=== PATIENT | female | born 1950 | race Caucasian/White ===

== ENCOUNTER → 2018-01-18 10:02 | Outpatient (CLI) | payer MEDICARE, OTHER, SELFPAY ==
[2018-01-18 12:01] LABS: Add Manual Diff / Slide Review NO; Basophils Percent Auto 0.8 % (0-2); Eosinophils Percent Auto 2.1 % (2-4); Hemoglobin 13.8 g/dL (12.0-16.0); Lymphocytes Percent Auto 27.6 % (25-40); Mean Corpuscular HGB Conc 33.6 % (30-36); Mean Corpuscular Volume 92.3 fL (80-100); Monocytes Percent Auto 9.7 % (3-14); Neutrophils Absolute Auto 3500 /uL (3000-5900); Neutrophils Percent Auto 59.8 % (50-75); Platelet Count 196 X10^3/uL (150-400); Red Blood Cell Count 4.45 X10^6/uL (4.0-5.2); Red Cell Distribution Width 12.9 % (11.6-14.8); White Blood Cell Count 5.9 X10^3/uL (4.5-11.0)
[2018-01-18 12:27] LABS: Alanine Aminotransferase 38 IU/L (9-52); Albumin 4.6 g/dL (3.5-5.0); Albumin Globulin Ratio 1.6 (1.0-2.8); Alkaline Phosphatase 100 U/L (38-126); Aspartate Aminotransferase 30 IU/L (14-36); Bilirubin Total 0.4 mg/dL (0.2-1.3); Blood Urea Nitrogen 20 mg/dL (7-17); Calcium 10.9 mg/dL (8.4-10.2); Carbon Dioxide 30 mmol/L (22-32); Chloride 102 mmol/L (98-107); Cholesterol 156 mg/dL (140-199); Estimated Glomerular Filt Rate > 60.0 mL/min (>60); Globulin 2.9 g/dL (1.7-4.1); Glucose 99 mg/dL (80-110); HDL Cholesterol 56 mg/dL (40-60); HEMOLYSIS < 15 (0-50); LDL Cholesterol Calculated 58 mg/dL (<100); Potassium 4.2 mmol/L (3.4-5.1); Sodium 143 mmol/L (137-145); Total Protein 7.5 g/dL (6.3-8.2); Triglycerides 209 mg/dL (35-150)
[2018-01-18 13:07] LABS: Thyroid Stimulating Hormone 3.64 uIU/mL (0.47-4.68)
== END ==
PROVIDERS: PCP Family Medicine; Visit Provider Family Medicine
DX: I10 Essential (primary) hypertension (principal); Z86.79 Personal history of other diseases of the circulatory system; E78.5 Hyperlipidemia, unspecified
CPT/HCPCS: 36415; 80053; 80061; 84443; 85025

== ENCOUNTER → 2018-01-25 11:17 | Outpatient (CLI) | payer MEDICARE, OTHER, SELFPAY ==
[2018-01-25 11:31] LABS: Appearance Urine UA CLEAR; Bilirubin Urine UA NEGATIVE (NEGATIVE); Color Urine UA YELLOW; Glucose Urine UA NEGATIVE (Normal); Ketones Urine UA NEGATIVE (NEGATIVE); Leukocyte Esterase Urine UA NEGATIVE (NEGATIVE); Nitrite Urine UA NEGATIVE (Negative); Occult Blood Urine UA NEGATIVE (Negative); Protein Urine UA NEGATIVE (Negative); Specific Gravity Urine UA 1.015 (1.000-1.035); Urobilinogen Urine UA 0.2 E.U./dL (0.2); pH Urine UA 6.5 (4.5-8.0)
== END ==
PROVIDERS: PCP Family Medicine; Visit Provider Family Medicine
DX: E78.5 Hyperlipidemia, unspecified (principal); I10 Essential (primary) hypertension; I25.10 Atherosclerotic heart disease of native coronary artery without angina pectoris; Z86.79 Personal history of other diseases of the circulatory system
CPT/HCPCS: 81003

== ENCOUNTER → 2018-01-31 12:19 | Outpatient (CLI) | payer MEDICARE, OTHER, SELFPAY ==
--- NOTE | 2018-01-31 | DI.MG.S_ITS ---
BILATERAL DIGITAL SCREENING MAMMOGRAM 3D/2D WITH CAD: 01/31/2018 CLINICAL: Routine screening. Comparison is made to exams dated: 07/22/2016 mammogram - [facility], 06/24/2015 mammogram, and 12/01/2012 mammogram - [facility]. There are scattered fibroglandular elements in both breasts. Current study was also evaluated with a Computer Aided Detection (CAD) system. No significant masses, calcifications, or other findings are seen in either breast. There has been no significant interval change. IMPRESSION: NEGATIVE There is no mammographic evidence of malignancy. A 1 year screening mammogram is recommended. This exam was interpreted at Station ID: [id number]. NOTE: For mammograms, a report in lay terms will be sent to the patient. Approximately 15% of breast malignancies will not be visualized mammographically. In the management of a palpable breast mass, a negative mammogram must not discourage biopsy of a clinically suspicious lesion. Electronically Signed By: Lindsay chen/mamie:02/01/2018 09:08:37 letter sent: Normal Exam ACR BI-RADS Category 1: Negative 3341F
== END ==
PROVIDERS: PCP Family Medicine; Visit Provider Family Medicine
DX: Z12.31 Encounter for screening mammogram for malignant neoplasm of breast (principal)
CPT/HCPCS: 77063; 77067

== ENCOUNTER 2018-07-05 10:05 | Day surgery (SDC) | payer MEDICARE, OTHER, SELFPAY ==
--- NOTE | 2018-07-05 | PATH_ITS ---
[facility] Accession Number: [id number] . 01 Material submitted: . SIGMOID COLON POLYP X2 AT 18CM . 02 Diagnosis: Biopsies, Sigmoid Colon Polyps At 18 CM: Tubular adenoma involving two biopsy fragments. I/07/06/2018 . 02 Electronically signed: . Jonathan Fishman MD, Pathologist NPI- [id number] . 01 Gross description: . SIGMOID COLON POLYP X2 AT 18CM: Received in formalin are multiple fragment(s) of gray, soft tissue measuring 0.8 x 0.6 x 0.2 cm in aggregate submitted entirely in 1 cassette(s) /CKI /CKI . 02 Pathologist provided ICD-10: D12.5 . 02 CPT . 950137 Performed at: 01 [facility] [address] [place] [address], [place], [place] [id number] MD Imer Spann MD Phone: [phone] Performed at: 02 [facility] [address] [place], [place] [id number] MD Nayla Balbuena MD Phone: [phone]
[2018-07-05 10:22] VITALS: BP 142/72; PULSE 66; RESP 16; TEMP 37; O2SAT 96; BMI 29.5
[2018-07-05] MEDS: SODIUM CHLORIDE 0.9% 1,000 ML 100 ML IV (10:46)
--- NOTE | 2018-07-05 11:03 | P.HP_ITS ---
History of Present Illness Date Patient Seen: 07/05/18 Time Patient Seen: 11:00 Chief complaint: [id number] Narrative: 68-year-old female who presents for colorectal screening. Last examination was several years ago. However, she has multiple comorbid medical conditions as well as chronic anticoagulation with Eliquis. She was seen recently in the office in preparation for endoscopy. Consultation with her special agent group insurance confirmed discontinuation of her anticoagulation without any bridging Lovenox for 3 days prior to the procedure. Patient presents today for planned colonoscopy having stopped her anticoagulation accordingly. She had no difficulties with a arrhythmias during the preparation yesterday. Otherwise she denies any gastrointestinal symptoms as previously documented. Patient History Family & Social History Social History: household members spouse Tobacco & Substance use: Smoking Status Never smoker alcohol intake current Meds Home Medications Medication Instructions Recorded Confirmed Type coenzyme Q10 [Co Q-10] 200 mg PO QDAY #0 12/25/15 07/05/18 History lutein 20 mg PO #0 12/25/15 06/01/18 History vitamin E 450 mg PO QDAY #0 05/13/17 06/01/18 History aspirin 81 mg PO QDAY #0 05/19/17 07/05/18 History atorvastatin 80 mg tablet 80 mg PO HS #90 tab 09/08/17 07/05/18 Rx apixaban 5 mg tablet 5 mg PO BID #60 tab 01/05/18 07/05/18 Rx diltiazem CD 180 mg 180 mg PO QDAY #30 cap 01/05/18 07/05/18 Rx capsule,extended release 24 hr lamotrigine 150 mg tablet 150 mg PO QDAY #90 tab 01/05/18 07/05/18 Rx magnesium 200 mg tablet 400 mg PO DAILY tab 06/01/18 07/05/18 History quetiapine 200 mg tablet 400 mg PO HS #60 tab 07/04/18 Rx Allergies Allergy/AdvReac Type Severity Reaction Status Date / Time No Known Drug Allergies Allergy Verified 06/01/18 10:51 Review of Systems Review of Systems All systems reviewed & are unremarkable except as noted in HPI and below Exam Vital Signs (past 8 hours): - 07/05/18 10:22 Temperature 98.6 F Pulse Rate 66 Respiratory Rate 16 Blood Pressure 142/72 H Pulse Oximetry 96 Oxygen Delivery Method Room Air Narrative Exam Narrative: Well-nourished well-developed female in no acute distress. Alert oriented x3 Sclera nonicteric No crackles or wheezes Abdomen soft, nondistended, nontender, no masses Extremities show no clubbing or cyanosis Objective Labs Labs: No recent laboratory studies or radiographic studies for review Assessment & Plan Assessment & Plan narrative: 68-year-old female who presents for colorectal surveillance. Colonoscopy is once again recommended. She has stopped her anticoagulation accordingly. Bowel preparation is completed. History physical examination as documented May 2018 is on the chart otherwise remains unchanged except as above. Technical details of colonoscopy reiterated. Risks, benefits, alternatives including colonic perforation were discussed. Again, all risks, benefits, alternatives have been reviewed at her previous visit as documented in May 2018. All questions were answered to her satisfaction again today, and she voiced understanding. Consent was placed on the chart. We will proceed as above.
--- NOTE | 2018-07-05 11:03 | PM.PREOP ---
Pre-operative Note Interval Note History & Physical reviewed/Exam performed by Physician: Yes Changes to H&P: No H&P completed within 30 days and has changed as indicated here:: Patient seen and examined once again today. History and physical examination placed on the chart. Anticoagulation has been stopped several days ago per instructions. Proceed with colonoscopy today under anesthesia as planned. Again, please see all documentation from May 2018 regarding need for anesthesia for endoscopy.
[2018-07-05 11:35] VITALS: BP 129/57; PULSE 60; RESP 15; TEMP 36.6; O2SAT 93
[2018-07-05 11:39] VITALS: BP 137/55; PULSE 60; RESP 14; O2SAT 96
[2018-07-05 11:45] VITALS: BP 134/60; PULSE 61; RESP 16; O2SAT 95
--- NOTE | 2018-07-05 11:47 | P.OP.ENDO_ITS ---
Operative Date/Time/Diagnoses Date of procedure: 07/05/18 Time of procedure: 11:43 Pre-op diagnosis: Colorectal screening Post-op diagnosis: other (Diverticulosis and sigmoid colon polyps) Procedure & Clinicians Study performed: Colonoscopy with cold forceps polypectomies Same procedure as scheduled: Yes Indications: 68-year-old female who required colorectal screening by age criteria as well as the significant time since her last procedure. Colonoscopy is recommended. She has significant cardiac issues including arrhythmias, myocardial infarction, need for chronic anticoagulation, hyperglycemia, and depressive disorder requiring medications which necessitated anesthesiology services. Surgeon: Bryan Schrader Procedure Notes SCOAP/Timeout: Yes Procedure in detail: After obtaining informed consent, the patient was brought to the OR and placed in the left lateral decubitus position on the examination table. After placement of appropriate monitors, the patient was given anesthesia. Please see their records for further details. A time out was held per SCOAP protocol. A digital rectal examination was performed and did not reveal any masses or obstructing lesions. The colonoscope was gently passed into the patient's anus and the entire colon navigated to the level of the cecum with minimal difficulty. Terminal ileum was intubated and noted to be grossly normal. Once in the cecum, the scope was withdrawn being sure to go before and beyond all mucosal folds and prominences and get an excellent examination. The findings are noted above. At the level of the rectal vault, the scope was retroflexed and the internal anal canal was examined. The scope was straightened and air aspirated from the colon. The instrument was removed from the patient's body and the procedure was concluded. The patient was allowed to awaken without difficulty and taken to the post- anesthesia care unit in good condition. Scope withdrawal time: 11:14 min Sedation minutes: 0 Findings: diverticulosis and polyp Specimen(s): other (Sigmoid colon polyps x2 at 18 cm) Complications: none Recommendations: Colonscopy in 5 years, High fiber diet and Will call with biopsy results Plan for aftercare: 1. Discharge home Follow up: as needed Disposition: PACU
[2018-07-05 11:49] VITALS: BP 123/65; PULSE 62; RESP 11; TEMP 36.1; O2SAT 96
[2018-07-05 12:05] VITALS: BP 147/67; PULSE 60; RESP 16; TEMP 36.2; O2SAT 97
== END 2018-07-05 12:25 | disposition home or self-care (01) ==
PROVIDERS: PCP Family Medicine; Visit Provider Surgery
PROC: 0DJD8ZZ Inspection of Lower Intestinal Tract, Via Natural or Artificial Opening Endoscopic (ICD-10-PCS; CPT 45378; principal; 2018-07-05 11:30)
DX: Z12.11 Encounter for screening for malignant neoplasm of colon (principal); K57.30 Diverticulosis of large intestine without perforation or abscess without bleeding; D12.5 Benign neoplasm of sigmoid colon; Z79.01 Long term (current) use of anticoagulants
CPT/HCPCS: 45380; 88305; J2250; J3010

== ENCOUNTER → 2018-07-26 10:11 | Outpatient (CLI) | payer MEDICARE, OTHER, SELFPAY ==
[2018-07-26 11:15] LABS: Alanine Aminotransferase 26 IU/L (9-52); Albumin 4.5 g/dL (3.5-5.0); Albumin Globulin Ratio 1.6 (1.0-2.8); Alkaline Phosphatase 86 U/L (38-126); Aspartate Aminotransferase 23 IU/L (14-36); BUN Creatinine Ratio 28.6 (6-22); Bilirubin Total 0.4 mg/dL (0.2-1.3); Blood Urea Nitrogen 20 mg/dL (7-17); Calcium 10.3 mg/dL (8.4-10.2); Carbon Dioxide 29 mmol/L (22-32); Chloride 103 mmol/L (98-107); Cholesterol 143 mg/dL (140-199); Estimated Glomerular Filt Rate > 60.0 mL/min (>60); Globulin 2.9 g/dL (1.7-4.1); Glucose 106 mg/dL (80-110); HDL Cholesterol 59 mg/dL (40-60); HEMOLYSIS < 15 (0-50); LDL Cholesterol Calculated 56 mg/dL (<100); Potassium 4.2 mmol/L (3.4-5.1); Sodium 139 mmol/L (137-145); Total Protein 7.4 g/dL (6.3-8.2); Triglycerides 139 mg/dL (35-150)
== END ==
PROVIDERS: PCP Family Medicine; Visit Provider Family Medicine
DX: I48.0 Paroxysmal atrial fibrillation (principal); I48.91 Unspecified atrial fibrillation; R73.9 Hyperglycemia, unspecified; Z86.79 Personal history of other diseases of the circulatory system
CPT/HCPCS: 36415; 80053; 80061

== ENCOUNTER → 2018-10-19 08:54 | Outpatient (CLI) | payer MEDICARE, OTHER, SELFPAY ==
[2018-10-19 09:51] LABS: Add Manual Diff / Slide Review NO; Basophils Absolute Auto 0 /uL (0-100); Basophils Percent Auto 0.7 % (0-2); Eosinophils Absolute Auto 100 /uL (0-450); Eosinophils Percent Auto 1.9 % (2-4); Hematocrit 39.8 % (36-46); Hemoglobin 13.5 g/dL (12.0-16.0); Lymphocytes Absolute Auto 1700 /uL (1100-4500); Lymphocytes Percent Auto 26.5 % (25-40); Mean Corpuscular HGB Conc 33.8 % (30-36); Mean Corpuscular Hemoglobin 31.5 PG (26-34); Monocytes Absolute Auto 600 /uL (0-900); Monocytes Percent Auto 9.4 % (3-14); Neutrophils Absolute Auto 3900 /uL (1500-7000); Neutrophils Percent Auto 61.5 % (50-75); Platelet Count 191 X10^3/uL (150-400); Red Blood Cell Count 4.27 X10^6/uL (4.0-5.2); Red Cell Distribution Width 13.2 % (11.6-14.8); White Blood Cell Count 6.3 X10^3/uL (4.5-11.0)
[2018-10-19 10:22] LABS: Alanine Aminotransferase 27 IU/L (9-52); Albumin 4.5 g/dL (3.5-5.0); Albumin Globulin Ratio 1.6 (1.0-2.8); Alkaline Phosphatase 90 U/L (38-126); Aspartate Aminotransferase 26 IU/L (14-36); BUN Creatinine Ratio 25.7 (6-22); Bilirubin Total 0.5 mg/dL (0.2-1.3); Blood Urea Nitrogen 18 mg/dL (7-17); Calcium 10.8 mg/dL (8.4-10.2); Carbon Dioxide 30 mmol/L (22-32); Chloride 105 mmol/L (98-107); Cholesterol 127 mg/dL (140-199); Estimated Glomerular Filt Rate > 60.0 mL/min (>60); Globulin 2.9 g/dL (1.7-4.1); Glucose 103 mg/dL (80-110); HDL Cholesterol 48 mg/dL (40-60); HEMOLYSIS < 15 (0-50); LDL Cholesterol Calculated 36 mg/dL (<100); Sodium 143 mmol/L (137-145); Total Protein 7.4 g/dL (6.3-8.2); Triglycerides 217 mg/dL (35-150)
[2018-10-19 10:49] LABS: Thyroid Stimulating Hormone 4.03 uIU/mL (0.47-4.68)
== END ==
PROVIDERS: PCP Family Medicine; Visit Provider Family Medicine
DX: F41.8 Other specified anxiety disorders (principal); I21.4 Non-ST elevation (NSTEMI) myocardial infarction; I48.0 Paroxysmal atrial fibrillation; R73.9 Hyperglycemia, unspecified; Z86.79 Personal history of other diseases of the circulatory system
CPT/HCPCS: 36415; 80053; 80061; 84443; 85025

== ENCOUNTER → 2019-03-07 17:01 | Outpatient (CLI) | payer MEDICARE, OTHER, SELFPAY ==
--- NOTE | 2019-03-07 | DI.MG.S_ITS ---
BILATERAL DIGITAL SCREENING MAMMOGRAM 3D/2D WITH CAD: 03/07/2019 CLINICAL: Routine screening. Comparison is made to exams dated: 01/31/2018 mammogram, 07/22/2016 mammogram - [facility], and 06/24/2015 mammogram - [facility]. There are scattered fibroglandular elements in both breasts. Current study was also evaluated with a Computer Aided Detection (CAD) system. No significant masses, calcifications, or other findings are seen in either breast. There has been no significant interval change. IMPRESSION: NEGATIVE There is no mammographic evidence of malignancy. A 1 year screening mammogram is recommended. This exam was interpreted at Station ID: [id number]. NOTE: For mammograms, a report in lay terms will be sent to the patient. Approximately 15% of breast malignancies will not be visualized mammographically. In the management of a palpable breast mass, a negative mammogram must not discourage biopsy of a clinically suspicious lesion. Electronically Signed By: Imer talbert/mamie:03/07/2019 17:53:36 letter sent: Normal Exam ACR BI-RADS Category 1: Negative 3341F
== END ==
PROVIDERS: PCP Family Medicine; Visit Provider Family Medicine
DX: Z12.31 Encounter for screening mammogram for malignant neoplasm of breast (principal)
CPT/HCPCS: 77063; 77067

== ENCOUNTER 2019-05-28 08:56 | Emergency (ER) | payer MEDICARE, OTHER, SELFPAY ==
[2019-05-28 09:11] VITALS: BP 156/81; PULSE 141; RESP 18; TEMP 36.4; O2SAT 97; BMI 31.0
--- NOTE | 2019-05-28 09:17 | DI.RAD.S_ITS ---
PROCEDURE: XR CHEST 1V INDICATIONS: atrial fibrillation with RVR TECHNIQUE: One view of the chest was acquired. COMPARISON: [facility], CHEST 1 VIEW, 03/25/2017, 23:56. [facility], CHEST 1 VIEW, 05/05/2016, 9:32. [facility], CHEST 1 VIEW, 04/16/2017, 4:40. FINDINGS: Surgical changes and devices: None. Lungs and pleura: Lungs are clear. No pleural effusions or pneumothorax. Mediastinum: Mediastinal contours appear normal. Heart size is normal. Bones and chest wall: No suspicious bony lesions. Overlying soft tissues appear unremarkable. IMPRESSION: Portable chest within normal limits. Dictated by: Shantanu Butcher M.D. on 05/28/2019 at 8:28 Approved by: Shantanu Butcher M.D. on 05/28/2019 at 8:29
[2019-05-28 09:27] LABS: Add Manual Diff / Slide Review NO; Basophils Absolute Auto 100 /uL (0-100); Basophils Percent Auto 0.8 % (0-2); Eosinophils Absolute Auto 100 /uL (0-450); Hematocrit 45.3 % (36-46); Hemoglobin 15.3 g/dL (12.0-16.0); Lymphocytes Absolute Auto 1600 /uL (1100-4500); Mean Corpuscular HGB Conc 33.7 % (30-36); Mean Corpuscular Hemoglobin 31.3 PG (26-34); Mean Corpuscular Volume 92.7 fL (80-100); Monocytes Absolute Auto 500 /uL (0-900); Monocytes Percent Auto 8.9 % (3-14); Neutrophils Absolute Auto 3600 /uL (1500-7000); Neutrophils Percent Auto 61.3 % (50-75); Platelet Count 215 X10^3/uL (150-400); Red Blood Cell Count 4.89 X10^6/uL (4.0-5.2); Red Cell Distribution Width 13.3 % (11.6-14.8); White Blood Cell Count 5.9 X10^3/uL (4.5-11.0)
[2019-05-28 09:30] VITALS: BP 156/81; PULSE 120
[2019-05-28 09:30] LABS: BUN Creatinine Ratio 25.7 (6-22); Blood Urea Nitrogen 18 mg/dL (7-17); Carbon Dioxide 24 mmol/L (22-32); Chloride 108 mmol/L (98-107); Creatine Kinase 63 U/L (30-135); Estimated Glomerular Filt Rate > 60.0 mL/min (>60); Glucose 138 mg/dL (80-110); HEMOLYSIS < 15 (0-50); Magnesium 2.1 mg/dL (1.6-2.3); Potassium 4.1 mmol/L (3.4-5.1); Sodium 141 mmol/L (137-145)
[2019-05-28] MEDS: dilTIAZem 5 MG/ML SDV 20 MG IV (09:30)
[2019-05-28] MEDS: SODIUM CHLORIDE 0.9% 1,000 ML 1000 ML IV (09:30)
[2019-05-28 09:42] LABS: Troponin I < 0.012 ng/mL (0.01-0.034)
[2019-05-28 09:43] VITALS: BP 138/77; PULSE 104; RESP 17; O2SAT 96
--- NOTE | 2019-05-28 09:55 | ED_ITS ---
HPI - Arrhythmia/Palpitations General Chief Complaint: Arrhythmia/Palpitations Stated Complaint: heart out of ryth Source: patient Mode of arrival: Ambulatory History of Present Illness HPI narrative: CC: Palpitations and rapid heart rate HPI: The patient is a 68-year-old female who presents to the emergency department with atrial fibrillation with rapid ventricular rate. She states that it has been 2 years since she has had rapid heart rate. She denied any pain or discomfort. She states that her rapid heart rate started last night around 9:00 p.m.. She denies any chest pain dizziness lightheadedness. She did feel mildly short of breath. She had no sweats. She has not been ataxic or having any headache. She denied any fever chills or sweats. She had no abdominal pain nausea vomiting diarrhea change in bowel habits dysuria or increased urinary frequency. She states that she used to smoke years ago but does not drink alcohol. She is currently on Eliquis for her atrial fib. She had a myocardial infarction in 2017 but denies any congestive heart failure hypertension or diabetes mellitus. Related Data Home Medications Medication Instructions Recorded Confirmed coenzyme Q10 [Co Q-10] 200 mg PO QDAY #0 12/25/15 05/28/19 lutein 20 mg PO DAILY #0 12/25/15 05/28/19 vitamin E 450 mg PO QDAY #0 05/13/17 05/28/19 aspirin 81 mg PO QDAY #0 05/19/17 05/28/19 magnesium 200 mg tablet 400 mg PO DAILY tab 06/01/18 05/28/19 cholecalciferol (vitamin D3) 1,000 unit PO DAILY 05/28/19 05/28/19 [Vitamin D3] Previous Rx's Medication Instructions Recorded apixaban 5 mg tablet 5 mg PO BID #180 tab 04/14/19 atorvastatin 80 mg tablet 80 mg PO HS #90 tab 04/14/19 diltiazem HCl 180 mg 180 mg PO QDAY #90 cap 04/14/19 capsule,extended release 24 hr lamotrigine 150 mg tablet 150 mg PO QDAY #90 tab 04/14/19 quetiapine 200 mg tablet 400 mg PO HS #180 tab 04/14/19 diltiazem HCl [Cardizem CD] 240 mg PO DAILY #15 cap 05/28/19 diltiazem HCl [Cardizem] 60 mg PO TID #10 tab 05/28/19 metoprolol succinate 25 mg PO DAILY #15 tab 05/28/19 Allergies Allergy/AdvReac Type Severity Reaction Status Date / Time No Known Drug Allergies Allergy Verified 05/28/19 09:11 Review of Systems Review of Systems Narrative: Her review of systems were all negative except for those mentioned in history of present illness. Patient History Medical History AF (paroxysmal atrial fibrillation) (Chronic) Anxiety (Chronic) Bipolar disorder (Chronic) Coronary artery disease (Chronic) Depression (Chronic) Family history of colon cancer in father (Acute) Hyperlipemia (Chronic) Hypertension (Chronic) Low back pain (Resolved ~07/2016) Myocardial infarction (Resolved ~04/2016) Social History marital status: household members: spouse Smoking Status: Never smoker alcohol intake: current Smoking Status: Never smoker Exam Narrative Exam Narrative: PHYSICAL EXAM: CONSTITUTIONAL: Awake, Alert, Oriented, Coherent, Cooperative in NAD. HEAD: AT/NC EENT: PERRL, FROM of eyes, no discharge, Oral mucosa is moist and pink, posterior pharynx is without erythema or exudate. NECK: Supple, no obvious JVD, Trachea is midline without stridor, no palpable LN SPINE: No gross deformity, no palpable tenderness of the cervical, thoracic, lumbar or sacral spine. No CVA tenderness. THORAX: No deformity, retractions, chest wall tenderness, subcutaneous air or crepitice. LUNGS: Clear with symmetrical breath sounds without respiratory distress HEART: Heart tones are irregular irregular without murmur.. ABDOMEN: Soft, non-tender, normal bowel sounds without guarding, rebound, rigidity or palpable mass EXTREMITIES: No edema, cyanosis, deformity or tenderness. SKIN: No rash, bruising, petechiae or purpura. NEURO: Awake, alert, oriented, conversive, cranial nerves II-XII are symmetrical and normal, moves all 4 extremities Initial Vital Signs Initial Vital Signs: Vital Signs Temperature 97.6 F 05/28/19 09:11 Pulse Rate 141 H 05/28/19 09:11 Respiratory Rate 18 05/28/19 09:11 Blood Pressure 156/81 H 05/28/19 09:11 Pulse Oximetry 97 02/16/20 09:11 Course Course Course Narrative: 0955: The patient's heart rate has improved and ranges between 85-101 after being administered 20 mg of Cardizem IV. A repeat EKG will be ordered. The patient has no complaints and feels just fine. 1050: The patient does not have any chest pain shortness of breath dizziness. Her rate is under control but remains in atrial fibrillation. She takes 180 mg of Cardizem per day. I discussed with her keeping a diary of her episodes of rapid heart rate and even possibly getting an Apple watch to monitor her rhythm and rapid heart rate. I advised her to follow-up with her primary care physician and manager account management to just be re-evaluated and reassessed her medications. I am not going to increase her medications at this time. She was instructed to keep a diary and to monitor how fast and when she has an episode. Her rate was controlled with 10 mg of Cardizem IV. Orders Ordered: Discontinued Medications Diltiazem HCl (Cardizem) 20 mg IV NOW ONE Stop: 05/28/19 09:18 Last Admin: 05/28/19 09:30 Dose: 20 mg Documented by: KRISHAN Sodium Chloride (Normal Saline 0.9%) 1,000 mls @ 1,000 mls/hr IV BOLUS ONE Stop: 05/28/19 10:16 Last Infusion: 05/28/19 10:30 Dose: 0 mls/hr Documented by: Admin: 05/28/19 09:30 Dose: 1,000 mls/hr Documented by: KRISHAN Vital Signs Vital signs: Vital Signs - 8 hr 05/28/19 09:11 05/28/19 09:30 05/28/19 09:43 Temperature 97.6 F Pulse Rate 141 H 120 H 104 H Respiratory Rate 18 17 Blood Pressure 156/81 H 156/81 H Blood Pressure [Right Arm] 138/77 Pulse Oximetry 97 96 05/28/19 10:00 05/28/19 10:30 Temperature Pulse Rate 82 104 H Respiratory Rate 11 L 22 Blood Pressure Blood Pressure [Right Arm] 130/67 117/74 Pulse Oximetry 97 MDM - Arrhythmia/Palpitations Lab Data Result diagrams: 05/28/19 09:10 05/28/19 09:10 Labs: Lab Results 05/28/19 05/28/19 Range/Units 09:10 09:10 WBC 5.9 (4.5-11.0) X10^3/uL RBC 4.89 (4.0-5.2) X10^6/uL Hgb 15.3 (12.0-16.0) g/dL Hct 45.3 (36-46) % MCV 92.7 (80-100) fL MCH 31.3 (26-34) PG MCHC 33.7 (30-36) % RDW 13.3 (11.6-14.8) % Plt Count 215 (150-400) X10^3/uL Neut % (Auto) 61.3 (50-75) % Lymph % (Auto) 27.0 (25-40) % [place] % (Auto) 8.9 (3-14) % Eos % (Auto) 2.0 (2-4) % Baso % (Auto) 0.8 (0-2) % Neut # (Auto) 3600 (7184-4431) /uL Lymph # (Auto) 1600 (6525-3299) /uL [place] # (Auto) 500 (0-900) /uL Eos # (Auto) 100 (0-450) /uL Baso # (Auto) 100 (0-100) /uL Sodium 141 (137-145) mmol/L Potassium 4.1 (3.4-5.1) mmol/L Chloride 108 H (98-107) mmol/L Carbon Dioxide 24 (22-32) mmol/L BUN 18 H (7-17) mg/dL Creatinine 0.70 (0.52-1.04) mg/dL Estimated GFR > 60.0 (>60) mL/min BUN/Creatinine Ratio 25.7 H (6-22) Glucose 138 H (80-110) mg/dL Calcium 10.0 (8.4-10.2) mg/dL Magnesium 2.1 (1.6-2.3) mg/dL Total Creatine Kinase 63 (30-135) U/L CK-MB (CK-2) TNP CK-MB (CK-2) Rel Index TNP Troponin I < 0.012 (0.01-0.034) ng/mL Discharge Plan Departure Patient Disposition: Home Clinical Impression: Paroxysmal atrial fibrillation, Atrial fibrillation with RVR Discharge Date/Time: 05/28/19 11:14 Instructions: DI for Atrial Fibrillation, DI for Arrhythmias, DI for Paroxysmal Supraventricular Tachycardia Activity Restrictions/Additional Instructions: 1. Call your primary care physician and manager account management's office and make a follow- up appointment. 2. Keep a diary of when you have your rapid heart rate episodes. Trying discover what triggered it or what she did that was different. If you develop dizziness shortness of breath chest pain rapid heart rate you need to be seen in the emergency department so that we can slow the rate down and control the rate. 3. Continue to take all of your medications as you are currently doing. Prescriptions: No Action coenzyme Q10 [Co Q-10] 100 MG capsule 200 mg PO QDAY Qty: 0 RF: 0 lutein 20 MG tablet 20 mg PO DAILY Qty: 0 RF: 0 vitamin E 400 unit Capsule 450 mg PO QDAY Qty: 0 RF: 0 aspirin 81 MG tablet,chewable 81 mg PO QDAY Qty: 0 RF: 0 Eliquis 5 mg tablet 5 mg PO BID Qty: 180 RF: 0 atorvastatin 80 mg tablet 80 mg PO HS Qty: 90 RF: 1 diltiazem HCl [Cartia XT] 180 mg capsule,extended release 24hr 180 mg PO QDAY Qty: 90 RF: 1 lamotrigine 150 mg tablet 150 mg PO QDAY Qty: 90 RF: 1 quetiapine [Seroquel] 200 mg tablet 400 mg PO HS Qty: 180 RF: 1 magnesium 200 mg tablet 400 mg PO DAILY RF: 0 diltiazem HCl [Cardizem CD] 240 mg capsule,extended release 24hr 240 mg PO DAILY Qty: 15 RF: 1 diltiazem HCl [Cardizem] 60 mg tablet 60 mg PO TID Qty: 10 RF: 1 metoprolol succinate 25 mg tablet extended release 24 hr 25 mg PO DAILY Qty: 15 RF: 1 cholecalciferol (vitamin D3) [Vitamin D3] 25 mcg (1,000 unit) Capsule 1,000 unit PO DAILY RF: 0 Referrals: Sherry Haney DO [Primary Care Provider] -
[2019-05-28 10:00] VITALS: BP 130/67; PULSE 82; RESP 11; O2SAT 97
[2019-05-28 10:30] VITALS: BP 117/74; PULSE 104; RESP 22
[2019-05-28 11:00] VITALS: BP 120/63; PULSE 93; RESP 18; O2SAT 95
== END 2019-05-28 11:14 | disposition home or self-care (01) ==
PROVIDERS: Emergency Provider Emergency Medicine; PCP Family Medicine
DX: I48.0 Paroxysmal atrial fibrillation (principal); I48.20 Chronic atrial fibrillation, unspecified
CPT/HCPCS: 36415; 71045; 80048; 82550; 83735; 84484; 85025; 93005

== ENCOUNTER 2019-05-28 16:18 | Emergency (ER) | payer MEDICARE, OTHER, SELFPAY ==
[2019-05-28] VITALS (7 sets, daily range): BP systolic 126–173; BP diastolic 70–80; PULSE 64–133; RESP 12–22; TEMP 36.8; O2SAT 95–98; BMI 31.0
[2019-05-28] MEDS: dilTIAZem 5 MG/ML SDV 20 MG IV (16:56)
--- NOTE | 2019-05-28 17:16 | ED.ARRPALP ---
HPI - Arrhythmia/Palpitations General Chief Complaint: Arrhythmia/Palpitations Stated Complaint: states heart flutter Time Seen by Provider: 05/28/19 16:37 Source: patient Mode of arrival: Ambulatory History of Present Illness HPI narrative: CC: Palpitations and chest fluttering HPI: The patient is a 68-year-old female with a history of paroxysmal atrial fib with rapid ventricular rate. After being seen earlier this morning in the emergency department for a palpitations and atrial fibrillation rapid ventricular rate she went home and did some like cleaning when the fluttering return to her chest. It was irregular. And she just could not ignore the fluttering in her chest. She denied that she had any chest pain shortness of breath being dizzy and lightheaded. She denies that she had any back pain or neck pain. There was no jaw pain shoulder pain arm pain. She denies being nauseous having any vomiting diarrhea or confusion. Related Data Home Medications Medication Instructions Recorded Confirmed coenzyme Q10 [Co Q-10] 200 mg PO QDAY #0 12/25/15 05/28/19 lutein 20 mg PO DAILY #0 12/25/15 05/28/19 vitamin E 450 mg PO QDAY #0 05/13/17 05/28/19 aspirin 81 mg PO QDAY #0 05/19/17 05/28/19 magnesium 200 mg tablet 400 mg PO DAILY tab 06/01/18 05/28/19 cholecalciferol (vitamin D3) 1,000 unit PO DAILY 05/28/19 05/28/19 [Vitamin D3] Previous Rx's Medication Instructions Recorded apixaban 5 mg tablet 5 mg PO BID #180 tab 04/14/19 atorvastatin 80 mg tablet 80 mg PO HS #90 tab 04/14/19 diltiazem HCl 180 mg 180 mg PO QDAY #90 cap 04/14/19 capsule,extended release 24 hr lamotrigine 150 mg tablet 150 mg PO QDAY #90 tab 04/14/19 quetiapine 200 mg tablet 400 mg PO HS #180 tab 04/14/19 diltiazem HCl [Cardizem CD] 240 mg PO DAILY #15 cap 05/28/19 diltiazem HCl [Cardizem] 60 mg PO TID #10 tab 05/28/19 metoprolol succinate 25 mg PO DAILY #15 tab 05/28/19 Allergies Allergy/AdvReac Type Severity Reaction Status Date / Time No Known Drug Allergies Allergy Verified 05/28/19 09:11 Review of Systems Review of Systems Narrative: All review of systems were negative except for those mentioned in the history of present illness. Patient History Surgical History History of colonoscopy (Acute) History of knee replacement Family History Father Cancer Heart disease Mother Mental health problem Stroke Social History marital status: household members: spouse Smoking Status: Never smoker alcohol intake: current Smoking Status: Never smoker Exam Narrative Exam Narrative: PHYSICAL EXAM: CONSTITUTIONAL: Awake, Alert, Oriented, Coherent, Cooperative in NAD. EENT: PERRL, FROM of eyes, no discharge, , clear EAC No epistaxis or nasal drainage Oral mucosa is moist and pink, posterior pharynx is without erythema or exudate. NECK: Supple, no obvious JVD, Trachea is midline without stridor, no palpable LN SPINE: No gross deformity, no palpable tenderness of the cervical, thoracic, lumbar or sacral spine. No CVA tenderness. THORAX: No deformity, retractions, chest wall tenderness, subcutaneous air or crepitice. LUNGS: Clear with symmetrical breath sounds without respiratory distress HEART: Heart tones were tachycardic irregular irregular without an appreciable murmur ABDOMEN: Soft, non-tender, normal bowel sounds without guarding, rebound, rigidity or palpable mass EXTREMITIES: No edema, cyanosis, deformity or tenderness. SKIN: No rash, bruising, petechiae or purpura. NEURO: Awake, alert, oriented, conversive, cranial nerves II-XII are symmetrical and normal, moves all 4 extremities and is ambulatory Initial Vital Signs Initial Vital Signs: Vital Signs Temperature 98.3 F 05/28/19 16:20 Pulse Rate 133 H 05/28/19 16:20 Respiratory Rate 22 05/28/19 16:20 Blood Pressure 173/80 H 05/28/19 16:20 Pulse Oximetry 98 05/28/19 16:20 Course Course Course Narrative: 1720 the patient was seen earlier today for atrial fibrillation with a ventricular rate of 160-170. With 20 mg of Cardizem her rate came under control. The patient had no pain and discomfort. Tonight she redeveloped palpitations and came into the emergency department. 1729 the patient's heart rate is down to 65. The patient is not having any pain or discomfort. She will be given a new prescription for Cardizem 240 mg CD per day. She will be given a prescription for Cardizem 60 mg to be taken as a rescue medicine when she develops fluttering of her chest. She was advised that if she develops chest pain, shortness of breath, passing out, she needs to return to the emergency department. Otherwise she sits down takes the rescue medicine rests and wait to see if her heart rate improves. To control the heart rate she will be placed on metoprolol 25 mg once a day. She was advised to follow-up with her sand polisher for further evaluation and possible ablation 183: The patient's electrolytes and repeat troponin are normal. The patient will be discharged home. Orders Ordered: ED Orders 05/28/19 12:05 Basic Metabolic Panel Stat Troponin & CK Cardiac Panel Stat 05/28/19 16:34 EKG-12 Lead Stat 05/28/19 17:35 EKG-12 Lead Stat Discontinued Medications Diltiazem HCl (Cardizem) 20 mg IV NOW ONE Stop: 05/28/19 16:35 Last Admin: 05/28/19 16:56 Dose: 20 mg Documented by: OSCAR Diltiazem HCl (Cardizem) 60 mg PO NOW ONE Stop: 05/28/19 17:57 Last Admin: 05/28/19 18:08 Dose: 60 mg Documented by: OSCAR Metoprolol Succinate (Toprol Xl) 25 mg PO NOW ONE Stop: 05/28/19 17:36 Last Admin: 05/28/19 18:27 Dose: 25 mg Documented by: MATHEUS Vital Signs Vital signs: Vital Signs - 8 hr 05/28/19 16:20 05/28/19 16:48 05/28/19 16:56 Temperature 98.3 F Pulse Rate 133 H 120 H Respiratory Rate 22 Blood Pressure 173/80 H 158/79 H Blood Pressure [Right Arm] 158/79 H Pulse Oximetry 98 05/28/19 17:07 05/28/19 17:30 05/28/19 18:00 Temperature Pulse Rate 64 79 78 Respiratory Rate 12 13 14 Blood Pressure Blood Pressure [Right Arm] 128/75 126/78 128/72 Pulse Oximetry 95 97 97 05/28/19 18:40 Temperature Pulse Rate 90 Respiratory Rate 20 Blood Pressure Blood Pressure [Right Arm] 153/70 H Pulse Oximetry 97 MDM - Arrhythmia/Palpitations Lab Data Result diagrams: 05/28/19 12:05 Labs: Lab Results 05/28/19 Range/Units 12:05 Sodium 141 (137-145) mmol/L Potassium 4.0 (3.4-5.1) mmol/L Chloride 107 (98-107) mmol/L Carbon Dioxide 25 (22-32) mmol/L BUN 15 (7-17) mg/dL Creatinine 0.60 (0.52-1.04) mg/dL Estimated GFR > 60.0 (>60) mL/min BUN/Creatinine Ratio 25.0 H (6-22) Glucose 94 (80-110) mg/dL Calcium 9.9 (8.4-10.2) mg/dL Total Creatine Kinase 68 (30-135) U/L CK-MB (CK-2) TNP CK-MB (CK-2) Rel Index TNP Troponin I < 0.012 (0.01-0.034) ng/mL ECG Data Attestation: I personally reviewed and interpreted this ECG as follows: Interpretation: The patient was seen earlier today and return to the emergency department because she developed palpitations. The EKG obtained at 4:38 p.m.: 5 a reveals an atrial fib flutter pattern with rapid ventricular response. At this time the heart rate was 102. Monitor reveals that the patient has a ventricular rate of 130. The patient has Q-waves in lead V1 within up right T-wave versus flutter wave. The patient has slight ST segment elevations in leads III and AVF which may be secondary to the rate. Discharge Plan Departure Patient Disposition: Home Clinical Impression: Atrial fibrillation with RVR, Paroxysmal atrial fibrillation Discharge Date/Time: 05/28/19 19:21 Instructions: DI for Atrial Flutter, DI for Atrial Fibrillation, DI for Paroxysmal Supraventricular Tachycardia Activity Restrictions/Additional Instructions: 1. Follow up with your Executive Vice President Business Development. 2. Tomorrow start the Cardizem CD 240 mg every day until seen by your sand polisher 3. Take metoprolol 25 mg every day to help control your rate. 4. If you developed fluttering and rapid heart rate sit down and rest and take a Cardizem 60 mg capsule and weight for approximately 1 hour and see whether or not your heart rate slows down and the fluttering stops. If you develop dizziness, chest pain, lightheadedness feel like you are going to pass out then you need to proceed to the emergency department to be further evaluated. 5. Take the rest of your medications as prescribed. Prescriptions: New diltiazem HCl [Cardizem CD] 240 mg capsule,extended release 24hr 240 mg PO DAILY Qty: 15 RF: 1 diltiazem HCl [Cardizem] 60 mg tablet 60 mg PO TID Qty: 10 RF: 1 metoprolol succinate 25 mg tablet extended release 24 hr 25 mg PO DAILY Qty: 15 RF: 1 No Action coenzyme Q10 [Co Q-10] 100 MG capsule 200 mg PO QDAY Qty: 0 RF: 0 lutein 20 MG tablet 20 mg PO DAILY Qty: 0 RF: 0 vitamin E 400 unit Capsule 450 mg PO QDAY Qty: 0 RF: 0 aspirin 81 MG tablet,chewable 81 mg PO QDAY Qty: 0 RF: 0 Eliquis 5 mg tablet 5 mg PO BID Qty: 180 RF: 0 atorvastatin 80 mg tablet 80 mg PO HS Qty: 90 RF: 1 diltiazem HCl [Cartia XT] 180 mg capsule,extended release 24hr 180 mg PO QDAY Qty: 90 RF: 1 lamotrigine 150 mg tablet 150 mg PO QDAY Qty: 90 RF: 1 quetiapine [Seroquel] 200 mg tablet 400 mg PO HS Qty: 180 RF: 1 magnesium 200 mg tablet 400 mg PO DAILY RF: 0 cholecalciferol (vitamin D3) [Vitamin D3] 25 mcg (1,000 unit) Capsule 1,000 unit PO DAILY RF: 0 Referrals: Sherry Haney DO [Primary Care Provider] -
[2019-05-28 17:42] LABS: Blood Urea Nitrogen 15 mg/dL (7-17); Calcium 9.9 mg/dL (8.4-10.2); Carbon Dioxide 25 mmol/L (22-32); Chloride 107 mmol/L (98-107); Creatine Kinase 68 U/L (30-135); Estimated Glomerular Filt Rate > 60.0 mL/min (>60); Glucose 94 mg/dL (80-110); HEMOLYSIS 26 (0-50); Sodium 141 mmol/L (137-145)
[2019-05-28 17:54] LABS: Troponin I < 0.012 ng/mL (0.01-0.034)
[2019-05-28] MEDS: dilTIAZem 30 MG TABLET 60 MG PO (18:08)
[2019-05-28] MEDS: METOPROLOL ER 25 MG TABLET PO (18:27)
== END 2019-05-28 19:21 | disposition home or self-care (01) ==
PROVIDERS: Emergency Provider Emergency Medicine; PCP Family Medicine
DX: I48.20 Chronic atrial fibrillation, unspecified (principal); I48.0 Paroxysmal atrial fibrillation
CPT/HCPCS: 36415; 71045; 80048; 82550; 83735; 84484; 85025; 93005; 96361; 96374; 96375; 99284

== ENCOUNTER → 2019-10-18 10:45 | Outpatient (CLI) | payer MEDICARE, OTHER, SELFPAY ==
[2019-10-18 11:40] LABS: Alanine Aminotransferase 26 IU/L (<35); Albumin 4.5 g/dL (3.5-5.0); Albumin Globulin Ratio 1.6 (1.0-2.8); Alkaline Phosphatase 99 U/L (38-126); Aspartate Aminotransferase 26 IU/L (14-36); BUN Creatinine Ratio 25.4 (6-22); Bilirubin Total 0.6 mg/dL (0.2-1.3); Blood Urea Nitrogen 17 mg/dL (7-17); Calcium 10.2 mg/dL (8.4-10.2); Carbon Dioxide 28 mmol/L (22-32); Chloride 105 mmol/L (98-107); Cholesterol 134 mg/dL (140-199); Estimated Glomerular Filt Rate > 60.0 mL/min (>60); Globulin 2.8 g/dL (1.7-4.1); Glucose 113 mg/dL (80-110); HDL Cholesterol 46 mg/dL (40-60); HEMOLYSIS 16 (0-50); LDL Cholesterol Calculated 54 mg/dL (<100); Potassium 4.4 mmol/L (3.4-5.1); Sodium 139 mmol/L (137-145); Total Protein 7.3 g/dL (6.3-8.2); Triglycerides 172 mg/dL (35-150)
== END ==
PROVIDERS: PCP Internal Medicine; Referring Provider Internal Medicine; Visit Provider Internal Medicine
DX: I10 Essential (primary) hypertension (principal); E78.5 Hyperlipidemia, unspecified
CPT/HCPCS: 36415; 80053; 80061

== ENCOUNTER → 2020-03-12 15:54 | Outpatient (CLI) | payer MEDICARE, OTHER, SELFPAY ==
--- NOTE | 2020-03-12 | DI.MG.S_ITS ---
BILATERAL DIGITAL SCREENING MAMMOGRAM 3D/2D WITH CAD: 03/12/2020 CLINICAL: Routine screening. Comparison is made to exams dated: 03/07/2019 mammogram, 01/31/2018 mammogram, and 07/22/2016 mammogram - [facility]. There are scattered fibroglandular elements in both breasts. Current study was also evaluated with a Computer Aided Detection (CAD) system. No significant masses, calcifications, or other findings are seen in either breast. There has been no significant interval change. IMPRESSION: NEGATIVE There is no mammographic evidence of malignancy. A 1 year screening mammogram is recommended. This exam was interpreted at Station ID: [id number]. NOTE: For mammograms, a report in lay terms will be sent to the patient. Approximately 15% of breast malignancies will not be visualized mammographically. In the management of a palpable breast mass, a negative mammogram must not discourage biopsy of a clinically suspicious lesion. Electronically Signed By: Imer talbert/mamie:03/13/2020 09:53:35 letter sent: Normal Exam ACR BI-RADS Category 1: Negative [id number]
== END ==
PROVIDERS: PCP Internal Medicine; Referring Provider Internal Medicine; Visit Provider Internal Medicine
DX: Z12.31 Encounter for screening mammogram for malignant neoplasm of breast (principal)
CPT/HCPCS: 77063; 77067

== ENCOUNTER → 2020-06-05 18:38 | Outpatient (ROUT) | payer MEDICARE, OTHER, SELFPAY | PROVIDERS: PCP Internal Medicine; Visit Provider Internal Medicine | DX: N39.0 Urinary tract infection, site not specified (principal) | CPT/HCPCS: 87086 ==

== ENCOUNTER → 2020-06-12 14:41 | Outpatient (CLI) | payer MEDICARE, OTHER, SELFPAY ==
[2020-06-12 14:50] LABS: Bacteria Urine None Seen
[2020-06-12 16:04] LABS: Appearance Urine UA CLEAR; Bilirubin Urine UA NEGATIVE (NEGATIVE); Color Urine UA YELLOW; Glucose Urine UA NEGATIVE (Negative); Ketones Urine UA NEGATIVE (NEGATIVE); Leukocyte Esterase Urine UA TRACE (NEGATIVE); Nitrite Urine UA NEGATIVE (Negative); Occult Blood Urine UA NEGATIVE (Negative); Protein Urine UA NEGATIVE (Negative); Urobilinogen Urine UA 0.2 E.U./dL (0.2)
[2020-06-12 16:17] LABS: pH Urine UA 5.5 (4.5-8.0)
[2020-06-12 16:18] LABS: Culture Indicated Urine Specimen Cultured; RBC Urine 0-1/HPF (0-5/HPF); Squamous Epithelial Cell Urine 0-1 /HPF (0-5/HPF); WBC Urine 0-1/HPF (0-5/HPF)
== END ==
PROVIDERS: PCP Internal Medicine; Referring Provider Internal Medicine; Visit Provider Internal Medicine
DX: R82.90 Unspecified abnormal findings in urine (principal)
CPT/HCPCS: 81001; 87086

== ENCOUNTER 2020-07-27 13:28 | Emergency (ER) | payer MEDICARE, OTHER, SELFPAY ==
[2020-07-27] VITALS (11 sets, daily range): BP systolic 126–169; BP diastolic 60–78; PULSE 62–113; RESP 13–22; TEMP 36.6; O2SAT 95–97; BMI 28.5
--- NOTE | 2020-07-27 13:42 | DI.RAD.S_ITS ---
PROCEDURE: XR CHEST 1V INDICATIONS: chest pain TECHNIQUE: One view of the chest was acquired. COMPARISON: [facility], CR, XR CHEST 1V, 05/28/2019, 9:21. FINDINGS: Surgical changes and devices: Overlying EKG wires.. Lungs and pleura: Lungs are clear. No pleural effusions or pneumothorax. Mediastinum: Mediastinal contours appear normal. Heart size is normal. Bones and chest wall: No suspicious bony lesions. Overlying soft tissues appear unremarkable. IMPRESSION: No evidence of an acute cardiopulmonary abnormality. Dictated by: on 07/27/2020 at 13:29 Approved by: on 07/27/2020 at 13:34
[2020-07-27 14:20] LABS: INR 1.4 (0.9-1.3); Prothrombin Time 15.5 SECONDS (10.1-12.7)
[2020-07-27 14:22] LABS: PTT Partial Thromboplastin Tim 43 SECONDS (26.4-36.2)
[2020-07-27 14:24] LABS: Alanine Aminotransferase 28 IU/L (<35); Albumin 4.4 g/dL (3.5-5.0); Albumin Globulin Ratio 1.6 (1.0-2.8); Alkaline Phosphatase 97 U/L (38-126); Aspartate Aminotransferase 29 IU/L (14-36); Bilirubin Total 0.4 mg/dL (0.2-1.3); Blood Urea Nitrogen 19 mg/dL (7-17); Calcium 9.8 mg/dL (8.4-10.2); Carbon Dioxide 24 mmol/L (22-32); Chloride 108 mmol/L (98-107); Creatine Kinase 90 U/L (30-135); Estimated Glomerular Filt Rate > 60.0 mL/min (>60); Globulin 2.8 g/dL (1.7-4.1); Glucose 95 mg/dL (80-110); HEMOLYSIS < 15 (0-50); Lipase 102 U/L (23-300); Potassium 4.4 mmol/L (3.4-5.1); Sodium 138 mmol/L (137-145); Total Protein 7.2 g/dL (6.3-8.2)
[2020-07-27 14:29] LABS: Add Manual Diff / Slide Review NO; Basophils Absolute Auto 100 /uL (0-100); Basophils Percent Auto 0.7 % (0-2); Eosinophils Absolute Auto 100 /uL (0-450); Eosinophils Percent Auto 1.3 % (2-4); Hematocrit 39.8 % (36-46); Hemoglobin 13.2 g/dL (12.0-16.0); Lymphocytes Absolute Auto 1800 /uL (1100-4500); Lymphocytes Percent Auto 24.2 % (25-40); Mean Corpuscular HGB Conc 33.2 % (30-36); Mean Corpuscular Hemoglobin 30.8 PG (26-34); Mean Corpuscular Volume 92.6 fL (80-100); Monocytes Absolute Auto 700 /uL (0-900); Monocytes Percent Auto 9.3 % (3-14); Neutrophils Absolute Auto 4800 /uL (1500-7000); Neutrophils Percent Auto 64.5 % (50-75); Platelet Count 206 X10^3/uL (150-400); Red Cell Distribution Width 13.4 % (11.6-14.8); White Blood Cell Count 7.5 X10^3/uL (4.5-11.0)
[2020-07-27 14:35] LABS: Troponin I < 0.012 ng/mL (0.01-0.034)
--- NOTE | 2020-07-27 14:40 | ED_ITS ---
HPI - Arrhythmia/Palpitations General Chief Complaint: Arrhythmia/Palpitations Stated Complaint: AFIB Time Seen by Provider: 07/27/20 14:40 Source: patient Mode of arrival: Ambulatory Limitations: no limitations History of Present Illness HPI narrative: This is a 70-year-old female comes emergency department with co mplaint of atrial fibrillation. Patient states she has a sensation that she is having palpitations. She does not states as extremis her past episodes. She has been feeling for the past 4 days. She has felt intermittently sweaty and fatigued. She has occasionally felt a little short of breath with exertion. She denies any chest pain or pressure. She has noted some mild swelling in her lower extremities. She has felt lightheaded but not had any syncope. She denies any nausea or vomiting. No GI or urinary symptoms. No melena or hematochezia. She has noted that she has been slowly decreasing her lamotrigine and quetiapine but has not had any changes to her cardiac medications. She has known atrial flutter/fib and is on Eliquis daily. Patient also takes location for atrial fibrillation, hypertension and dyslipidemia as well as daily magnesium supplementation. Patient states she has not had any other major changes other than a large meal that she thinks may have initially caused her to back to her arrhythmia. Dr. Alvarenga is her PCP and Dr. Riggins is her lithograph press operator tinware. Related Data Home Medications Medication Instructions Recorded Confirmed coenzyme Q10 [Co Q-10] 200 mg PO QDAY #0 12/25/15 07/27/20 lutein 20 mg PO DAILY #0 12/25/15 07/27/20 vitamin E 450 mg PO QDAY #0 05/13/17 07/27/20 aspirin 81 mg PO QDAY #0 05/19/17 07/27/20 magnesium 200 mg tablet 400 mg PO DAILY tab 06/01/18 07/27/20 cholecalciferol (vitamin D3) 1,000 unit PO DAILY 05/28/19 07/27/20 [Vitamin D3] quetiapine [Seroquel] 300 mg PO HS 07/27/20 07/27/20 Previous Rx's Medication Instructions Recorded apixaban 5 mg tablet 5 mg PO BID #180 tab 04/14/19 atorvastatin 80 mg tablet 80 mg PO HS #90 tab 04/14/19 lamotrigine 150 mg tablet 150 mg PO QDAY #90 tab 04/14/19 diltiazem HCl [Cardizem CD] 240 mg PO DAILY #15 cap 05/28/19 metoprolol succinate 25 mg PO DAILY #15 tab 05/28/19 furosemide [Lasix] 20 mg PO DAILY #3 tab 07/27/20 Allergies Allergy/AdvReac Type Severity Reaction Status Date / Time No Known Drug Allergies Allergy Verified 07/27/20 13:49 Review of Systems Review of Systems ROS Unobtainable: All systems reviewed & are unremarkable except as noted in HPI and below Patient History Medical History (Updated 07/27/20 @ 16:48 by Dayanara Artis DO) AF (paroxysmal atrial fibrillation) Anxiety Bipolar disorder Coronary artery disease Depression Family history of colon cancer in father Hyperlipemia Hypertension Low back pain (~07/2016) Myocardial infarction (~04/2016) Surgical History History of colonoscopy History of knee replacement Family History Father Cancer Heart disease Mother Mental health problem Stroke Social History marital status: household members: spouse Smoking Status: Never smoker alcohol intake: current Smoking Status: Never smoker alcohol intake frequency: a few times a month Substance Use Type: marijuana Exam Narrative Exam Narrative: GENERAL: Alert and oriented x three, well-nourished female in mild distress HEENT: Head normocephalic, atraumatic, EOMI, pupils reactive, face symmetric, moist mucous membranes NECK: Supple, full range of motion CARDIOVASCULAR: Irregularly irregular rate and rhythm without murmurs, rubs or gallops. No JVD. Mild edema bilateral ankles. RESPIRATORY: Breath sounds equal bilaterally, no wheezes rales or rhonchi. ABDOMEN: Soft, nontender. Normoactive bowel sounds all 4 quadrants. No guarding or rebound, rigidity, no mass : No CVA tenderness EXTREMITIES: Normal range of motion. Neurovascularly intact NEUROLOGICAL: Cranial nerves II through XII grossly intact. Moving all extremities SKIN: Warm, dry, no petechiae, no rashes or lesions. Initial Vital Signs Initial Vital Signs: Vital Signs Temperature 97.8 F 07/27/20 13:46 Pulse Rate 113 H 07/27/20 13:46 Respiratory Rate 18 07/27/20 13:46 Blood Pressure 133/78 07/27/20 13:46 Pulse Oximetry 95 07/27/20 13:46 Course Orders Ordered: ED Orders 07/27/20 13:42 XR chest 1V Stat EKG-12 Lead Stat 07/27/20 13:50 Complete Blood Count AUTO DIFF Stat Comprehensive Metabolic Panel Stat Lipase Stat Magnesium Stat NT-proBNP (BNP-Adult 18+) Stat Partial Thromboplastin Time Stat Prothrombin Time INR Stat Troponin & CK Cardiac Panel Stat 07/27/20 15:45 Troponin I Stat 07/27/20 16:03 EKG-12 Lead Stat Discontinued Medications Furosemide (Furosemide 40 Mg/4 Ml Vial) 40 mg IV NOW ONE Stop: 07/27/20 16:11 Last Admin: 07/27/20 16:20 Dose: 40 mg Documented by: LENO Vital Signs Vital signs: Vital Signs - 8 hr 07/27/20 13:46 07/27/20 13:59 07/27/20 14:00 Temperature 97.8 F Pulse Rate 113 H 92 H 93 H Respiratory Rate 18 22 22 Blood Pressure 133/78 Pulse Oximetry 95 97 97 07/27/20 14:30 07/27/20 15:00 07/27/20 15:16 Temperature Pulse Rate 80 67 72 Respiratory Rate 20 18 Blood Pressure 126/60 Pulse Oximetry 97 97 97 07/27/20 15:30 07/27/20 16:00 07/27/20 16:30 Temperature Pulse Rate 63 66 62 Respiratory Rate 15 13 15 Blood Pressure 129/62 149/65 H 137/73 Pulse Oximetry 96 97 97 07/27/20 17:00 07/27/20 17:01 Temperature Pulse Rate 63 64 Respiratory Rate 17 17 Blood Pressure 169/78 H Pulse Oximetry 97 97 MDM - Arrhythmia/Palpitations Lab Data Attestation: I reviewed the patient's lab results. Result diagrams: 07/27/20 13:50 07/27/20 13:50 Labs: Lab Results 07/27/20 07/27/20 07/27/20 Range/Units 13:50 13:50 13:50 WBC 7.5 (4.5-11.0) X10^3/uL RBC 4.30 (4.0-5.2) X10^6/uL Hgb 13.2 (12.0-16.0) g/dL Hct 39.8 (36-46) % MCV 92.6 (80-100) fL MCH 30.8 (26-34) PG MCHC 33.2 (30-36) % RDW 13.4 (11.6-14.8) % Plt Count 206 (150-400) X10^3/uL Neut % (Auto) 64.5 (50-75) % Lymph % (Auto) 24.2 L (25-40) % Calhoun % (Auto) 9.3 (3-14) % Eos % (Auto) 1.3 L (2-4) % Baso % (Auto) 0.7 (0-2) % Neut # (Auto) 4800 (9249-4752) /uL Lymph # (Auto) 1800 (3895-6361) /uL Calhoun # (Auto) 700 (0-900) /uL Eos # (Auto) 100 (0-450) /uL Baso # (Auto) 100 (0-100) /uL PT 15.5 H (10.1-12.7) SECONDS INR 1.4 H (0.9-1.3) APTT 43 H (26.4-36.2) SECONDS Sodium 138 (137-145) mmol/L Potassium 4.4 (3.4-5.1) mmol/L Chloride 108 H (98-107) mmol/L Carbon Dioxide 24 (22-32) mmol/L BUN 19 H (7-17) mg/dL Creatinine 0.73 (0.52-1.04) mg/dL Estimated GFR > 60.0 (>60) mL/min BUN/Creatinine Ratio 26.0 H (6-22) Glucose 95 (80-110) mg/dL Calcium 9.8 (8.4-10.2) mg/dL Magnesium (1.6-2.3) mg/dL Total Bilirubin 0.4 (0.2-1.3) mg/dL AST 29 (14-36) IU/L ALT 28 (<35) IU/L Alkaline Phosphatase 97 (38-126) U/L Total Creatine Kinase 90 (30-135) U/L CK-MB (CK-2) TNP CK-MB (CK-2) Rel Index TNP Troponin I < 0.012 (0.01-0.034) ng/mL NT-Pro-B Natriuret Pep (<125) pg/mL Total Protein 7.2 (6.3-8.2) g/dL Albumin 4.4 (3.5-5.0) g/dL Globulin 2.8 (1.7-4.1) g/dL Albumin/Globulin Ratio 1.6 (1.0-2.8) Lipase 102 (23-300) U/L 07/27/20 07/27/20 07/27/20 Range/Units 13:50 13:50 15:45 WBC (4.5-11.0) X10^3/uL RBC (4.0-5.2) X10^6/uL Hgb (12.0-16.0) g/dL Hct (36-46) % MCV (80-100) fL MCH (26-34) PG MCHC (30-36) % RDW (11.6-14.8) % Plt Count (150-400) X10^3/uL Neut % (Auto) (50-75) % Lymph % (Auto) (25-40) % Calhoun % (Auto) (3-14) % Eos % (Auto) (2-4) % Baso % (Auto) (0-2) % Neut # (Auto) (6627-8119) /uL Lymph # (Auto) (4502-4838) /uL Calhoun # (Auto) (0-900) /uL Eos # (Auto) (0-450) /uL Baso # (Auto) (0-100) /uL PT (10.1-12.7) SECONDS INR (0.9-1.3) APTT (26.4-36.2) SECONDS Sodium (137-145) mmol/L Potassium (3.4-5.1) mmol/L Chloride (98-107) mmol/L Carbon Dioxide (22-32) mmol/L BUN (7-17) mg/dL Creatinine (0.52-1.04) mg/dL Estimated GFR (>60) mL/min BUN/Creatinine Ratio (6-22) Glucose (80-110) mg/dL Calcium (8.4-10.2) mg/dL Magnesium 2.3 (1.6-2.3) mg/dL Total Bilirubin (0.2-1.3) mg/dL AST (14-36) IU/L ALT (<35) IU/L Alkaline Phosphatase (38-126) U/L Total Creatine Kinase (30-135) U/L CK-MB (CK-2) CK-MB (CK-2) Rel Index Troponin I < 0.012 (0.01-0.034) ng/mL NT-Pro-B Natriuret Pep 763 H (<125) pg/mL Total Protein (6.3-8.2) g/dL Albumin (3.5-5.0) g/dL Globulin (1.7-4.1) g/dL Albumin/Globulin Ratio (1.0-2.8) Lipase (23-300) U/L Imaging Data Chest x-ray: Radiologist's Impresson: [address] [id number] ReportSigned Patient: Dulce Parks LMR#: [id number]: [id number]:[id number]/Sex: 70 / FDate of Service: 07/27/20Loc: EDAccession Number: [id number] Procedure: XR chest 1V Ordering Provider: Dayanara Artis D.O. PROCEDURE: XR CHEST 1V INDICATIONS: chest pain TECHNIQUE: One view of the chest was acquired. COMPARISON: [facility], , XR CHEST 1V, 05/28/2019, 9:21. FINDINGS: Surgical changes and devices: Overlying EKG wires.. Lungs and pleura: Lungs are clear. No pleural effusions or pneumothorax. Mediastinum: Mediastinal contours appear normal. Heart size is normal. Bones and chest wall: No suspicious bony lesions. Overlying soft tissues appear unremarkable. IMPRESSION: No evidence of an acute cardiopulmonary abnormality. Dictated by: on 07/27/2020 at 13:29 Approved by: on 07/27/2020 at 13:34 ECG Data Attestation: I personally reviewed and interpreted this ECG as follows: Prior ECG tracings: available for review Interpretation: AFib, rate 92 QRS is 76 and QTC of 447. No ST elevation or depression noted. EKG 2. Shows atrial fibrillation with a rate of 64 QRS is 78 QTC of 429. No acute ST changes appreciated. MDM Narrative Medical decision making narrative: This is a 70-year-old female comes in with complaint of palpitations. Patient is in atrial fibrillation she has been ranging typically from 60-90 with occasional up takes into the 110s. Patient has been consistently in the 80s to 70s here in the department. Patient's EKG does not show any acute ST changes. Her labs do not show any major abnormalities. Patient's potassium is optimized at 4.4, she does have a mildly elevated BUN. Magnesium is normal range and BNP show elevation. Patient does not have any changes on chest x-ray consistent with pulmonary edema. Plan for short course of Lasix. Patient is fully anticoagulated and I would not cardiovert her at this time as she is rate controlled. We did discuss if she has any worsening symptoms to please return and to call her lithograph press operator tinware on Wednesday for close follow-up. On recheck patient was ambulating back from the restroom without any tachypnea, hypoxia or other concerning exam findings. Patient expresses her understanding and feels comfortable with this plan. Discharge Plan Departure Patient Disposition: Home Clinical Impression: Atrial fibrillation, Heart palpitations, Elevated brain natriuretic peptide (BNP) level Instructions: DI for Arrhythmias Activity Restrictions/Additional Instructions: Follow up with your physician this week for recheck. Take lasix once daily until gone. I would recommend taking it in the morning. Continue your home medications as prescribed. Please return for new or worsening symptoms, fevers, lightheadedness or passing out, new chest pain, shortness of breath, worsening swelling of her extremities, persistently fast heart rate or other new or concerning symptoms. Prescriptions: New furosemide [Lasix] 20 mg tablet 20 mg PO DAILY Qty: 3 RF: 0 No Action coenzyme Q10 [Co Q-10] 100 MG capsule 200 mg PO QDAY Qty: 0 RF: 0 lutein 20 MG tablet 20 mg PO DAILY Qty: 0 RF: 0 vitamin E 400 unit Capsule 450 mg PO QDAY Qty: 0 RF: 0 aspirin 81 MG tablet,chewable 81 mg PO QDAY Qty: 0 RF: 0 Eliquis 5 mg tablet 5 mg PO BID Qty: 180 RF: 0 atorvastatin 80 mg tablet 80 mg PO HS Qty: 90 RF: 1 lamotrigine 150 mg tablet 150 mg PO QDAY Qty: 90 RF: 1 magnesium 200 mg tablet 400 mg PO DAILY RF: 0 diltiazem HCl [Cardizem CD] 240 mg capsule,extended release 24hr 240 mg PO DAILY Qty: 15 RF: 1 metoprolol succinate 25 mg tablet extended release 24 hr 25 mg PO DAILY Qty: 15 RF: 1 quetiapine [Seroquel] 200 mg tablet 300 mg PO HS RF: 0 cholecalciferol (vitamin D3) [Vitamin D3] 25 mcg (1,000 unit) Capsule 1,000 unit PO DAILY RF: 0 Referrals: Nicole Davey MD [Primary Care Provider] -
[2020-07-27 15:26] LABS: Magnesium 2.3 mg/dL (1.6-2.3)
[2020-07-27 15:37] LABS: NT-proBNP (BNP-Adult 18+) 763 pg/mL (<125)
[2020-07-27] MEDS: FUROSEMIDE 40 MG/4 ML VIAL IV (16:20)
[2020-07-27 16:36] LABS: Troponin I < 0.012 ng/mL (0.01-0.034)
== END 2020-07-27 17:09 | disposition home or self-care (01) ==
PROVIDERS: Emergency Provider Emergency Medicine; PCP Internal Medicine
DX: I48.91 Unspecified atrial fibrillation (principal); R00.2 Palpitations; R79.89 Other specified abnormal findings of blood chemistry; Z79.01 Long term (current) use of anticoagulants
CPT/HCPCS: 36415; 71045; 80053; 82550; 83690; 83735; 83880; 84484; 85025; 85610; 85730; 93005; 93010; 96374; 99284; J1940

== ENCOUNTER → 2021-03-11 11:30 | Outpatient (CLI) | payer MEDICARE, OTHER, SELFPAY ==
--- NOTE | 2021-03-11 11:33 | DI.RAD.S_ITS ---
PROCEDURE: XR DEXA AXIAL SKELETON INDICATIONS: Asymptomatic menopausal state COMPARISON: None. FINDINGS: This blank DEXA report has been sent in error by the PACS system. The correct and complete report will be forthcoming in 1-2 days. Thank you for your patience and understanding. Dictated by: Shalonda Chavez MD, PhD on 03/11/2021 at 13:19 Approved by: Shalonda Chavez MD, PhD on 03/11/2021 at 13:19
== END ==
PROVIDERS: PCP Internal Medicine; Referring Provider Internal Medicine; Visit Provider Internal Medicine
DX: M85.851 Other specified disorders of bone density and structure, right thigh (principal); Z78.0 Asymptomatic menopausal state
CPT/HCPCS: 77080

== ENCOUNTER → 2021-04-01 11:30 | Outpatient (CLI) | payer MEDICARE, OTHER, SELFPAY ==
--- NOTE | 2021-04-01 11:32 | DI.MG.S_ITS ---
BILATERAL DIGITAL SCREENING MAMMOGRAM 3D/2D WITH CAD: 04/01/2021 CLINICAL: Routine screening. Comparison is made to exams dated: 03/12/2020 mammogram, 03/07/2019 mammogram, and 01/31/2018 mammogram - [facility]. There are scattered fibroglandular elements in both breasts. Current study was also evaluated with a Computer Aided Detection (CAD) system. No significant masses, calcifications, or other findings are seen in either breast. There has been no significant interval change. IMPRESSION: NEGATIVE There is no mammographic evidence of malignancy. A 1 year screening mammogram is recommended. This exam was interpreted at Station ID: [id number]. NOTE: For mammograms, a report in lay terms will be sent to the patient. Approximately 15% of breast malignancies will not be visualized mammographically. In the management of a palpable breast mass, a negative mammogram must not discourage biopsy of a clinically suspicious lesion. Electronically Signed By: Imer talbert/mamie:04/01/2021 12:37:21 letter sent: Normal Exam ACR BI-RADS Category 1: Negative 3341F
== END ==
PROVIDERS: PCP Internal Medicine; Referring Provider Internal Medicine; Visit Provider Internal Medicine
DX: Z12.31 Encounter for screening mammogram for malignant neoplasm of breast (principal)
CPT/HCPCS: 77063; 77067

== ENCOUNTER 2021-05-12 22:40 | Emergency (ER) | payer MEDICARE, OTHER, SELFPAY ==
[2021-05-12 22:57] VITALS: BP 139/60; PULSE 72; RESP 16; TEMP 36.7; O2SAT 95; BMI 29.6
--- NOTE | 2021-05-12 23:42 | PC.NURSE ---
With order from provider, placed surgicel on surgical site, site with slow bleed. placed roll of gauze and tegaderm to hold gauze in place
--- NOTE | 2021-05-13 01:08 | ED.RECABL ---
HPI - Recheck/Abnormal Lab/Rx General Chief Complaint: Recheck/Abnormal Lab/Rx Stated Complaint: ablaztion surgery today, bleeding at incision Time Seen by Provider: 05/13/21 00:41 Source: patient Mode of arrival: Ambulatory History of Present Illness HPI narrative: 70-year-old female nonsmoker with history of AFib on Eliquis had an ablation earlier today and presents with a chief complaint of a small amount of painless bleeding from the procedural site in her right groin. She denies any pain. She is not dizzy nor weak or lightheaded. She denies any fever or chills. She continue taking her Eliquis throughout and leading up to the procedure. Related Data Home Medications Medication Instructions Recorded Confirmed coenzyme Q10 100 mg capsule (Co 200 mg PO QDAY #0 12/25/15 07/27/20 Q-10) lutein 20 mg tablet 20 mg PO DAILY #0 12/25/15 07/27/20 vitamin E 400 unit capsule 450 mg PO QDAY #0 05/13/17 07/27/20 aspirin 81 mg chewable tablet 81 mg PO QDAY #0 05/19/17 07/27/20 magnesium 200 mg tablet 400 mg PO DAILY tab 06/01/18 07/27/20 cholecalciferol (vitamin D3) 25 1,000 unit PO DAILY 05/28/19 07/27/20 mcg (1,000 unit) capsule (Vitamin D3) quetiapine 200 mg tablet (Seroquel) 300 mg PO HS 07/27/20 07/27/20 Previous Rx's Medication Instructions Recorded apixaban 5 mg tablet (Eliquis) 5 mg PO BID #180 tab 04/14/19 atorvastatin 80 mg tablet 80 mg PO HS #90 tab 04/14/19 lamotrigine 150 mg tablet 150 mg PO QDAY #90 tab 04/14/19 diltiazem HCl 240 mg 240 mg PO DAILY #15 cap 05/28/19 capsule,extended release 24 hr (Cardizem CD) metoprolol succinate 25 mg 25 mg PO DAILY #15 tab 05/28/19 tablet,extended release 24 hr furosemide 20 mg tablet (Lasix) 20 mg PO DAILY #3 tab 07/27/20 Allergies Allergy/AdvReac Type Severity Reaction Status Date / Time No Known Drug Allergies Allergy Verified 07/27/20 13:49 Review of Systems Review of Systems Narrative: GENERAL: Denies chills, fatigue, malaise, fever, sweats. HEENT: Denies sinus pain, ear pain, sore throat, difficulty swallowing, dizziness. RESPIRATORY: Denies dyspnea, cough, wheezing, hemoptysis, sputum. CARDIOVASCULAR: Denies chest pain, palpitations, orthopnea, edema, GASTROINTESTINAL: Denies nausea, vomiting, abdominal pain, diarrhea, constipation, melena. : Denies dysuria, frequency, incontinence, hematuria, urinary retention. MUSCULOSKELETAL: denies weakness, joint pain, or bony pain SKIN: See HPI NEUROLOGIC: Denies weakness, headache, numbness, change in speech, confusion, seizures, incoordination. PSYCHIATRIC: No concerning psychosocial issues. 12 point review of systems is negative except for those stated above Patient History Medical History AF (paroxysmal atrial fibrillation) Anxiety Bipolar disorder Coronary artery disease Depression Family history of colon cancer in father Hyperlipemia Hypertension Low back pain (~07/2016) Myocardial infarction (~04/2016) Surgical History History of colonoscopy History of knee replacement Family History Father Cancer Heart disease Mother Mental health problem Stroke Social History marital status: household members: spouse Smoking Status: Never smoker alcohol intake: current Smoking Status: Never smoker alcohol intake frequency: a few times a month Substance Use Type: marijuana Exam Narrative Exam Narrative: GEN: AOx3 and in mild distress EYES: Pupils are equal, round, and reactive to light and accommodation. Extraoccular muscles are intact bilaterally. There is no subconjunctival hemorrhage or exudate. CHEST: Lungs are clear to auscultation bilaterally and free of wheezes, rales, or rhonchi. Heart rate is regular rhythm, there are no murmurs, clicks, rubs, or gallops. There is no chest wall tenderness. ABD: Abdomen is soft and nontender. There is no guarding or rebound. Bowel sounds are normal in all 4 quadrants. There is no mass or organomegaly. EXT: Full painless ROM of all extremities with no loss of sensation or strength. SKIN: Small puncture site and right groin with a very slow trickle bleed, palpable pulses underlying, no pulsatile mass, no hematoma or pain. Bleeding easily controlled with pressure Initial Vital Signs Initial Vital Signs: Vital Signs Temperature 98.1 F 05/12/21 22:57 Pulse Rate 72 05/12/21 22:57 Respiratory Rate 16 05/12/21 22:57 Blood Pressure 139/60 05/12/21 22:57 Pulse Oximetry 95 05/12/21 22:57 Course Reevaluation(s) Reevaluation #1: Re-evaluated after some time with pressure and hemostatic gauze in place. No expanding hematoma, pain Vital Signs Vital signs: Vital Signs - 8 hr 05/12/21 22:57 Temperature 98.1 F Pulse Rate 72 Respiratory Rate 16 Blood Pressure 139/60 Pulse Oximetry 95 MDM - Recheck/Abnormal Lab/Rx MDM Narrative Medical decision making narrative: Patient with bleeding at procedure site after ablation today. No evidence of expanding hematoma, high risk bleeding. Bleeding controlled with pressure and hemostatic gauze. Patient given return precautions and questions answered to her apparent satisfaction Discharge Plan Departure Patient Disposition: Home Clinical Impression: Hemorrhage complicating a procedure Activity Restrictions/Additional Instructions: *You have been diagnosed with [postprocedure bleeding, your history and physical exam are very reassuring *What to do: *Please continue to take your regular medications as directed. [ ] New medication prescriptions sent to your pharmacy: [ ] [ ] New medication written as a paper prescription [ x] No new medications given *Please follow up with your primary care provider in 2-3 days, call for an appointment. Let them know you were seen in the Emergency Department and that we ask that you be seen in follow up. We will electronically transmit a record of today's note if your PCP is in our system *If you do not have a primary care provider please contact the [facility] Resource line at [phone]. They will ask some questions about your medical history and help get you set up with a doctor in the community. *Return to Emergency Department if you should have any new, worsening or concerning symptoms, such as [fever greater than 101 F, shaking chills, worsening bleeding, expanding hematoma (bruise), pulsatile bleeding, other bothersome symptoms Prescriptions: No Action coenzyme Q10 [Co Q-10] 100 MG capsule 200 mg PO QDAY Qty: 0 0RF lutein 20 MG tablet 20 mg PO DAILY Qty: 0 0RF vitamin E 400 unit Capsule 450 mg PO QDAY Qty: 0 0RF aspirin 81 MG tablet,chewable 81 mg PO QDAY Qty: 0 0RF Eliquis 5 mg tablet 5 mg PO BID Qty: 180 0RF atorvastatin 80 mg tablet 80 mg PO HS Qty: 90 1RF lamotrigine 150 mg tablet 150 mg PO QDAY Qty: 90 1RF magnesium 200 mg tablet 400 mg PO DAILY 0RF diltiazem HCl [Cardizem CD] 240 mg capsule,extended release 24hr 240 mg PO DAILY Qty: 15 1RF metoprolol succinate 25 mg tablet extended release 24 hr 25 mg PO DAILY Qty: 15 1RF quetiapine [Seroquel] 200 mg tablet 300 mg PO HS 0RF furosemide [Lasix] 20 mg tablet 20 mg PO DAILY Qty: 3 0RF cholecalciferol (vitamin D3) [Vitamin D3] 25 mcg (1,000 unit) Capsule 1,000 unit PO DAILY 0RF Referrals: Nicole Davey MD [Primary Care Provider] -
[2021-05-13 01:40] VITALS: BP 159/75; PULSE 72; RESP 17; O2SAT 97
== END 2021-05-13 01:43 | disposition home or self-care (01) ==
PROVIDERS: Emergency Provider Emergency Medicine; PCP Internal Medicine
DX: L76.22 Postprocedural hemorrhage of skin and subcutaneous tissue following other procedure (principal); Z79.01 Long term (current) use of anticoagulants
CPT/HCPCS: 99281

== ENCOUNTER → 2022-06-02 15:42 | Outpatient (CLI) | payer MEDICARE, OTHER, SELFPAY ==
--- NOTE | 2022-06-02 | DI.MG.S_ITS ---
BILATERAL DIGITAL SCREENING MAMMOGRAM 3D/2D WITH CAD: 06/02/2022 CLINICAL: Routine screening. Comparison is made to exams dated: 04/01/2021 mammogram, 03/12/2020 mammogram, and 03/07/2019 mammogram - [facility]. There are scattered areas of fibroglandular density in both breasts (category b / 25%-50% glandular tissue). Current study was also evaluated with a Computer Aided Detection (CAD) system. There is a possible new 0.4 cm oval equal density asymmetry in the right breast middle depth central to the nipple seen on the craniocaudal view only. No other significant masses, calcifications, or other findings are seen in either breast. IMPRESSION: INCOMPLETE: NEEDS ADDITIONAL IMAGING EVALUATION The possible new 0.4 cm oval equal density asymmetry in the right breast is indeterminate. Additional views with possible ultrasound are recommended. Based on the Tyrer Cuzick model (a risk assessment model) the patient's lifetime risk is 6.6% and her 10 year risk is 4.6%. According to the ACR, ACS, and NCCN guidelines, an annual breast MRI exam along with mammogram is recommended if the patient's lifetime risk is 20% or greater. This exam was interpreted at Station ID: [id number]. NOTE: For mammograms, a report in lay terms will be sent to the patient. Approximately 15% of breast malignancies will not be visualized mammographically. In the management of a palpable breast mass, a negative mammogram must not discourage biopsy of a clinically suspicious lesion. Electronically Signed By: Mitch ellis/mamie:06/03/2022 07:41:13 letter sent: Additional Imaging Needed ACR BI-RADS Category 0: Incomplete 3340F
== END ==
PROVIDERS: PCP Internal Medicine; Referring Provider Internal Medicine; Visit Provider Internal Medicine
DX: Z12.31 Encounter for screening mammogram for malignant neoplasm of breast (principal)
CPT/HCPCS: 77063; 77067

== ENCOUNTER → 2022-06-24 09:31 | Outpatient (CLI) | payer MEDICARE, OTHER, SELFPAY ==
--- NOTE | 2022-06-24 | DI.MG.S_ITS ---
UNILATERAL RIGHT DIGITAL DIAGNOSTIC MAMMOGRAM 3D/2D WITH ADDITIONAL VIEWS: 06/24/2022 CLINICAL: Additional evaluation requested from prior study. Comparison is made to exams dated: 06/02/2022 mammogram, 04/01/2021 mammogram, and 03/12/2020 mammogram - [facility]. There are scattered areas of fibroglandular density in the right breast (category b / 25%-50% glandular tissue). The 0.4 cm oval equal density asymmetry seen on the screening mammogram resolves with compression. No other significant masses or calcifications are seen in the breast. IMPRESSION: BENIGN There is no mammographic evidence of malignancy. Return to annual mammogram screening schedule is recommended. Based on the Tyrer Cuzick model (a risk assessment model) the patient's lifetime risk is 6.6% and her 10 year risk is 4.6%. According to the ACR, ACS, and NCCN guidelines, an annual breast MRI exam along with mammogram is recommended if the patient's lifetime risk is 20% or greater. This exam was interpreted at Station ID: [id number]. NOTE: For mammograms, a report in lay terms will be sent to the patient. Approximately 15% of breast malignancies will not be visualized mammographically. In the management of a palpable breast mass, a negative mammogram must not discourage biopsy of a clinically suspicious lesion. Electronically Signed By: Sudheer Miller M.D. acr/:06/24/2022 10:10:46 letter sent: Normal Exam ACR BI-RADS Category 2: Benign Finding(s) 3342F
== END ==
PROVIDERS: PCP Internal Medicine; Referring Provider Internal Medicine; Visit Provider Internal Medicine
DX: R92.8 Other abnormal and inconclusive findings on diagnostic imaging of breast (principal)
CPT/HCPCS: 77065; G0279

== ENCOUNTER → 2022-09-10 11:19 | Outpatient (CLI) | payer MEDICARE, OTHER, SELFPAY ==
--- NOTE | 2022-09-10 | DI.RAD.S_ITS ---
PROCEDURE: XR HIP W PEL IF DONE LT 2V INDICATIONS: Strain of muscle, fascia and tendon of left hip, initial enc TECHNIQUE: AP pelvis with lateral view(s) of the left hip(s). COMPARISON: None. FINDINGS: Bones: No fractures or dislocations. Pelvic ring appears intact. No suspicious bony lesions. Moderate left hip degenerative arthritis. Soft tissues: The visualized bowel gas pattern is normal. No suspicious soft tissue calcifications. IMPRESSION: Moderate left hip degenerative change. No evidence acute bony abnormality. If clinical suspicion and/or symptoms persist, further assessment with repeat plain films, or advanced imaging (e.g., CT, MRI, or bone scan) may be helpful for further assessment. Dictated by: Luis Poe M.D. on 09/10/2022 at 16:20 Approved by: Luis Poe M.D. on 09/10/2022 at 16:21
== END ==
PROVIDERS: PCP Internal Medicine; Referring Provider Internal Medicine; Visit Provider Internal Medicine
DX: S76.012A Strain of muscle, fascia and tendon of left hip, initial encounter (principal); M16.12 Unilateral primary osteoarthritis, left hip
CPT/HCPCS: 73502

== ENCOUNTER 2022-11-06 11:35 | Observation (INO) | payer MEDICARE, OTHER, SELFPAY ==
[2022-11-06] VITALS (16 sets, daily range): BP systolic 141–213; BP diastolic 56–92; PULSE 60–68; RESP 14–35; TEMP 36.2–37; O2SAT 94–99; BMI 32.1
--- NOTE | 2022-11-06 12:19 | ED_ITS ---
HPI - Dizziness General Chief Complaint: Dizziness Stated Complaint: VERTIGO Time Seen by Provider: 11/06/22 12:12 Source: patient and family Mode of arrival: Wheelchair History of Present Illness HPI Narrative: 72-year-old female former smoker with history of atrial fibrillation on apixaban, hypertension and hyperlipidemia presents with her in the chief complaint of dizziness over the course of the day. She states she noticed it certainly this morning and does not think she had symptoms last night. She denies any trauma or head injury but does state that she had a manipulation by her chiropractor yesterday. She denies blurred vision or trouble with speech. She has no chest pain or shortness of breath. She denies extremity numbness, tingling or weakness. She is had no recent upper respiratory symptoms and specifically denies runny nose, sore throat or cough. Having had peripheral vertigo in the past she took 2 doses of meclizine this morning Related Data Home Medications Medication Instructions Recorded Confirmed coenzyme Q10 100 mg capsule (Co 200 mg PO QDAY ##0 12/25/15 07/27/20 Q-10) lutein 20 mg tablet 20 mg PO DAILY ##0 12/25/15 07/27/20 vitamin E 268 mg (400 unit) capsule 450 mg PO QDAY ##0 05/13/17 07/27/20 aspirin 81 mg chewable tablet 81 mg PO QDAY ##0 05/19/17 07/27/20 magnesium 200 mg tablet 400 mg PO DAILY 06/01/18 07/27/20 cholecalciferol (vitamin D3) 25 1,000 unit PO DAILY 05/28/19 07/27/20 mcg (1,000 unit) capsule (Vitamin D3) quetiapine 200 mg tablet (Seroquel) 300 mg PO HS 07/27/20 07/27/20 Previous Rx's Medication Instructions Recorded apixaban 5 mg tablet (Eliquis) 5 mg PO BID #180 tabs 04/14/19 atorvastatin 80 mg tablet 80 mg PO HS #90 tabs 04/14/19 lamotrigine 150 mg tablet 150 mg PO QDAY #90 tabs 04/14/19 diltiazem HCl 240 mg 240 mg PO DAILY #15 caps 05/28/19 capsule,extended release 24 hr (Cardizem CD) metoprolol succinate 25 mg 25 mg PO DAILY #15 tabs 05/28/19 tablet,extended release 24 hr furosemide 20 mg tablet (Lasix) 20 mg PO DAILY #3 tabs 07/27/20 Allergies Allergy/AdvReac Type Severity Reaction Status Date / Time No Known Drug Allergies Allergy Verified 07/27/20 13:49 Review of Systems Review of Systems Narrative: GENERAL: Denies chills, fatigue, malaise, fever, sweats. HEENT: Denies sinus pain, ear pain, sore throat, difficulty swallowing, dizziness. RESPIRATORY: Denies dyspnea, cough, wheezing, hemoptysis, sputum. CARDIOVASCULAR: Denies chest pain, palpitations, orthopnea, edema, GASTROINTESTINAL: Denies nausea, vomiting, abdominal pain, diarrhea, constipation, melena. : Denies dysuria, frequency, incontinence, hematuria, urinary retention. MUSCULOSKELETAL: denies weakness, joint pain, or bony pain SKIN: Denies rash, skin lesions, or other NEUROLOGIC: See HPI PSYCHIATRIC: No concerning psychosocial issues. 12 point review of systems is negative except for those stated above Patient History Medical History (Updated 05/28/21 @ 00:00 by ) AF (paroxysmal atrial fibrillation) Anxiety Bipolar disorder Coronary artery disease Depression Family history of colon cancer in father Hyperlipemia Hypertension Low back pain (~07/2016) Myocardial infarction (~04/2016) Surgical History History of colonoscopy History of knee replacement Family History Father Cancer Heart disease Mother Mental health problem Stroke Social History marital status: household members: spouse Smoking Status: Former smoker alcohol intake: current Smoking Status: Former smoker alcohol intake frequency: a few times a month Substance Use Type: does not use Exam Narrative Exam Narrative: GENERAL: [72] year old patient appears stated age. Well-developed patient, in mild distress. HEAD: Atraumatic. Normocephalic. EYES: Pupils equal round and reactive. Extraocular motions intact. No scleral icterus. No injection or drainage. ENT: Nose without bleeding, purulent drainage. Throat without erythema, tonsillar hypertrophy or exudate. Airway patent. NECK: Trachea midline. Non tender CARDIOVASCULAR: Regular rate and rhythm without murmurs, gallops, or rubs. RESPIRATORY: Clear to auscultation. Breath sounds equal bilaterally. No wheezes, rales, or rhonchi. GASTROINTESTINAL: Abdomen soft, non-tender, nondistended. EXTREMITIES: No edema or joint tenderness. BACK: Nontender without deformity or crepitance. No flank tenderness. NEURO: AOx3. SKIN: No rash or erythema of visible areas NIH Stroke Scale 1a. LOC: Patient is alert and keenly responsive (0) 1b. LOC Questions: Patient answers both LOC questions accurately (0) 1c. LOC Commands: Patient performs both tasks correctly (0) 2. Best Gaze: Normal (0) 3. Visual: No visual loss (0) 4. Facial palsy: Normal symmetrical movements (0) 5. Motor arm: No drift (0) 6. Motor leg: No drift (0) 7. Limb ataxia: Absent (0) 8. Sensory: Normal (0) 9. Best language: No aphasia; normal (0) 10. Dysarthria: Normal (0) 11. Extinction and inattention: No abnormality (0) NIHSS: 0 Initial Vital Signs Initial Vital Signs: Vital Signs Temperature 98.1 F 11/06/22 12:00 Pulse Rate 68 11/06/22 12:00 Respiratory Rate 14 11/06/22 12:00 Blood Pressure 213/85 H 11/06/22 12:00 Pulse Oximetry 98 11/06/22 12:00 Oxygen Delivery Method Room Air 11/06/22 12:00 Course Orders Ordered: ED Orders 11/06/22 12:05 Complete Blood Count AUTO DIFF Stat Comprehensive Metabolic Panel Stat Ethanol (ETOH) Stat PTT Partial Thromboplastin Romero Stat Prothrombin Time INR Stat Troponin & CK Cardiac Panel Stat 11/06/22 12:12 Urinalysis and Microscopic Stat Urine Drug Screen, Rapid Stat EKG-12 Lead Stat 11/06/22 12:48 CT angio head and neck Stat 11/06/22 12:50 COVID19 -Nasal RAPID Stat Discontinued Medications Lorazepam (Lorazepam 2 Mg/Ml Inj) 1 mg IV NOW ONE Stop: 11/06/22 12:48 Last Admin: 11/06/22 12:55 Dose: 1 mg Documented By: MADISON Vital Signs Vital signs: Vital Signs - 8 hr 11/06/22 12:00 11/06/22 12:08 11/06/22 12:30 Temperature 98.1 F Pulse Rate 68 65 64 Respiratory Rate 14 19 18 Blood Pressure 213/85 H Pulse Oximetry 98 97 97 Oxygen Delivery Method Room Air 11/06/22 12:31 11/06/22 12:31 11/06/22 13:03 Temperature Pulse Rate 62 62 Respiratory Rate 20 19 Blood Pressure 187/81 H Pulse Oximetry 97 98 Oxygen Delivery Method Room Air 11/06/22 13:30 11/06/22 14:00 11/06/22 14:19 Temperature Pulse Rate 60 61 Respiratory Rate 29 H 35 H Blood Pressure 209/92 H Pulse Oximetry 98 97 Oxygen Delivery Method 11/06/22 14:19 Temperature Pulse Rate 63 Respiratory Rate 18 Blood Pressure Pulse Oximetry 99 Oxygen Delivery Method MDM - Dizziness Lab Data 11/06/22 12:05 11/06/22 12:05 Labs: Lab Results 11/06/22 11/06/22 11/06/22 Range/Units 12:05 12:05 12:05 WBC 7.9 (4.5-11.0) X10^3/uL RBC 4.57 (4.0-5.2) X10^6/uL Hgb 14.3 (12.0-16.0) g/dL Hct 42.5 (36-46) % MCV 93.1 (80-100) fL MCH 31.3 (26-34) PG MCHC 33.6 (30-36) % RDW 13.5 (11.6-14.8) % Plt Count 221 (150-400) X10^3/uL Neut % (Auto) 70.3 (50-75) % Lymph % (Auto) 20.1 L (25-40) % [place] % (Auto) 8.2 (3-14) % Eos % (Auto) 0.8 L (2-4) % Baso % (Auto) 0.6 (0-2) % Neut # (Auto) 5600 (9816-9675) /uL Lymph # (Auto) 1600 (9272-9580) /uL [place] # (Auto) 600 (0-900) /uL Eos # (Auto) 100 (0-450) /uL Baso # (Auto) 0 (0-100) /uL PT 14.9 H (10.1-12.7) SECONDS INR 1.3 (0.9-1.3) APTT 45 H (26-36) SECONDS Sodium 140 (137-145) mmol/L Potassium 4.1 (3.4-5.1) mmol/L Chloride 104 (98-107) mmol/L Carbon Dioxide 32 (22-32) mmol/L BUN 15 (7-17) mg/dL Creatinine 0.58 (0.52-1.04) mg/dL Estimated GFR > 60 (>60) mL/min BUN/Creatinine Ratio 25.9 H (6-22) Glucose 114 H (80-110) mg/dL Calcium 10.2 (8.4-10.2) mg/dL Total Bilirubin 0.7 (0.2-1.3) mg/dL AST 34 (14-36) IU/L ALT 33 (<35) IU/L Alkaline Phosphatase 95 (38-126) U/L Total Creatine Kinase 62 (30-135) U/L Troponin I < 0.012 (0.01-0.034) ng/mL Total Protein 8.0 (6.3-8.2) g/dL Albumin 4.7 (3.5-5.0) g/dL Globulin 3.3 (1.7-4.1) g/dL Albumin/Globulin Ratio 1.4 (1.0-2.8) Ethyl Alcohol < 10 ( - 10) mg/dL SARS-CoV-2 (PCR) (Negative) 11/06/22 Range/Units 12:50 WBC (4.5-11.0) X10^3/uL RBC (4.0-5.2) X10^6/uL Hgb (12.0-16.0) g/dL Hct (36-46) % MCV (80-100) fL MCH (26-34) PG MCHC (30-36) % RDW (11.6-14.8) % Plt Count (150-400) X10^3/uL Neut % (Auto) (50-75) % Lymph % (Auto) (25-40) % [place] % (Auto) (3-14) % Eos % (Auto) (2-4) % Baso % (Auto) (0-2) % Neut # (Auto) (2749-9819) /uL Lymph # (Auto) (3949-1149) /uL [place] # (Auto) (0-900) /uL Eos # (Auto) (0-450) /uL Baso # (Auto) (0-100) /uL PT (10.1-12.7) SECONDS INR (0.9-1.3) APTT (26-36) SECONDS Sodium (137-145) mmol/L Potassium (3.4-5.1) mmol/L Chloride (98-107) mmol/L Carbon Dioxide (22-32) mmol/L BUN (7-17) mg/dL Creatinine (0.52-1.04) mg/dL Estimated GFR (>60) mL/min BUN/Creatinine Ratio (6-22) Glucose (80-110) mg/dL Calcium (8.4-10.2) mg/dL Total Bilirubin (0.2-1.3) mg/dL AST (14-36) IU/L ALT (<35) IU/L Alkaline Phosphatase (38-126) U/L Total Creatine Kinase (30-135) U/L Troponin I (0.01-0.034) ng/mL Total Protein (6.3-8.2) g/dL Albumin (3.5-5.0) g/dL Globulin (1.7-4.1) g/dL Albumin/Globulin Ratio (1.0-2.8) Ethyl Alcohol ( - 10) mg/dL SARS-CoV-2 (PCR) Negative (Negative) Urine Dip Bedside Urine Glucose Negative Bedside Urine Bilirubin - Negative Bedside Urine Ketone - Negative Urine Specific [place] 1.005 Bedside Urine Occult Blood - Negative Bedside Urine pH 7.5 Bedside Urine Protein - Negative Bedside Urine Urobilinogen - Negative Bedside Urine Nitrite - Negative Bedside Urine Leukocytes - Negative Esterase MDM Narrative Medical decision making narrative: CC: 72-year-old female with dizziness Complicating co-morbidities: AFib on Eliquis, hypertension, hyperlipidemia Data collected from: Patient Medical records reviewed: Prior notes reviewed in our EMR Differential considered, but not limited to: Peripheral vertigo such as BPPV versus labyrinthitis versus central causes such as posterior circulation versus other Exam documented above, pertinent findings include: No obvious reproducible nystagmus, normal NIH, ataxic on ambulation Lab Test results independently reviewed as above. Pertinent findings: No significant abnormalities Independently reviewed EKG as above Imaging studies independently reviewed: CT of the head as well as CTA of the head and neck are unremarkable, no signs of large vessel occlusion, stroke or dissection Scores Used: NIHSS Consultations: Hospitalist,Dr. Hopkins happy to accept on his service Treatments: meclizine x2 (home) ativan 1mg Re-evaluations: No improvement, patient is still ataxic Discussion: 72-year-old female with dizziness. She describes a sense that the room is spinning and walks and unsteady gait, there is no reproducible nystagmus nor did she experience improvement with meclizine or Ativan. Imaging is thus far unremarkable but her history and examination are concerning for posterior circulation stroke and patient requires hospitalization for the completion of this workup. She understands and agrees with diagnosis and plan Discharge Plan Departure Prescriptions: No Action coenzyme Q10 [Co Q-10] 100 MG capsule 200 mg PO QDAY Qty: 0 lutein 20 MG tablet 20 mg PO DAILY Qty: 0 vitamin E 268 mg (400 unit) Capsule 450 mg PO QDAY Qty: 0 aspirin 81 MG tablet,chewable 81 mg PO QDAY Qty: 0 Eliquis 5 mg tablet 5 mg PO BID Qty: 180 0RF atorvastatin 80 mg tablet 80 mg PO HS Qty: 90 1RF lamotrigine 150 mg tablet 150 mg PO QDAY Qty: 90 1RF magnesium 200 mg tablet 400 mg PO DAILY diltiazem HCl [Cardizem CD] 240 mg capsule,extended release 24hr 240 mg PO DAILY Qty: 15 1RF metoprolol succinate 25 mg tablet extended release 24 hr 25 mg PO DAILY Qty: 15 1RF quetiapine [Seroquel] 200 mg tablet 300 mg PO HS furosemide [Lasix] 20 mg tablet 20 mg PO DAILY Qty: 3 0RF cholecalciferol (vitamin D3) [Vitamin D3] 25 mcg (1,000 unit) Capsule 1,000 unit PO DAILY Referrals: Nicole Davey MD [Primary Care Provider] -
[2022-11-06 12:25] LABS: INR 1.3 (0.9-1.3); Prothrombin Time 14.9 SECONDS (10.1-12.7)
[2022-11-06 12:28] LABS: PTT Partial Thromboplastin Tim 45 SECONDS (26-36)
[2022-11-06 12:30] LABS: Alanine Aminotransferase 33 IU/L (<35); Albumin 4.7 g/dL (3.5-5.0); Albumin Globulin Ratio 1.4 (1.0-2.8); Alkaline Phosphatase 95 U/L (38-126); Aspartate Aminotransferase 34 IU/L (14-36); BUN Creatinine Ratio 25.9 (6-22); Bilirubin Total 0.7 mg/dL (0.2-1.3); Blood Urea Nitrogen 15 mg/dL (7-17); Calcium 10.2 mg/dL (8.4-10.2); Carbon Dioxide 32 mmol/L (22-32); Chloride 104 mmol/L (98-107); Creatine Kinase 62 U/L (30-135); Estimated Glomerular Filt Rate > 60 mL/min (>60); Ethanol (ETOH) < 10 mg/dL; Globulin 3.3 g/dL (1.7-4.1); Glucose 114 mg/dL (80-110); HEMOLYSIS < 15 (0-50); Potassium 4.1 mmol/L (3.4-5.1); Sodium 140 mmol/L (137-145)
[2022-11-06 12:41] LABS: Troponin I < 0.012 ng/mL (0.01-0.034)
[2022-11-06 12:48] LABS: Add Manual Diff / Slide Review NO; Basophils Absolute Auto 0 /uL (0-100); Basophils Percent Auto 0.6 % (0-2); Eosinophils Absolute Auto 100 /uL (0-450); Eosinophils Percent Auto 0.8 % (2-4); Hematocrit 42.5 % (36-46); Hemoglobin 14.3 g/dL (12.0-16.0); Lymphocytes Absolute Auto 1600 /uL (1100-4500); Lymphocytes Percent Auto 20.1 % (25-40); Mean Corpuscular HGB Conc 33.6 % (30-36); Mean Corpuscular Hemoglobin 31.3 PG (26-34); Mean Corpuscular Volume 93.1 fL (80-100); Monocytes Absolute Auto 600 /uL (0-900); Monocytes Percent Auto 8.2 % (3-14); Neutrophils Absolute Auto 5600 /uL (1500-7000); Neutrophils Percent Auto 70.3 % (50-75); Platelet Count 221 X10^3/uL (150-400); Red Blood Cell Count 4.57 X10^6/uL (4.0-5.2); Red Cell Distribution Width 13.5 % (11.6-14.8); White Blood Cell Count 7.9 X10^3/uL (4.5-11.0)
--- NOTE | 2022-11-06 12:48 | DI.CT.S_ITS ---
PROCEDURE: CT ANGIO HEAD AND NECK INDICATIONS: dizzy, vision change, spinal manipulation yesterday TECHNIQUE: Pre-contrast 4.5 mm thick sections acquired from the foramen magnum to the vertex. After the administration of intravenous contrast, 1 mm thick sections acquired from the aortic arch through the [place]. Post-contrast 4.5 mm thick sections then re-acquired from the foramen magnum to the vertex. 3-dimensional akcdygj-zmdobflbl-iaxmpbiysz (MIP) and/or volume rendering reformats were acquired of the central intracranial vasculature and neck separately. For radiation dose reduction, the following was used: automated exposure control, adjustment of mA and/or kV according to patient size. COMPARISON: None. FINDINGS: Image quality: Excellent. BRAIN: CSF spaces: Ventricles are normal in size and shape. Basal cisterns are patent. No extra-axial fluid collections. Brain: No midline shift. No intracranial bleeds or masses. [place]-white matter interface appears intact. Skull and face: Calvarium and facial bones appear intact, without suspicious lesions. Orbits appear normal. Sinuses: Sinuses and mastoids are clear. HEAD CT ANGIOGRAPHY: Anterior circulation: Intracranial internal carotid arteries are normal in size and flow. The flow within the paired anterior cerebral arteries is normal and symmetric. The flow within the middle cerebral arteries is normal and symmetric. The anterior communicating artery is seen. No aneurysms are seen. Posterior circulation: Visualized portions of the vertebral arteries demonstrate normal caliber, and join to form a normal appearing basilar artery. Flow within the posterior cerebral arteries is normal and symmetric. No aneurysms are seen. NECK CT ANGIOGRAPHY: Carotid system: The great vessels demonstrate a conventional anatomy as they arise from the aortic arch. The origins of the common carotid arteries appear patent. The common carotid arteries demonstrate normal caliber and courses. The bifurcation regions are both widely patent. The internal carotid arteries demonstrate normal calibers and courses. Posterior circulation: The origins of the vertebral arteries both appear widely patent. The more superior extracranial portions of both vertebral arteries also demonstrate normal courses and calibers, with normal anatomic variant dominance of the left vertebral artery. They join to form a normal appearing basilar artery. Soft tissues: Visualized neck soft tissues demonstrate no suspicious abnormalities. Bones: No suspicious bony lesions. Visualized cervical spine appears normally aligned. IMPRESSION: No intracranial ischemic injury is seen, no embolic disease is found. There is normal anatomic variant dominance of the left vertebral artery, and the course of the vertebral arteries from their origin into the posterior fossa appears normal, free of evidence of dissection or focal stenosis. The carotid circulation also shows no evidence of appreciable stenosis or occlusion. Any quantitative measurements of stenosis were performed using NASCET criteria. Dictated by: Mekhi Guevara M.D. on 11/06/2022 at 13:15 Approved by: Mekhi Guevara M.D. on 11/06/2022 at 13:21
[2022-11-06] MEDS: LORazepam 2 MG/ML INJ 1 MG IV (12:55)
[2022-11-06 13:12] LABS: COVID19 -Nasal RAPID Negative (Negative)
[2022-11-06 15:06] LABS: Appearance Urine UA TURBID; Bilirubin Urine UA NEGATIVE (NEGATIVE); Color Urine UA YELLOW; Glucose Urine UA NEGATIVE (Negative); Ketones Urine UA NEGATIVE (NEGATIVE); Leukocyte Esterase Urine UA NEGATIVE (NEGATIVE); Nitrite Urine UA NEGATIVE (Negative); Occult Blood Urine UA NEGATIVE (Negative); Protein Urine UA NEGATIVE (Negative); Specific Gravity Urine UA <=1.005 (1.000-1.035); Urobilinogen Urine UA 0.2 E.U./dL (0.2)
--- NOTE | 2022-11-06 15:15 | PM.HP.1 ---
History of Present Illness History of Present Illness Date Patient Seen: 11/06/22 Time Patient Seen: 15:15 Date of Onset of Symptoms: 11/05/22 Chief complaint: VERTIGO Narrative: The patient developed some mild vertigo symptoms yesterday after a chiropractic treatment to neck. She had some unsteadiness of gait and was restless all night. No headache, but some nausea. This AM she was more unstable with gait and needed help walking. Some spinning, increased with positional movement. No headache or diplopia. No visual changes or numbness of arms or legs. No weakness, or speech changes, Her friend gave her meclizine and she had mild improvement after two doses this AM. No H/O vertigo, TIA. She has a H/O AF but is in NSR since an ablation. She is on Apixiban with great compliance. CTA neck negative for dissection. [facility] Medical History AF (paroxysmal atrial fibrillation) Anxiety Bipolar disorder Coronary artery disease Depression Family history of colon cancer in father Hyperlipemia Hypertension Low back pain (~07/2016) Myocardial infarction (~04/2016) Surgical History History of colonoscopy History of knee replacement Family History Father Cancer Heart disease Mother Mental health problem Stroke Social History marital status: household members: spouse Smoking Status: Former smoker alcohol intake: current Meds Home Medications and Allergies Home Medications Medication Instructions Recorded Confirmed Type coenzyme Q10 100 mg capsule (Co 200 mg PO QDAY ##0 12/25/15 07/27/20 History Q-10) lutein 20 mg tablet 20 mg PO DAILY ##0 12/25/15 07/27/20 History vitamin E 268 mg (400 unit) capsule 450 mg PO QDAY ##0 05/13/17 07/27/20 History aspirin 81 mg chewable tablet 81 mg PO QDAY ##0 05/19/17 07/27/20 History magnesium 200 mg tablet 400 mg PO DAILY 06/01/18 07/27/20 History apixaban 5 mg tablet (Eliquis) 5 mg PO BID #180 tabs 04/14/19 07/27/20 Rx atorvastatin 80 mg tablet 80 mg PO HS #90 tabs 04/14/19 07/27/20 Rx lamotrigine 150 mg tablet 150 mg PO QDAY #90 tabs 04/14/19 07/27/20 Rx cholecalciferol (vitamin D3) 25 1,000 unit PO DAILY 05/28/19 07/27/20 History mcg (1,000 unit) capsule (Vitamin D3) diltiazem HCl 240 mg 240 mg PO DAILY #15 caps 05/28/19 07/27/20 Rx capsule,extended release 24 hr (Cardizem CD) metoprolol succinate 25 mg 25 mg PO DAILY #15 tabs 05/28/19 07/27/20 Rx tablet,extended release 24 hr furosemide 20 mg tablet (Lasix) 20 mg PO DAILY #3 tabs 07/27/20 Rx quetiapine 200 mg tablet (Seroquel) 300 mg PO HS 07/27/20 07/27/20 History Allergies Allergy/AdvReac Type Severity Reaction Status Date / Time No Known Drug Allergies Allergy Verified 07/27/20 13:49 Review of Systems Review of Systems Narrative: No fever, URI sx. No hearing loss, or tinnitus. All else reviewed and otherwise negative. Exam Vital Signs (past 8 hours): - 11/06/22 12:00 11/06/22 12:08 11/06/22 12:30 Temperature 98.1 F Pulse Rate 68 65 64 Respiratory Rate 14 19 18 Blood Pressure 213/85 H Pulse Oximetry 98 97 97 Oxygen Delivery Method Room Air 11/06/22 12:31 11/06/22 12:31 11/06/22 13:03 Temperature Pulse Rate 62 62 Respiratory Rate 20 19 Blood Pressure 187/81 H Pulse Oximetry 97 98 Oxygen Delivery Method Room Air 11/06/22 13:30 11/06/22 14:00 11/06/22 14:19 Temperature Pulse Rate 60 61 Respiratory Rate 29 H 35 H Blood Pressure 209/92 H Pulse Oximetry 98 97 Oxygen Delivery Method 11/06/22 14:19 Temperature Pulse Rate 63 Respiratory Rate 18 Blood Pressure Pulse Oximetry 99 Oxygen Delivery Method Oxygen Delivery Method Room Air Narrative Exam Narrative: NAD, oriented to person, place, and time. Fluent speech No nystagmus Normal cranial nerves Normal motor strength of all extremities Normal ROM arms and legs Neg pronator drift. Neck with normal thyroid and ROM Lungs clear, normal effort Heart regular without murmur Abdomen soft, non-tender No leg edema Skin without rash Joints normal Affect and judgement normal Objective ECG Impression: NSR Imaging CT scan - head: Radiologist's impression: IMPRESSION:? No intracranial ischemic injury is seen, no embolic disease is found.? There is normal anatomic variant dominance of the left vertebral artery, and the course of the vertebral arteries from their origin into the posterior fossa appears normal, free of evidence of dissection or focal stenosis.? The carotid circulation also shows no evidence of appreciable stenosis or occlusion. Labs 11/06/22 12:05 11/06/22 12:05 Labs: Laboratory Results - last 24 hr 11/06/22 11/06/22 11/06/22 12:05 12:05 12:05 WBC 7.9 RBC 4.57 Hgb 14.3 Hct 42.5 MCV 93.1 MCH 31.3 MCHC 33.6 RDW 13.5 Plt Count 221 Neut % (Auto) 70.3 Lymph % (Auto) 20.1 L [place] % (Auto) 8.2 Eos % (Auto) 0.8 L Baso % (Auto) 0.6 Neut # (Auto) 5600 Lymph # (Auto) 1600 [place] # (Auto) 600 Eos # (Auto) 100 Baso # (Auto) 0 PT 14.9 H INR 1.3 APTT 45 H Sodium 140 Potassium 4.1 Chloride 104 Carbon Dioxide 32 BUN 15 Creatinine 0.58 Estimated GFR > 60 BUN/Creatinine Ratio 25.9 H Glucose 114 H Calcium 10.2 Total Bilirubin 0.7 AST 34 ALT 33 Alkaline Phosphatase 95 Total Creatine Kinase 62 Troponin I < 0.012 Total Protein 8.0 Albumin 4.7 Globulin 3.3 Albumin/Globulin Ratio 1.4 Urine Color Urine Appearance Urine pH Ur Specific [place] Urine Protein Urine Glucose (UA) Urine Ketones Urine Occult Blood Urine Nitrate Urine Bilirubin Urine Urobilinogen Ur Leukocyte Esterase Ethyl Alcohol < 10 SARS-CoV-2 (PCR) 11/06/22 11/06/22 12:50 14:52 WBC RBC Hgb Hct MCV MCH MCHC RDW Plt Count Neut % (Auto) Lymph % (Auto) [place] % (Auto) Eos % (Auto) Baso % (Auto) Neut # (Auto) Lymph # (Auto) [place] # (Auto) Eos # (Auto) Baso # (Auto) PT INR APTT Sodium Potassium Chloride Carbon Dioxide BUN Creatinine Estimated GFR BUN/Creatinine Ratio Glucose Calcium Total Bilirubin AST ALT Alkaline Phosphatase Total Creatine Kinase Troponin I Total Protein Albumin Globulin Albumin/Globulin Ratio Urine Color Yellow Urine Appearance Turbid Urine pH 7.0 Ur Specific [place] <=1.005 Urine Protein Negative Urine Glucose (UA) Negative Urine Ketones Negative Urine Occult Blood Negative Urine Nitrate Negative Urine Bilirubin Negative Urine Urobilinogen 0.2 Ur Leukocyte Esterase Negative Ethyl Alcohol SARS-CoV-2 (PCR) Negative Assessment & Plan Assessment & Plan narrative: 1. Positional vertigo, POA (present on admission and active). 2. Remote Atrial fibrillation S/P ablation on apixiban. 3. CAD with H/O NSTEMI, POAS (present on admission and stable). Plan: -MRI brsin r/o cerebellar stroke -scheduled meclizine -prn zofran and Ativan -Physical therapy evaluation Full code Dispo: home in 1 day Time Spent With Patient Time with patient: 30 to 49 minutes with 50% spent counseling/coordinating care Quality MIPS - Admit I confirm the patient?s Advance Care Plan is present, Code status is documented, Surrogate decision maker is in patient?s record [If Yes, STOP here]: Yes
[2022-11-06 15:18] LABS: UR Morphine/Opiate cutoff 300 Negative (Negative); Ur Creatinine Normal (Normal); Ur Specific Gravity Normal (Normal); Urine Amphetamines Negative (Negative); Urine Barbiturates Negative (Negative); Urine Benzodiazepines Negative (Negative); Urine Cocaine Negative (Negative); Urine MDMA Negative (Negative); Urine Methadone Negative (Negative); Urine Methamphetamines Negative (Negative); Urine Phencyclidine Negative (Negative); Urine Tetrahydrocannabinol Negative (Negative); Urine pH Normal (Normal)
[2022-11-06 15:19] LABS: Urine Oxycodone Negative (Negative); Urine Tricyclic Antidepressant Positive (Negative)
--- NOTE | 2022-11-06 15:27 | DI.MRI.S_ITS ---
PROCEDURE: MR HEAD/BRAIN WO CON INDICATIONS: vertigo TECHNIQUE: Non-contrast axial T1 spin echo, axial T2 fast spin echo, sagittal and axial FLAIR, coronal T2 fast spin echo, axial gradient echo, axial diffusion and ADC through the brain. COMPARISON: [facility], CT, CT ANGIO HEAD AND NECK, 11/06/2022, 12:53. FINDINGS: Image quality: Excellent. CSF spaces: Ventricles appear symmetric in size and shape. Basal cisterns are patent. No extra-axial fluid collections. Brain: No intracranial bleeds or mass effects. There is cerebral volume loss for age. There are mild, age-appropriate periventricular and deep white matter chronic small vessel ischemic changes. Brainstem appears normal. Diffusion-weighted images show no acute ischemic insults. No chronic ischemic insults. Normal intravascular flow voids are present. Skull and face: Calvarial bone marrow is normal in signal. Orbits are normal. Sinuses: Small bilateral maxillary sinus mucous retention cyst. Paranasal sinuses and mastoids are otherwise clear. IMPRESSION: Negative brain MRI for patient age. Mild small vessel ischemic change. No acute intracranial process identified. Dictated by: Luis Poe M.D. on 11/06/2022 at 17:11 Approved by: Luis Poe M.D. on 11/06/2022 at 17:14
[2022-11-06 15:31] LABS: Amorphous Sediment Urine 1+; Bacteria Urine None Seen; Culture Indicated Urine Cult Not Indicated; RBC Urine None Seen (0-5/HPF); Squamous Epithelial Cell Urine 0-1 /HPF (0-5/HPF); WBC Urine 0-1/HPF (0-5/HPF)
[2022-11-06] MEDS: LORazepam 2 MG/ML INJ 0.5 MG IV (16:07)
[2022-11-06] MEDS: MECLIZINE HCL 12.5 MG TABLET 25 MG PO ×2 (17:32→23:48)
[2022-11-06] MEDS: QUETIAPINE 100 MG TABLET 200 MG PO (22:39)
[2022-11-06] MEDS: APIXABAN 5 MG TABLET PO (22:39)
[2022-11-06] MEDS: ATORVASTATIN 20 MG TABLET 80 MG PO (22:40)
[2022-11-07 04:47] VITALS: BP 146/65; PULSE 75; RESP 18; TEMP 36.3; O2SAT 97
[2022-11-07] MEDS: MECLIZINE HCL 12.5 MG TABLET 25 MG PO (05:21)
--- NOTE | 2022-11-07 05:46 | PC.NURSE ---
Pt. reported feeling much better this morning, no dizziness, no nausea & no pain or discomfort. Anticipating to go home today. Will continue plan of care & monitor.
--- NOTE | 2022-11-07 07:59 | P.DS_ITS ---
History of Present Illness History of Present Illness Date Patient Seen: 11/07/22 Chief complaint: VERTIGO Narrative: Patient feeling fine. Has been up walking without symptoms of vertigo. Tolerating meclizine. Eager to go home. Eating breakfast well without nausea. Has not been seen by Physical therapy but due to the ability walk without symptoms can be discharged without this assessment. Discharge Providers Provider Date of admission: 11/06/22 14:44 Discharge Date: 11/07/22 Primary care physician: Nicole Davey MD Consults: 11/06/22 15:15 Consult to Physical Therapy Evaluate & Treat Comment: Physician Instructions: Evaluate and Treat Discharge provider: Tere Welsh MD Summary Hospital Course Discharge Diagnosis: Positional vertigo, POA (present on admission and active). Remote Atrial fibrillation S/P ablation on apixiban. CAD with H/O NSTEMI, POAS (present on admission and stable) Elevated BNP (present on admission) Other comorbidities/past medical history: Anxiety Bipolar disorder Depression Family history of colon cancer in father Hyperlipemia Hypertension Low back pain (~07/2016) History of colonoscopy History of knee replacement Hospital Course: Dulce Parks is a 72-year-old woman who developed some mild vertigo symptoms on the day prior to presentation after a chiropractic treatment to neck. She had some unsteadiness of gait and was restless all night. No headache, but some nausea. On the day of presentation, she was more unstable with gait and needed help walking. Some spinning, increased with positional movement. No headache or diplopia. No visual changes or numbness of arms or legs. No weakness, or speech changes, Her friend gave her meclizine and she had mild improvement after two doses this AM. No H/O vertigo, TIA. She has a H/O AF but is in NSR since an ablation. She is on Apixiban with great compliance. No acute findings on CT angio of the head and neck or MRI of the brain. Patient responded well to meclizine 25 mg q.6h. At the time of discharge, she could walk out symptoms. Is eating well and having no nausea. Of note, on presentation patient's BNP was elevated to 763. This was not empirically treated and patient had no signs of congestive heart failure on exa mination; however, the BNP should be followed as an outpatient and the patient followed clinically to see if treatment is warranted. Status at Discharge Cognitive/behavioral status at discharge: at baseline, oriented Functional status at discharge: independent ambulation Overall status at discharge: patient is back to baseline Time Spent with Patient Time spent: Greater than 30 minutes Exam Vital Signs (past 8 hours): - 11/07/22 04:47 Temperature 97.4 F L Pulse Rate 75 Respiratory Rate 18 Blood Pressure 146/65 H Pulse Oximetry 97 Oxygen Flow Rate 0 Oxygen Delivery Method Room Air Oxygen Flow Rate 0 Narrative Exam Narrative: General: Patient alert and oriented x3, appears to be in no acute medical distress. Cardiovascular: Heart sounds normal no murmurs. Respiratory: Adequate air entry throughout the lung silva no wheezes or crackles. Musculoskeletal: Able to move all extremities volitionally. Able to walk without vertigo symptoms. Objective Labs 11/06/22 12:05 11/06/22 12:05 Labs: Laboratory Results - last 24 hr 11/06/22 11/06/22 11/06/22 12:05 12:05 12:05 WBC 7.9 RBC 4.57 Hgb 14.3 Hct 42.5 MCV 93.1 MCH 31.3 MCHC 33.6 RDW 13.5 Plt Count 221 Neut % (Auto) 70.3 Lymph % (Auto) 20.1 L [place] % (Auto) 8.2 Eos % (Auto) 0.8 L Baso % (Auto) 0.6 Neut # (Auto) 5600 Lymph # (Auto) 1600 [place] # (Auto) 600 Eos # (Auto) 100 Baso # (Auto) 0 PT 14.9 H INR 1.3 APTT 45 H Sodium 140 Potassium 4.1 Chloride 104 Carbon Dioxide 32 BUN 15 Creatinine 0.58 Estimated GFR > 60 BUN/Creatinine Ratio 25.9 H Glucose 114 H Calcium 10.2 Total Bilirubin 0.7 AST 34 ALT 33 Alkaline Phosphatase 95 Total Creatine Kinase 62 Troponin I < 0.012 Total Protein 8.0 Albumin 4.7 Globulin 3.3 Albumin/Globulin Ratio 1.4 Urine Color Urine Appearance Urine pH Ur Specific [place] Urine Protein Urine Glucose (UA) Urine Ketones Urine Occult Blood Urine Nitrate Urine Bilirubin Urine Urobilinogen Ur Leukocyte Esterase Urine RBC Urine WBC Ur Squamous Epith Cells Amorphous Sediment Urine Bacteria Ur Culture Indicated? U Opiates 300ng/mL cut Ur Oxycodone Screen Urine Methadone Screen Ur Barbiturates Screen U Tricyclic Antidepress Ur Phencyclidine Scrn Ur Amphetamines Screen U Methamphetamines Scrn Ur MDMA Scrn (Ecstasy) U Benzodiazepines Scrn Urine Cocaine Screen U Marijuana (THC) Screen Ethyl Alcohol < 10 SARS-CoV-2 (PCR) 11/06/22 11/06/22 11/06/22 12:50 14:52 14:52 WBC RBC Hgb Hct MCV MCH MCHC RDW Plt Count Neut % (Auto) Lymph % (Auto) [place] % (Auto) Eos % (Auto) Baso % (Auto) Neut # (Auto) Lymph # (Auto) [place] # (Auto) Eos # (Auto) Baso # (Auto) PT INR APTT Sodium Potassium Chloride Carbon Dioxide BUN Creatinine Estimated GFR BUN/Creatinine Ratio Glucose Calcium Total Bilirubin AST ALT Alkaline Phosphatase Total Creatine Kinase Troponin I Total Protein Albumin Globulin Albumin/Globulin Ratio Urine Color Yellow Urine Appearance Turbid Urine pH 7.0 Ur Specific [place] <=1.005 Urine Protein Negative Urine Glucose (UA) Negative Urine Ketones Negative Urine Occult Blood Negative Urine Nitrate Negative Urine Bilirubin Negative Urine Urobilinogen 0.2 Ur Leukocyte Esterase Negative Urine RBC None seen Urine WBC 0-1/hpf Ur Squamous Epith Cells 0-1 /hpf Amorphous Sediment 1+ Urine Bacteria None seen Ur Culture Indicated? Cult not indicated U Opiates 300ng/mL cut Negative Ur Oxycodone Screen Negative Urine Methadone Screen Negative Ur Barbiturates Screen Negative U Tricyclic Antidepress Positive H Ur Phencyclidine Scrn Negative Ur Amphetamines Screen Negative U Methamphetamines Scrn Negative Ur MDMA Scrn (Ecstasy) Negative U Benzodiazepines Scrn Negative Urine Cocaine Screen Negative U Marijuana (THC) Screen Negative Ethyl Alcohol SARS-CoV-2 (PCR) Negative [facility] Medical History (Updated 11/07/22 @ 00:14 by Dayanara Artis DO) AF (paroxysmal atrial fibrillation) Anxiety Bipolar disorder Coronary artery disease Depression Family history of colon cancer in father Hyperlipemia Hypertension Low back pain (~07/2016) Myocardial infarction (~04/2016) Surgical History History of colonoscopy History of knee replacement Family History Father Cancer Heart disease Mother Mental health problem Stroke Social History marital status: household members: spouse Smoking Status: Former smoker alcohol intake: current Discharge Plan Discharge Plan Patient Disposition: Home Discharge orders & Medications Prescriptions: New meclizine 12.5 mg Tablet 25 mg PO Q6HR Qty: 50 0RF quetiapine [Seroquel] 100 mg Tablet 200 mg PO BEDTIME Qty: 60 0RF Continued coenzyme Q10 [Co Q-10] 100 MG capsule 200 mg PO QDAY Qty: 0 lutein 20 MG tablet 20 mg PO DAILY Qty: 0 vitamin E 268 mg (400 unit) Capsule 450 mg PO QDAY Qty: 0 Eliquis 5 mg tablet 5 mg PO BID Qty: 180 0RF atorvastatin 80 mg tablet 80 mg PO HS Qty: 90 1RF lamotrigine 150 mg tablet 150 mg PO QDAY Qty: 90 1RF quetiapine [Seroquel] 200 mg tablet 200 mg PO HS Patient Comments: only takes 200 mg. @ HS. Women's Multiple Vitamins 1 tab PO DAILY quetiapine 200 mg tablet 200 mg PO ONCE PM cholecalciferol (vitamin D3) [Vitamin D3] 25 mcg (1,000 unit) Capsule 1,000 unit PO DAILY Follow up/Referrals: Nicole Davey MD [Primary Care Provider] - Diet/Activity/Treatments Diet: Diet as Tolerated Visit Report/Discharge Packet Stand Alone Forms: Patient Portal/API, Stroke Signs & Symptoms Discharge Data Primary Care Provider: Nicole Davey Quality VTE Deep Vein Thrombosis/Pulmonary Embolism Present on Admission: No
[2022-11-07 08:00] VITALS: O2SAT 96
--- NOTE | 2022-11-07 08:26 | PC.NURSE ---
Addendum entered by Jade Scales R.N. 11/07/22 11:12: Pt Tele & HL discontinued intact. Home instructions given w/understanding Pt escorted by staff via W/C to waiting vehicle in stable condition. Original Note: Pt awake, denies any discomfort at this time. Independent to BR Received orders for D/C Call light w/in reach. pt calls appropriately for needs. Continue w/plan of care.
[2022-11-07 09:00] VITALS: BP 140/62; PULSE 71; RESP 17; TEMP 36.1; O2SAT 96
--- NOTE | 2022-11-07 09:06 | PT-IP ANOTE ---
PT eval received. Reviewed EMR. per hospitalist, No PT needs. will d/c PT eval order.
[2022-11-07] MEDS: APIXABAN 5 MG TABLET PO (09:30)
--- NOTE | 2022-11-07 09:30 | CM.DANOTE ---
Initial Discharge Planning Assessment Note: Case reviewed, met with patient. Introduced self and role. Payer: Medicare and [employer] PCP: Nicole Davey 72 year old remale admitted yesterday with positional vertigo symptoms and gait unsteadiness; remote history of AFib. Patient is independent and lives in [place] with spouse Pete. Likely discharge today. Plan: No discharge planning needs. Discharge home with spouse once medically cleared. J Discharge Planning/Care Management CM Discharge Assessment Start: 11/07/22 09:28 Freq: Status: Active Protocol: Document 11/07/22 09:28 (Rec: 11/07/22 09:29 [id number]) Discharge Planning Assessment Assigned Waste Recycler Ekaterina Combs RN/DCP Advance Directives? No History Provided By Patient,Medical Record Has Patient been admitted in last 30 No days? Prior Living Arrangements House Household Members spouse Type of transporation used prior to Drives own vehicle admit Independent with ADL's Yes Is patient alert and oriented? Yes Caregiver for Another No Barriers to Discharge No Discharge Plan Home Referrals Initiated None needed Review Status In Process Next Review Type Continued Stay Review
== END 2022-11-07 10:40 | disposition home or self-care (01) ==
LOC: ED 14:08 → AC 14:56
PROVIDERS: Admitting Provider Hospitalist; Emergency Provider Emergency Medicine; PCP Internal Medicine; Referring Provider Emergency Medicine; Visit Provider Hospitalist
DX: R42 Dizziness and giddiness (principal); I10 Essential (primary) hypertension; E78.5 Hyperlipidemia, unspecified; I48.91 Unspecified atrial fibrillation; R79.89 Other specified abnormal findings of blood chemistry; R29.700 NIHSS score 0; I25.10 Atherosclerotic heart disease of native coronary artery without angina pectoris; I25.2 Old myocardial infarction; Z20.822 Contact with and (suspected) exposure to COVID-19
CPT/HCPCS: 36415; 70496; 70498; 70551; 80053; 80305; 80320; 81001; 81003; 82550; 82962; 84484; 85025; 85610; 85730; 87635; 93005; 96374; 96376; 99284; C9803; G0378; J2060

== ENCOUNTER 2023-04-12 13:34 | Emergency (ER) | payer MEDICARE, OTHER, SELFPAY ==
[2022-11-06 15:52] VITALS: BMI 32.1
[2023-04-12] VITALS (18 sets, daily range): BP systolic 98–160; BP diastolic 53–83; PULSE 68–136; RESP 12–33; TEMP 36.1–37; O2SAT 91–97; BMI 31.0
--- NOTE | 2023-04-12 13:44 | DI.RAD.S_ITS ---
PROCEDURE: XR CHEST 1V INDICATIONS: chest pain TECHNIQUE: One view of the chest was acquired. COMPARISON: [facility], CT, CT ANGIO CHEST, 02/03/2021, 16:04. [facility], CR, XR CHEST 1V, 07/27/2020, 13:58. FINDINGS: Surgical changes and devices: None. Lungs and pleura: On this semiupright portable chest examination, no large pneumothorax or large pleural effusions are seen. No focal infiltrates are seen. Mediastinum: Mediastinal contours appear normal. Heart size is normal. Bones and chest wall: No suspicious bony lesions. Age-appropriate bony degenerative changes are seen. Overlying soft tissues appear unremarkable. IMPRESSION: No acute cardiopulmonary abnormality is seen. Dictated by: Shantanu Butcher M.D. on 04/12/2023 at 12:58 Approved by: Shantanu Butcher M.D. on 04/12/2023 at 13:00
--- NOTE | 2023-04-12 13:57 | ED_ITS ---
HPI - Arrhythmia/Palpitations General Chief Complaint: Arrhythmia/Palpitations Stated Complaint: States AFIB Time Seen by Provider: 04/12/23 13:57 Source: patient and family Mode of arrival: Ambulatory History of Present Illness HPI narrative: Patient is a 72-year-old female who presents today with atrial fibrillation. She does have a history of AFib she has been compliant with Eliquis presents today in a AFib. She reports that last night she had some good food she would 2 glasses of wine she had some chocolate. She reports that a device told her she was in atrial fibrillation this morning. She did feel little more tired all more short of breath she did not quite feel the flip-flopping that she used to feel. She has had multiple ablations previously. Related Data Home Medications Medication Instructions Recorded Confirmed coenzyme Q10 100 mg capsule (Co 200 mg PO QDAY ##0 12/25/15 11/06/22 Q-10) lutein 20 mg tablet 20 mg PO DAILY ##0 12/25/15 11/06/22 vitamin E 268 mg (400 unit) capsule 450 mg PO QDAY ##0 05/13/17 11/06/22 cholecalciferol (vitamin D3) 25 1,000 unit PO DAILY 05/28/19 11/06/22 mcg (1,000 unit) capsule (Vitamin D3) quetiapine 200 mg tablet (Seroquel) 200 mg PO HS 07/27/20 11/06/22 Women's Multiple Vitamins 1 tab PO DAILY 11/06/22 11/06/22 quetiapine 200 mg tablet 200 mg PO ONCE PM 11/06/22 11/06/22 Previous Rx's Medication Instructions Recorded apixaban 5 mg tablet (Eliquis) 5 mg PO BID #180 tabs 04/14/19 atorvastatin 80 mg tablet 80 mg PO HS #90 tabs 04/14/19 lamotrigine 150 mg tablet 150 mg PO QDAY #90 tabs 04/14/19 meclizine 12.5 mg tablet 25 mg (2 x 12.5 mg) PO Q6HR #50 11/07/22 tabs quetiapine 100 mg tablet (Seroquel) 200 mg (2 x 100 mg) PO BEDTIME #60 11/07/22 tabs Allergies Allergy/AdvReac Type Severity Reaction Status Date / Time No Known Drug Allergies Allergy Verified 04/12/23 13:39 Patient History Medical History (Updated 04/12/23 @ 15:19 by Starr Huber DO) Family history of colon cancer in father Anxiety Depression AF (paroxysmal atrial fibrillation) Low back pain (~07/2016) Hypertension Hyperlipemia Coronary artery disease Bipolar disorder Myocardial infarction (~04/2016) Surgical History History of colonoscopy History of knee replacement Family History Father Cancer Heart disease Mother Mental health problem Stroke Social History marital status: household members: spouse Smoking Status: Former smoker alcohol intake: current Smoking Status: Former smoker alcohol intake frequency: a few times a week Substance Use Type: does not use and marijuana Exam Initial Vital Signs Initial Vital Signs: Vital Signs Temperature 97.0 F L 04/12/23 13:39 Pulse Rate 86 04/12/23 13:39 Respiratory Rate 18 04/12/23 13:39 Blood Pressure 160/69 H 04/12/23 13:39 Pulse Oximetry 97 04/12/23 13:39 Oxygen Delivery Method Room Air 04/12/23 13:39 GENERAL: Pleasant 72-year-old female and in [no acute] distress. HEENT: Head atraumatic,EOMI, pupils reactive, face symmetric, [moist] mucous membranes CARDIOVASCULAR: Irregularly irregular. RESPIRATORY: Breath sounds equal bilaterally, no wheezes rales or rhonchi. ABDOMEN: Soft, nontender. Normoactive bowel sounds all 4 quadrants. No guarding or rebound. EXTREMITIES: Normal range of motion, no clubbing or edema. Neurovascularly intact NEUROLOGICAL: Alert and oriented x4.Normal gait and speech. SKIN: Warm, dry, no laceration, no petechiae, no rashes or lesions. Procedures Cardioversion Consent Signed: Yes Indication: Symptomatic atrial fibrillation Number of attempts (shocks): 2 Joules used: 120 and 150 Cardiac rhythm post-cardioversion: NSR Procedural Sedation Consent signed: Yes Time out performed: Yes Indication: cardioversion ASA Class: II Mallampati Airway Classification: Class II IV Propofol dose (mg): 80 Intraservice time/total sedation time (min): 12 ED Sedation Level: Moderate (Concious) Patient Tolerated Procedure: Well and No complications Complications: none Course Orders Ordered: ED Orders 04/12/23 13:44 XR chest 1V Stat EKG-12 Lead Stat 04/12/23 13:54 Complete Blood Count AUTO DIFF Stat Comprehensive Metabolic Panel Stat Lipase Stat Magnesium Stat PTT Partial Thromboplastin Romero Stat Prothrombin Time INR Stat Troponin & CK Cardiac Panel Stat 04/12/23 15:09 EKG-12 Lead Routine Discontinued Medications Aspirin (Aspirin 81 Mg Chew Tab) 324 mg PO NOW ONE Stop: 04/12/23 13:45 Last Admin: 04/12/23 15:27 Dose: Not Given Documented By: LINCOLN Diltiazem HCl (Diltiazem 5 Mg/Ml Sdv) 10 mg IV NOW ONE Stop: 04/12/23 13:58 Last Admin: 04/12/23 14:05 Dose: 10 mg Documented By: CONSTANTINE Propofol (Propofol 200 Mg/20 Ml Vial) 90 mg 1 mg/kg (90 mg) IV NOW ONE Stop: 04/12/23 13:58 Last Admin: 04/12/23 14:56 Dose: 80 mg Documented By: CONSTANTINE Vital Signs Vital signs: Vital Signs - 8 hr 04/12/23 13:39 04/12/23 13:47 04/12/23 13:48 Temperature 97.0 F L Pulse Rate 86 125 H Respiratory Rate 18 32 H Blood Pressure 160/69 H 126/83 Pulse Oximetry 97 91 Oxygen Delivery Method Room Air 04/12/23 14:00 04/12/23 14:05 04/12/23 14:30 Temperature Pulse Rate 136 H 130 H 101 H Respiratory Rate 33 H 12 Blood Pressure 126/83 Pulse Oximetry 95 96 Oxygen Delivery Method 04/12/23 14:59 04/12/23 14:59 04/12/23 15:00 Temperature Pulse Rate 112 H 98 H Respiratory Rate 13 14 Blood Pressure 122/63 Pulse Oximetry 95 96 Oxygen Delivery Method 04/12/23 15:00 04/12/23 15:03 04/12/23 15:03 Temperature Pulse Rate 79 Respiratory Rate 32 H Blood Pressure 132/70 108/55 L Pulse Oximetry 93 Oxygen Delivery Method 04/12/23 15:05 04/12/23 15:05 04/12/23 15:10 Temperature Pulse Rate 75 75 Respiratory Rate 26 H 20 Blood Pressure 135/62 Pulse Oximetry 94 95 Oxygen Delivery Method 04/12/23 15:10 04/12/23 15:15 04/12/23 15:15 Temperature Pulse Rate 74 Respiratory Rate 19 Blood Pressure 104/53 L 98/53 L Pulse Oximetry 94 Oxygen Delivery Method 04/12/23 15:20 04/12/23 15:20 04/12/23 15:25 Temperature Pulse Rate 72 Respiratory Rate 15 Blood Pressure 102/59 L 106/57 L Pulse Oximetry 96 Oxygen Delivery Method 04/12/23 15:25 04/12/23 15:30 04/12/23 15:30 Temperature 98.6 F Pulse Rate 69 70 70 Respiratory Rate 25 H 17 18 Blood Pressure 112/58 L Pulse Oximetry 96 96 96 Oxygen Delivery Method 04/12/23 15:30 04/12/23 15:35 04/12/23 15:35 Temperature Pulse Rate 72 69 Respiratory Rate 17 26 H Blood Pressure 112/56 L 109/54 L Pulse Oximetry 96 97 Oxygen Delivery Method Room Air 04/12/23 15:39 04/12/23 15:39 04/12/23 15:40 Temperature Pulse Rate 68 68 Respiratory Rate 22 18 Blood Pressure 109/58 L Pulse Oximetry 97 97 Oxygen Delivery Method MDM - Arrhythmia/Palpitations Lab Data 04/12/23 13:54 04/12/23 13:54 Labs: Lab Results 04/12/23 Range/Units 13:54 WBC 8.0 (4.5-11.0) X10^3/uL RBC 4.59 (4.0-5.2) X10^6/uL Hgb 14.4 (12.0-16.0) g/dL Hct 42.1 (36-46) % MCV 91.7 (80-100) fL MCH 31.3 (26-34) PG MCHC 34.1 (30-36) % RDW 13.3 (11.6-14.8) % Plt Count 220 (150-400) X10^3/uL Neut % (Auto) 64.8 (50-75) % Lymph % (Auto) 23.2 L (25-40) % [place] % (Auto) 8.9 (3-14) % Eos % (Auto) 1.9 L (2-4) % Baso % (Auto) 1.2 (0-2) % Neut # (Auto) 5200 (0727-2405) /uL Lymph # (Auto) 1900 (7099-8713) /uL [place] # (Auto) 700 (0-900) /uL Eos # (Auto) 100 (0-450) /uL Baso # (Auto) 100 (0-100) /uL PT 13.4 H (9.4-12.5) SECONDS INR 1.2 (0.9-1.3) APTT 42 H (25.1-36.5) SECONDS Sodium 139 (137-145) mmol/L Potassium 4.0 (3.4-5.1) mmol/L Chloride 105 (98-107) mmol/L Carbon Dioxide 25 (22-32) mmol/L BUN 19 H (7-17) mg/dL Creatinine 0.64 (0.52-1.04) mg/dL Estimated GFR > 60 (>60) mL/min BUN/Creatinine Ratio 29.7 H (6-22) Glucose 132 H (80-110) mg/dL Calcium 10.7 H (8.4-10.2) mg/dL Magnesium 2.0 (1.6-2.3) mg/dL Total Bilirubin 0.5 (0.2-1.3) mg/dL AST 36 (14-36) IU/L ALT 41 H (<35) IU/L Alkaline Phosphatase 113 (38-126) U/L Total Creatine Kinase 64 (30-135) U/L Troponin I 0.012 (0.01-0.034) ng/mL Total Protein 7.7 (6.3-8.2) g/dL Albumin 4.5 (3.5-5.0) g/dL Globulin 3.2 (1.7-4.1) g/dL Albumin/Globulin Ratio 1.4 (1.0-2.8) Lipase 195 (23-300) U/L Point of Care Testing Test Results Not applicable Imaging Data Chest x-ray: Radiologist's Impresson: PROCEDURE: XR CHEST 1V INDICATIONS: chest pain TECHNIQUE: One view of the chest was acquired. COMPARISON: [facility], CT, CT ANGIO CHEST, 02/03/2021, 16:04. [facility], CR, XR CHEST 1V, 07/27/2020, 13:58. FINDINGS: Surgical changes and devices: None. Lungs and pleura: On this semiupright portable chest examination, no large pneumothorax or large pleural effusions are seen. No focal infiltrates are seen. Mediastinum: Mediastinal contours appear normal. Heart size is normal. Bones and chest wall: No suspicious bony lesions. Age-appropriate bony degenerative changes are seen. Overlying soft tissues appear unremarkable. IMPRESSION: No acute cardiopulmonary abnormality is seen. Dictated by: Shantanu Butcher M.D. on 04/12/2023 at 12:58 ECG Data Interpretation: EKG 1. Atrial fibrillation rate [address] changes no T-wave inversions EKG 2. Normal sinus rhythm rate 84 KS interval 134 QRS [address] changes MDM Narrative Medical decision making narrative: Patient is 72-year-old female history of atrial fibrillation on Eliquis presenting today with symptomatic AFib. She reports that she has a monitor she did not feel quite right and it did tell her she was in AFib. There is no contraindication for cardioversion she is compliant with Eliquis. Actually Dr. Balderas while on-call cardiology called and told me she was coming in. Blood work has been reviewed there is no clinical significant abnormalities no electrolyte abnormalities no DENZEL. No anemia or leukocytosis troponin negative Chest x-ray reviewed no acute cardiopulmonary process Patient cardioverted with 2 attempts and was in sinus rhythm. No changes in medication at this time follow-up outpatient. Discharge Plan Departure Patient Disposition: Home Clinical Impression: Atrial fibrillation Instructions: DI for Atrial Fibrillation Activity Restrictions/Additional Instructions: *You have been diagnosed with atrial fibrillation *What to do: At this time you are successfully cardioverted please continue taking your medications. Recommend avoiding alcohol at all cost *Continue to take medications as directed Continue Eliquis *Follow up with your primary care provider in 2-3 days or call [phone] *Return to ER if you should have increasing heart rate palpitations shortness of breath or any new, worsening or concerning symptoms Prescriptions: No Action coenzyme Q10 [Co Q-10] 100 MG capsule 200 mg PO QDAY Qty: 0 lutein 20 MG tablet 20 mg PO DAILY Qty: 0 vitamin E 268 mg (400 unit) Capsule 450 mg PO QDAY Qty: 0 Eliquis 5 mg tablet 5 mg PO BID Qty: 180 0RF atorvastatin 80 mg tablet 80 mg PO HS Qty: 90 1RF lamotrigine 150 mg tablet 150 mg PO QDAY Qty: 90 1RF quetiapine [Seroquel] 200 mg tablet 200 mg PO HS Patient Comments: only takes 200 mg. @ HS. Women's Multiple Vitamins 1 tab PO DAILY quetiapine 200 mg tablet 200 mg PO ONCE PM meclizine 12.5 mg Tablet 25 mg PO Q6HR Qty: 50 0RF quetiapine [Seroquel] 100 mg Tablet 200 mg PO BEDTIME Qty: 60 0RF cholecalciferol (vitamin D3) [Vitamin D3] 25 mcg (1,000 unit) Capsule 1,000 unit PO DAILY Referrals: Nicole Davey MD [Primary Care Provider] - Stand Alone Forms: Patient Portal/API
[2023-04-12 14:03] LABS: Add Manual Diff / Slide Review NO; Basophils Absolute Auto 100 /uL (0-100); Basophils Percent Auto 1.2 % (0-2); Eosinophils Absolute Auto 100 /uL (0-450); Eosinophils Percent Auto 1.9 % (2-4); Hematocrit 42.1 % (36-46); Hemoglobin 14.4 g/dL (12.0-16.0); Lymphocytes Absolute Auto 1900 /uL (1100-4500); Lymphocytes Percent Auto 23.2 % (25-40); Mean Corpuscular HGB Conc 34.1 % (30-36); Mean Corpuscular Hemoglobin 31.3 PG (26-34); Mean Corpuscular Volume 91.7 fL (80-100); Monocytes Absolute Auto 700 /uL (0-900); Monocytes Percent Auto 8.9 % (3-14); Neutrophils Absolute Auto 5200 /uL (1500-7000); Neutrophils Percent Auto 64.8 % (50-75); Platelet Count 220 X10^3/uL (150-400); Red Blood Cell Count 4.59 X10^6/uL (4.0-5.2); Red Cell Distribution Width 13.3 % (11.6-14.8)
[2023-04-12] MEDS: dilTIAZem 5 MG/ML SDV 10 MG IV (14:05)
[2023-04-12 14:16] LABS: INR 1.2 (0.9-1.3); Prothrombin Time 13.4 SECONDS (9.4-12.5)
[2023-04-12 14:19] LABS: PTT Partial Thromboplastin Tim 42 SECONDS (25.1-36.5)
[2023-04-12 14:23] LABS: Alanine Aminotransferase 41 IU/L (<35); Albumin 4.5 g/dL (3.5-5.0); Albumin Globulin Ratio 1.4 (1.0-2.8); Alkaline Phosphatase 113 U/L (38-126); Aspartate Aminotransferase 36 IU/L (14-36); BUN Creatinine Ratio 29.7 (6-22); Bilirubin Total 0.5 mg/dL (0.2-1.3); Blood Urea Nitrogen 19 mg/dL (7-17); Calcium 10.7 mg/dL (8.4-10.2); Carbon Dioxide 25 mmol/L (22-32); Chloride 105 mmol/L (98-107); Creatine Kinase 64 U/L (30-135); Estimated Glomerular Filt Rate > 60 mL/min (>60); Globulin 3.2 g/dL (1.7-4.1); Glucose 132 mg/dL (80-110); HEMOLYSIS < 15 (0-50); Lipase 195 U/L (23-300); Sodium 139 mmol/L (137-145); Total Protein 7.7 g/dL (6.3-8.2)
--- NOTE | 2023-04-12 14:24 | PC.NURSE ---
Pt came to the ED today because she felt like she was in afib. Pt has hx of cardioversion and ablation a few years ago and has not felt like she has been in afib since then. Pt denies any sob, cp, n/v. But pt states that it feels like there is a fish flopping around inside her chest and her heart is pounding. Pt is a&ox4. Pt currently in afib with a HR of 126.
[2023-04-12 14:35] LABS: Troponin I 0.012 ng/mL (0.01-0.034)
[2023-04-12] MEDS: propofoL 200 MG/20 ML VIAL 90 MG IV (14:56)
--- NOTE | 2023-04-12 15:39 | PC.NURSE ---
1457 TO called. [address] davidson. 1500 cardioversion procedure began and pt tolerated well. Pt HR 72 and NSR. Pt a&ox4 and answers questions appropriately and is at bedside.
== END 2023-04-12 15:52 | disposition home or self-care (01) ==
PROVIDERS: Emergency Provider Emergency Medicine; PCP Internal Medicine
DX: I48.91 Unspecified atrial fibrillation (principal); R07.9 Chest pain, unspecified; Z79.01 Long term (current) use of anticoagulants
CPT/HCPCS: 36415; 71045; 80053; 82550; 83690; 83735; 84484; 85025; 85610; 85730; 92960; 93005; 96374; 99152; 99285; J2704

== ENCOUNTER 2023-04-18 23:07 | Emergency (ER) | payer MEDICARE, OTHER, SELFPAY ==
[2022-11-06 15:52] VITALS: BMI 32.1
[2023-04-18] VITALS (8 sets, daily range): BP systolic 114–177; BP diastolic 54–87; PULSE 78–146; RESP 20–38; TEMP 36.4; O2SAT 94–99; BMI 30.8
--- NOTE | 2023-04-18 23:24 | ED_ITS ---
HPI - Arrhythmia/Palpitations General Chief Complaint: Arrhythmia/Palpitations Stated Complaint: afib Time Seen by Provider: 04/18/23 23:24 Source: patient Mode of arrival: Ambulatory History of Present Illness HPI narrative: 72-year-old woman with a history of hypertension hyperlipidemia bipolar disorder prior ablation for atrial fibrillation and presents in recurrent atrial fibrillation. Her most recent episode was April 12, she was seen in the emergency department and cardioverted. She continues on her apixaban with her evening dose taken at 9:00 a.m.. At approximately 10:30 a.m. she felt that her heart was going faster with a sensation of atrial fibrillation that she is experienced before. This was confirmed with a home monitor. She complains of some mild tightness across her chest but no other issues. She comes in for further evaluation. She states she has not recently had any fever, cough, chills, abdominal pain. No palpitations since the episode of atrial fibrillation on the . Normal voiding and stooling. Related Data Home Medications Medication Instructions Recorded Confirmed coenzyme Q10 100 mg capsule (Co 200 mg PO QDAY ##0 12/25/15 11/06/22 Q-10) lutein 20 mg tablet 20 mg PO DAILY ##0 12/25/15 11/06/22 vitamin E 268 mg (400 unit) capsule 450 mg PO QDAY ##0 05/13/17 11/06/22 cholecalciferol (vitamin D3) 25 1,000 unit PO DAILY 05/28/19 11/06/22 mcg (1,000 unit) capsule (Vitamin D3) quetiapine 200 mg tablet (Seroquel) 200 mg PO HS 07/27/20 11/06/22 Women's Multiple Vitamins 1 tab PO DAILY 11/06/22 11/06/22 quetiapine 200 mg tablet 200 mg PO ONCE PM 11/06/22 11/06/22 Previous Rx's Medication Instructions Recorded apixaban 5 mg tablet (Eliquis) 5 mg PO BID #180 tabs 04/14/19 atorvastatin 80 mg tablet 80 mg PO HS #90 tabs 04/14/19 lamotrigine 150 mg tablet 150 mg PO QDAY #90 tabs 04/14/19 meclizine 12.5 mg tablet 25 mg (2 x 12.5 mg) PO Q6HR #50 11/07/22 tabs quetiapine 100 mg tablet (Seroquel) 200 mg (2 x 100 mg) PO BEDTIME #60 11/07/22 tabs Allergies Allergy/AdvReac Type Severity Reaction Status Date / Time No Known Drug Allergies Allergy Verified 04/12/23 13:39 Review of Systems Review of Systems Narrative: Pertinent positive and negative findings as per HPI Patient History Medical History (Updated 04/19/23 @ 00:31 by Saima Diego MD) Family history of colon cancer in father Anxiety Depression AF (paroxysmal atrial fibrillation) Low back pain (~07/2016) Hypertension Hyperlipemia Coronary artery disease Bipolar disorder Myocardial infarction (~04/2016) Surgical History History of colonoscopy History of knee replacement Family History Father Cancer Heart disease Mother Mental health problem Stroke Social History marital status: household members: spouse Smoking Status: Former smoker alcohol intake: current Smoking Status: Former smoker alcohol intake frequency: a few times a week Substance Use Type: does not use and marijuana Exam Initial Vital Signs Initial Vital Signs: Vital Signs Temperature 97.6 F 04/18/23 23:09 Pulse Rate 98 H 04/18/23 23:09 Respiratory Rate 20 04/18/23 23:09 Blood Pressure 153/73 H 04/18/23 23:09 Pulse Oximetry 95 04/18/23 23:09 Oxygen Delivery Method Room Air 04/18/23 23:09 General: Healthy appearing, in no acute distress. Able to give a complete and coherent history. Well-nourished well-developed HEENT: Moist mucous membranes, normal sclera with reactive pupils, Neck: No JVD, supple Respiratory: Lungs are clear to auscultation, no wheezing no rales no rhonchi. Full and symmetrical air movement Cardiac: Irregular at a weight of 144. No murmurs appreciated Abdomen: Soft, nontender, good bowel tones, no flank pain Skin: Warm and dry, no rashes Neurologic: Grossly neurologically intact with no obvious asymmetries or abnormalities Extremities: No trauma, well perfused Psych: Cooperative, appropriate insight and affect Procedures Cardioversion Time of Cardioversion: 23:40 Consent Signed: Yes Indication: Atrial fibrillation with rapid ventricular response Number of attempts (shocks): 1 Joules used: 200 Cardiac rhythm post-cardioversion: Sinus rhythm Procedural Sedation Time of procedure: 23:41 Consent signed: Yes Time out performed: Yes Indication: cardioversion Presedation Evaluation: With most recent cardioversion 80 mg of propofol was used with reported success, we will plan on repeating same dose ASA Class: II Mallampati Airway Classification: Class II Time of Last PO Intake: 23:41 Preparation: cardiac catheterization technologist applied, pulse oximeter, capnometry used, supplemental O2 applied, suction/airway equipment at bedside and IV secured IV Propofol dose (mg): 80 Intraservice time/total sedation time (min): 7 ED Sedation Level: Moderate (Concious) Patient Tolerated Procedure: Well and No complications Complications: none Additional Comments: Would likely do well with 60 mg of IV propofol if needed for future cardioversions Course Orders Ordered: ED Orders 04/18/23 23:20 Complete Blood Count AUTO DIFF Stat Comprehensive Metabolic Panel Stat Magnesium Stat Troponin I Stat 04/18/23 23:43 EKG-12 Lead Stat EKG-12 Lead Stat Discontinued Medications Propofol (Propofol 200 Mg/20 Ml Vial) 80 mg IV NOW ONE Stop: 04/18/23 23:47 Last Admin: 04/18/23 23:47 Dose: Not Given Documented By: STEPHANIE Vital Signs Vital signs: Vital Signs - 8 hr 04/18/23 23:09 04/18/23 23:17 04/18/23 23:18 Temperature 97.6 F Pulse Rate 98 H 118 H 112 H Respiratory Rate 20 Blood Pressure 153/73 H Pulse Oximetry 95 99 97 Oxygen Delivery Method Room Air 04/18/23 23:18 04/18/23 23:30 04/18/23 23:30 Temperature Pulse Rate 134 H Respiratory Rate 38 H Blood Pressure 177/87 H 169/79 H Pulse Oximetry 96 Oxygen Delivery Method 04/18/23 23:35 04/18/23 23:35 04/18/23 23:48 Temperature Pulse Rate 83 146 H Respiratory Rate 20 24 Blood Pressure 136/58 L Pulse Oximetry 94 Oxygen Delivery Method MDM - Arrhythmia/Palpitations Lab Data 04/18/23 23:20 04/18/23 23:20 Labs: Lab Results 04/18/23 Range/Units 23:20 WBC 7.9 (4.5-11.0) X10^3/uL RBC 4.58 (4.0-5.2) X10^6/uL Hgb 14.1 (12.0-16.0) g/dL Hct 42.4 (36-46) % MCV 92.6 (80-100) fL MCH 30.8 (26-34) PG MCHC 33.2 (30-36) % RDW 13.3 (11.6-14.8) % Plt Count 199 (150-400) X10^3/uL Neut % (Auto) 52.7 (50-75) % Lymph % (Auto) 33.3 (25-40) % [place] % (Auto) 11.1 (3-14) % Eos % (Auto) 1.8 L (2-4) % Baso % (Auto) 1.1 (0-2) % Neut # (Auto) 4200 (2521-2252) /uL Lymph # (Auto) 2600 (2994-3000) /uL [place] # (Auto) 900 (0-900) /uL Eos # (Auto) 100 (0-450) /uL Baso # (Auto) 100 (0-100) /uL Sodium 139 (137-145) mmol/L Potassium 3.8 (3.4-5.1) mmol/L Chloride 105 (98-107) mmol/L Carbon Dioxide 25 (22-32) mmol/L BUN 26 H (7-17) mg/dL Creatinine 0.59 (0.52-1.04) mg/dL Estimated GFR > 60 (>60) mL/min BUN/Creatinine Ratio 44.1 H (6-22) Glucose 114 H (80-110) mg/dL Calcium 10.9 H (8.4-10.2) mg/dL Magnesium 2.0 (1.6-2.3) mg/dL Total Bilirubin 0.5 (0.2-1.3) mg/dL AST 37 H (14-36) IU/L ALT 44 H (<35) IU/L Alkaline Phosphatase 116 (38-126) U/L Troponin I < 0.012 (0.01-0.034) ng/mL Total Protein 7.7 (6.3-8.2) g/dL Albumin 4.5 (3.5-5.0) g/dL Globulin 3.2 (1.7-4.1) g/dL Albumin/Globulin Ratio 1.4 (1.0-2.8) Point of Care Testing Test Results Not applicable MDM Narrative Medical decision making narrative: CC: Atrial fibrillation recurrent at 10:30 a.m. this evening Complicating co-morbidities: Prior episodes of AFib most recent cardioversion April 12, post ablation in the past, currently anticoagulated apixaban Data collected from: patient, Medical records reviewed: Recent hospital notes and ER visit with similar complaints reviewed Differential considered: Atrial fibrillation, acute coronary syndrome, pulmonary embolism, pneumothorax Exam documented above, pertinent findings include: Patient is alert and appropriate. Notes slight fluttering in her chest but no significant pain or other complaints. Cardiac exam does not suggest congestive heart failure but does show atrial fibrillation with rapid ventricular response Lab Test results independently reviewed as above. Pertinent findings: CBC is unremarkable Chemistries are close to their baseline, Troponin is not elevated Independently reviewed EKG: Atrial fibrillation at a rate of 128. No acute ischemic changes Post cardioversion EKG shows sinus rhythm with a rate of 79 normal intervals, normal axis no acute ischemic changes Treatments: She is sedated with 80 mg of propofol and a single shock was required for cardioversion. Re-evaluations:1230am patient is alert and appropriate. She has had a snack. Requesting discharge Discussion: 72-year-old woman with a history of atrial fibrillation, anticoagulated, post ablation, recurrent atrial fibrillation on the resolved with cardioversion. Recurrent episode at 10:30 a.m. this evening. Resolved with cardioversion. She remains anticoagulated. At this point she is safe for discharge has successfully recovered from her conscious sedation. She will call follow-up with Dr. Moulton, her rail transportation operator on Wednesday to see what additional recommendations he may have for her. We will continue all current medications including her apixaban. No evidence of heart failure, electrolyte abnormalities, acute coronary event or alternate explanations that would require further observation, additional imaging or hospitalization. Questions are answered and she is safe for discharge Critical Care Time Critical Care Time Critical Care Time: Yes Total Critical Care Time: 33 Attestation: Critical care time is separate from other billable procedures. There is a high probability of a significant, sudden or life-threatening deterioration that requires my full and direct attention, intervention and personal management. This critical care time includes consultation with family and other consulting doctors, review of records, and interpretation of data from labs, EKGs and imaging as well as managements of atrial fibrillation with rapid ventricular response Discharge Plan Departure Patient Disposition: Home Clinical Impression: Atrial fibrillation status post cardioversion Instructions: DI for Atrial Fibrillation, DI for Moderate Sedation Activity Restrictions/Additional Instructions: Thank you for coming in this evening I am sorry that you are back in atrial fibrillation. I am pleased that we were easily able to administer a single shock and cardiovert you back to sinus rhythm. You tolerated the procedure well. I have given you instructions regarding both atrial fibrillation as well as moderate sedation Please call Dr. Moulton on Wednesday to let him know that you are cardioverted on April 12 and April 18 both without difficulties and see what recommendations he has for additional follow-up or medication changes If you find that you are getting worse or develop any new symptoms, please feel free to return to the emergency department for further evaluation. Prescriptions: No Action coenzyme Q10 [Co Q-10] 100 MG capsule 200 mg PO QDAY Qty: 0 lutein 20 MG tablet 20 mg PO DAILY Qty: 0 vitamin E 268 mg (400 unit) Capsule 450 mg PO QDAY Qty: 0 Eliquis 5 mg tablet 5 mg PO BID Qty: 180 0RF atorvastatin 80 mg tablet 80 mg PO HS Qty: 90 1RF lamotrigine 150 mg tablet 150 mg PO QDAY Qty: 90 1RF quetiapine [Seroquel] 200 mg tablet 200 mg PO HS Patient Comments: only takes 200 mg. @ HS. Women's Multiple Vitamins 1 tab PO DAILY quetiapine 200 mg tablet 200 mg PO ONCE PM meclizine 12.5 mg Tablet 25 mg PO Q6HR Qty: 50 0RF quetiapine [Seroquel] 100 mg Tablet 200 mg PO BEDTIME Qty: 60 0RF cholecalciferol (vitamin D3) [Vitamin D3] 25 mcg (1,000 unit) Capsule 1,000 unit PO DAILY Referrals: Nicole Davey MD [Primary Care Provider] - Stand Alone Forms: Patient Portal/API
[2023-04-18] MEDS: propofoL 200 MG/20 ML VIAL IV (23:44)
[2023-04-18 23:53] LABS: Add Manual Diff / Slide Review NO; Basophils Absolute Auto 100 /uL (0-100); Basophils Percent Auto 1.1 % (0-2); Eosinophils Absolute Auto 100 /uL (0-450); Eosinophils Percent Auto 1.8 % (2-4); Hematocrit 42.4 % (36-46); Hemoglobin 14.1 g/dL (12.0-16.0); Lymphocytes Absolute Auto 2600 /uL (1100-4500); Lymphocytes Percent Auto 33.3 % (25-40); Mean Corpuscular HGB Conc 33.2 % (30-36); Mean Corpuscular Hemoglobin 30.8 PG (26-34); Mean Corpuscular Volume 92.6 fL (80-100); Monocytes Absolute Auto 900 /uL (0-900); Monocytes Percent Auto 11.1 % (3-14); Neutrophils Absolute Auto 4200 /uL (1500-7000); Neutrophils Percent Auto 52.7 % (50-75); Platelet Count 199 X10^3/uL (150-400); Red Blood Cell Count 4.58 X10^6/uL (4.0-5.2); Red Cell Distribution Width 13.3 % (11.6-14.8); White Blood Cell Count 7.9 X10^3/uL (4.5-11.0)
[2023-04-18 23:58] LABS: Alanine Aminotransferase 44 IU/L (<35); Albumin 4.5 g/dL (3.5-5.0); Albumin Globulin Ratio 1.4 (1.0-2.8); Alkaline Phosphatase 116 U/L (38-126); Aspartate Aminotransferase 37 IU/L (14-36); BUN Creatinine Ratio 44.1 (6-22); Bilirubin Total 0.5 mg/dL (0.2-1.3); Blood Urea Nitrogen 26 mg/dL (7-17); Calcium 10.9 mg/dL (8.4-10.2); Carbon Dioxide 25 mmol/L (22-32); Chloride 105 mmol/L (98-107); Estimated Glomerular Filt Rate > 60 mL/min (>60); Globulin 3.2 g/dL (1.7-4.1); Glucose 114 mg/dL (80-110); HEMOLYSIS < 15 (0-50); Potassium 3.8 mmol/L (3.4-5.1); Sodium 139 mmol/L (137-145); Total Protein 7.7 g/dL (6.3-8.2)
[2023-04-19] VITALS: BP 117/58; PULSE 75; RESP 20; O2SAT 94
[2023-04-19 00:09] LABS: Troponin I < 0.012 ng/mL (0.01-0.034)
[2023-04-19 00:30] VITALS: BP 129/62; PULSE 69; RESP 24; O2SAT 95
[2023-04-19 00:43] VITALS: BP 129/62; PULSE 69; RESP 22; O2SAT 96
== END 2023-04-19 00:42 | disposition home or self-care (01) ==
PROVIDERS: Emergency Provider Emergency Medicine; PCP Internal Medicine
DX: I48.91 Unspecified atrial fibrillation (principal); R07.9 Chest pain, unspecified; Z79.01 Long term (current) use of anticoagulants; Z79.899 Other long term (current) drug therapy
CPT/HCPCS: 80053; 83735; 84484; 85025; 92960; 93005; 93010; 99284; 99285; J2704

== ENCOUNTER 2023-05-07 23:51 | Emergency (ER) | payer MEDICARE, OTHER, SELFPAY ==
[2022-11-06 15:52] VITALS: BMI 32.1
[2023-05-07 23:56] VITALS: PULSE 90; O2SAT 98
[2023-05-07 23:58] VITALS: BP 186/71; PULSE 84; RESP 21; O2SAT 97
[2023-05-08] VITALS (7 sets, daily range): BP systolic 129–186; BP diastolic 60–71; PULSE 61–85; RESP 15–23; TEMP 36.6; O2SAT 95–98; BMI 30.4
--- NOTE | 2023-05-08 | DI.RAD.S_ITS ---
PROCEDURE: XR CHEST 1V INDICATIONS: chest pain TECHNIQUE: One view of the chest was acquired. COMPARISON: [facility], CR, XR CHEST 1V, 04/12/2023, 13:49. FINDINGS: Surgical changes and devices: None. Lungs and pleura: Lungs are clear. No pleural effusions or pneumothorax. Mediastinum: Mediastinal contours appear normal. Heart size is normal. Bones and chest wall: No suspicious bony lesions. Overlying soft tissues appear unremarkable. IMPRESSION: No acute cardiopulmonary abnormality is seen. Dictated by: Alfredo Simon M.D. on 05/08/2023 at 0:20 Approved by: Alfredo Simon M.D. on 05/08/2023 at 0:21
[2023-05-08 00:13] LABS: Add Manual Diff / Slide Review NO; Basophils Absolute Auto 0 /uL (0-100); Basophils Percent Auto 0.7 % (0-2); Eosinophils Absolute Auto 200 /uL (0-450); Eosinophils Percent Auto 2.7 % (2-4); Hematocrit 38.9 % (36-46); Hemoglobin 13.1 g/dL (12.0-16.0); Lymphocytes Absolute Auto 2100 /uL (1100-4500); Lymphocytes Percent Auto 32.5 % (25-40); Mean Corpuscular HGB Conc 33.7 % (30-36); Mean Corpuscular Hemoglobin 31.5 PG (26-34); Mean Corpuscular Volume 93.5 fL (80-100); Monocytes Absolute Auto 700 /uL (0-900); Monocytes Percent Auto 10.3 % (3-14); Neutrophils Absolute Auto 3500 /uL (1500-7000); Neutrophils Percent Auto 53.8 % (50-75); Platelet Count 187 X10^3/uL (150-400); Red Blood Cell Count 4.16 X10^6/uL (4.0-5.2); Red Cell Distribution Width 12.9 % (11.6-14.8); White Blood Cell Count 6.4 X10^3/uL (4.5-11.0)
[2023-05-08 00:23] LABS: INR 1.2 (0.9-1.3); Prothrombin Time 13.8 SECONDS (9.4-12.5)
[2023-05-08 00:26] LABS: PTT Partial Thromboplastin Tim 42 SECONDS (25.1-36.5)
[2023-05-08 00:28] LABS: Alanine Aminotransferase 37 IU/L (<35); Albumin 4.2 g/dL (3.5-5.0); Albumin Globulin Ratio 1.4 (1.0-2.8); Alkaline Phosphatase 112 U/L (38-126); Aspartate Aminotransferase 31 IU/L (14-36); BUN Creatinine Ratio 39.3 (6-22); Bilirubin Total 0.5 mg/dL (0.2-1.3); Blood Urea Nitrogen 22 mg/dL (7-17); Calcium 10.2 mg/dL (8.4-10.2); Carbon Dioxide 25 mmol/L (22-32); Chloride 106 mmol/L (98-107); Creatine Kinase 57 U/L (30-135); Estimated Glomerular Filt Rate > 60 mL/min (>60); Glucose 153 mg/dL (80-110); HEMOLYSIS 23 (0-50); Lipase 163 U/L (23-300); Potassium 4.1 mmol/L (3.4-5.1); Sodium 138 mmol/L (137-145); Total Protein 7.2 g/dL (6.3-8.2)
[2023-05-08 00:39] LABS: Troponin I < 0.012 ng/mL (0.01-0.034)
--- NOTE | 2023-05-08 01:35 | ED_ITS ---
HPI - Chest Pain General Chief Complaint: Chest Pain Stated Complaint: heart realted Time Seen by Provider: 05/07/23 23:53 Source: patient Mode of arrival: Ambulatory Limitations: no limitations History of Present Illness HPI narrative: 72-year-old female with history of AFib on Eliquis presents by EMS from home for central chest pressure that began shortly prior to arrival. Brief, lasting only for several minutes. Followed by a ?cold? sensation that went down her body. Currently asymptomatic. Patient has been seen in our ER twice this month for atrial fibrillation requiring cardioversion. Reports compliance with all of her medications. Related Data Home Medications Medication Instructions Recorded Confirmed coenzyme Q10 100 mg capsule (Co 200 mg PO QDAY ##0 12/25/15 11/06/22 Q-10) lutein 20 mg tablet 20 mg PO DAILY ##0 12/25/15 11/06/22 vitamin E 268 mg (400 unit) capsule 450 mg PO QDAY ##0 05/13/17 11/06/22 cholecalciferol (vitamin D3) 25 1,000 unit PO DAILY 05/28/19 11/06/22 mcg (1,000 unit) capsule (Vitamin D3) quetiapine 200 mg tablet (Seroquel) 200 mg PO HS 07/27/20 11/06/22 Women's Multiple Vitamins 1 tab PO DAILY 11/06/22 11/06/22 quetiapine 200 mg tablet 200 mg PO ONCE PM 11/06/22 11/06/22 Previous Rx's Medication Instructions Recorded apixaban 5 mg tablet (Eliquis) 5 mg PO BID #180 tabs 04/14/19 atorvastatin 80 mg tablet 80 mg PO HS #90 tabs 04/14/19 lamotrigine 150 mg tablet 150 mg PO QDAY #90 tabs 04/14/19 meclizine 12.5 mg tablet 25 mg (2 x 12.5 mg) PO Q6HR #50 11/07/22 tabs quetiapine 100 mg tablet (Seroquel) 200 mg (2 x 100 mg) PO BEDTIME #60 11/07/22 tabs Allergies Allergy/AdvReac Type Severity Reaction Status Date / Time No Known Drug Allergies Allergy Verified 04/12/23 13:39 Review of Systems Review of Systems Narrative: See HPI Patient History Medical History Family history of colon cancer in father Anxiety Depression AF (paroxysmal atrial fibrillation) Low back pain (~07/2016) Hypertension Hyperlipemia Coronary artery disease Bipolar disorder Myocardial infarction (~04/2016) Surgical History History of colonoscopy History of knee replacement Family History Father Cancer Heart disease Mother Mental health problem Stroke Social History marital status: household members: spouse Smoking Status: Former smoker alcohol intake: current Smoking Status: Former smoker alcohol intake frequency: a few times a week Substance Use Type: marijuana Exam Initial Vital Signs Initial Vital Signs: Vital Signs Pulse Rate 90 05/07/23 23:56 Pulse Oximetry 98 05/07/23 23:56 Oxygen Delivery Method Room Air 05/07/23 23:56 Const: Awake, alert, no acute distress, nontoxic appearing Eyes: PERRL, EOMI, conjunctiva normal ENT: Atraumatic, dentition normal, mucous membranes moist Cardiac: regular rate, regular rhythm RESP: unlabored, clear bilaterally, no wheezing GI: Atraumatic, soft, nontender, nondistended, no rebound, no guarding MSK: Atraumatic, full range of motion, pulses equal Skin: Warm, Dry, intact, no rashes Neuro: AO x3, CN II-XII grossly intact, moves all extremities Psych: affect normal, mood normal, not suicidal, not homicidal Course Orders Ordered: ED Orders 05/08/23 00:00 XR chest 1V Stat EKG-12 Lead Stat 05/08/23 00:05 Complete Blood Count AUTO DIFF Stat Comprehensive Metabolic Panel Stat Lipase Stat Magnesium Stat PTT Partial Thromboplastin Romero Stat Prothrombin Time INR Stat Troponin & CK Cardiac Panel Stat 05/08/23 01:57 Trop I [Troponin I] Stat Vital Signs Vital signs: Vital Signs - 8 hr 05/07/23 23:56 05/07/23 23:58 05/07/23 23:58 Temperature Pulse Rate 90 84 Respiratory Rate 21 Blood Pressure 186/71 H Pulse Oximetry 98 97 Oxygen Delivery Method Room Air Room Air 05/08/23 00:00 05/08/23 00:00 05/08/23 00:01 Temperature 97.8 F Pulse Rate 82 85 Respiratory Rate 22 18 Blood Pressure 164/69 H 186/71 H Pulse Oximetry 97 98 Oxygen Delivery Method Room Air Room Air 05/08/23 00:30 05/08/23 00:30 05/08/23 01:00 Temperature Pulse Rate 73 67 Respiratory Rate 15 23 Blood Pressure 129/60 Pulse Oximetry 95 95 Oxygen Delivery Method Room Air Room Air 05/08/23 01:00 05/08/23 01:30 05/08/23 01:30 Temperature Pulse Rate 64 Respiratory Rate 23 Blood Pressure 134/65 136/63 Pulse Oximetry 96 Oxygen Delivery Method Room Air 05/08/23 02:00 05/08/23 02:00 05/08/23 02:30 Temperature Pulse Rate 61 61 Respiratory Rate 22 20 Blood Pressure 155/68 H Pulse Oximetry 97 95 Oxygen Delivery Method Room Air Room Air 05/08/23 02:30 Temperature Pulse Rate Respiratory Rate Blood Pressure 147/68 H Pulse Oximetry Oxygen Delivery Method MDM - Chest Pain Differential Diagnosis Differential diagnosis: Likely unstable angina pectoris, atypical chest pain and chest pain Lab Data 05/08/23 00:05 05/08/23 00:05 Labs: Lab Results 05/08/23 05/08/23 Range/Units 00:05 01:57 WBC 6.4 (4.5-11.0) X10^3/uL RBC 4.16 (4.0-5.2) X10^6/uL Hgb 13.1 (12.0-16.0) g/dL Hct 38.9 (36-46) % MCV 93.5 (80-100) fL MCH 31.5 (26-34) PG MCHC 33.7 (30-36) % RDW 12.9 (11.6-14.8) % Plt Count 187 (150-400) X10^3/uL Neut % (Auto) 53.8 (50-75) % Lymph % (Auto) 32.5 (25-40) % [place] % (Auto) 10.3 (3-14) % Eos % (Auto) 2.7 (2-4) % Baso % (Auto) 0.7 (0-2) % Neut # (Auto) 3500 (3400-6114) /uL Lymph # (Auto) 2100 (9566-8150) /uL [place] # (Auto) 700 (0-900) /uL Eos # (Auto) 200 (0-450) /uL Baso # (Auto) 0 (0-100) /uL PT 13.8 H (9.4-12.5) SECONDS INR 1.2 (0.9-1.3) APTT 42 H (25.1-36.5) SECONDS Sodium 138 (137-145) mmol/L Potassium 4.1 (3.4-5.1) mmol/L Chloride 106 (98-107) mmol/L Carbon Dioxide 25 (22-32) mmol/L BUN 22 H (7-17) mg/dL Creatinine 0.56 (0.52-1.04) mg/dL Estimated GFR > 60 (>60) mL/min BUN/Creatinine Ratio 39.3 H (6-22) Glucose 153 H (80-110) mg/dL Calcium 10.2 (8.4-10.2) mg/dL Magnesium 2.0 (1.6-2.3) mg/dL Total Bilirubin 0.5 (0.2-1.3) mg/dL AST 31 (14-36) IU/L ALT 37 H (<35) IU/L Alkaline Phosphatase 112 (38-126) U/L Total Creatine Kinase 57 (30-135) U/L Troponin I < 0.012 < 0.012 (0.01-0.034) ng/mL Total Protein 7.2 (6.3-8.2) g/dL Albumin 4.2 (3.5-5.0) g/dL Globulin 3.0 (1.7-4.1) g/dL Albumin/Globulin Ratio 1.4 (1.0-2.8) Lipase 163 (23-300) U/L ECG Data Interpretation: Normal sinus rhythm, no ST T wave changes, no STEMI, normal ME MDM Narrative Medical decision making narrative: Well-appearing patient with brief episode of chest pain. Currently asymptomatic. Patient does have history of coronary disease, however most recent issues has been controlling patient's atrial fibrillation, for which she has an EP doctor. Patient currently in sinus rhythm, EKG nonischemic. Patient already took aspirin. Laboratory work is reviewed, no significant abnormalities. Chest x-ray shows no acute cardiopulmonary findings. Troponins undetectable x2. Patient relieved, we will follow with her office clerk routine 1st thing Wednesday morning. ED return precautions discussed at bedside. Patient expressed understanding of the plan and is in agreement at this time. All questions answered at the time of discharge. Discharge Plan Departure Patient Disposition: Home Clinical Impression: Chest pain Instructions: DI for Chest Pain Prescriptions: No Action coenzyme Q10 [Co Q-10] 100 MG capsule 200 mg PO QDAY Qty: 0 lutein 20 MG tablet 20 mg PO DAILY Qty: 0 vitamin E 268 mg (400 unit) Capsule 450 mg PO QDAY Qty: 0 Eliquis 5 mg tablet 5 mg PO BID Qty: 180 0RF atorvastatin 80 mg tablet 80 mg PO HS Qty: 90 1RF lamotrigine 150 mg tablet 150 mg PO QDAY Qty: 90 1RF quetiapine [Seroquel] 200 mg tablet 200 mg PO HS Patient Comments: only takes 200 mg. @ HS. Women's Multiple Vitamins 1 tab PO DAILY quetiapine 200 mg tablet 200 mg PO ONCE PM meclizine 12.5 mg Tablet 25 mg PO Q6HR Qty: 50 0RF quetiapine [Seroquel] 100 mg Tablet 200 mg PO BEDTIME Qty: 60 0RF cholecalciferol (vitamin D3) [Vitamin D3] 25 mcg (1,000 unit) Capsule 1,000 unit PO DAILY Referrals: Nicole Davey MD [Primary Care Provider] - Stand Alone Forms: Patient Portal/API
[2023-05-08 02:31] LABS: Troponin I < 0.012 ng/mL (0.01-0.034)
== END 2023-05-08 02:57 | disposition home or self-care (01) ==
PROVIDERS: Emergency Provider Emergency Medicine; PCP Internal Medicine
DX: R07.9 Chest pain, unspecified (principal)
CPT/HCPCS: 36415; 71045; 80053; 82550; 83690; 83735; 84484; 85025; 85610; 85730; 93005; 99284

== ENCOUNTER 2024-05-03 18:07 | Emergency (ER) | payer MEDICARE, OTHER, SELFPAY ==
[2024-02-04 10:54] VITALS: BMI 32.1
[2024-05-03] VITALS (35 sets, daily range): BP systolic 107–154; BP diastolic 55–76; PULSE 67–110; RESP 7–22; TEMP 36.5–37.1; O2SAT 94–99; BMI 29.6
--- NOTE | 2024-05-03 18:15 | EKG_ITS ---
[place] [id number] [address] [place] [address] Test Date: 2024-05-03 Pat Name: Dulce Parks Department: Room: Gender: Female Outreach Clinician: DARLINE : 1950 Requested By: Order Number: [id number] Reading MD: Adi Hopkins Measurements Intervals [place] Rate: 95 P: NC: QRS: 41 QRSD: 72 T: 29 QT: 316 QTc: 397 Interpretive Statements Atrial fibrillation Nonspecific ST abnormality Electronically Signed On 05-04-2024 17:57:54 PST by Adi Hopkins
--- NOTE | 2024-05-03 18:23 | ED_ITS ---
HPI - Arrhythmia/Palpitations General Chief Complaint: Arrhythmia/Palpitations Stated Complaint: states in A Fib Time Seen by Provider: 05/03/24 18:10 History of Present Illness HPI narrative: 73-year-old female with history of atrial fibrillation on Eliquis presents by private vehicle from home for AFib for the last 2-2.5 hours. She was at home about to eat dinner when symptoms began. She had an ablation with Dr. Moulton of electrophysiology at [facility] 1.5 years ago. She states that she has been compliant with her Eliquis and has not missed any doses. Denies other complaints at this time. Related Data Home Medications Medication Instructions Recorded Confirmed coenzyme Q10 100 mg capsule (Co 200 mg PO QDAY ##0 12/25/15 11/06/22 Q-10) lutein 20 mg tablet 20 mg PO DAILY ##0 12/25/15 11/06/22 vitamin E 268 mg (400 unit) capsule 450 mg PO QDAY ##0 05/13/17 11/06/22 cholecalciferol (vitamin D3) 25 1,000 unit PO DAILY 05/28/19 11/06/22 mcg (1,000 unit) capsule (Vitamin D3) Women's Multiple Vitamins 1 tab PO DAILY 11/06/22 11/06/22 lisinopril 10 mg tablet 10 mg PO DAILY 02/04/24 02/04/24 quetiapine 150 mg tablet 150 mg PO DAILY 02/04/24 02/04/24 Previous Rx's Medication Instructions Recorded apixaban 5 mg tablet (Eliquis) 5 mg PO BID #180 tabs 04/14/19 atorvastatin 80 mg tablet 80 mg PO HS #90 tabs 04/14/19 lamotrigine 150 mg tablet 150 mg PO QDAY #90 tabs 04/14/19 triamcinolone acetonide 0.025 % 1 applic topical BID #15 grams 02/04/24 topical cream metoprolol succinate 25 mg 12.5 mg (1/2 x 25 mg) PO DAILY #30 05/03/24 tablet,extended release 24 hr tabs Allergies Allergy/AdvReac Type Severity Reaction Status Date / Time No Known Drug Allergies Allergy Verified 02/04/24 11:19 Patient History Medical History Family history of colon cancer in father Anxiety Depression AF (paroxysmal atrial fibrillation) Low back pain (~07/2016) Hypertension Hyperlipemia Coronary artery disease Bipolar disorder Myocardial infarction (~04/2016) Surgical History History of colonoscopy History of knee replacement Family History Father Cancer Heart disease Mother Mental health problem Stroke Social History marital status: household members: spouse Smoking Status: Former smoker alcohol intake: current Smoking Status: Former smoker alcohol intake frequency: a few times a week Exam Initial Vital Signs Initial Vital Signs: Vital Signs Pulse Rate 69 05/03/24 18:16 Blood Pressure 143/74 H 05/03/24 18:16 Pulse Oximetry 98 05/03/24 18:16 Const: Awake, alert, no acute distress, nontoxic appearing Cardiac: Irregularly irregular rhythm RESP: unlabored, clear bilaterally, no wheezing Skin: Warm, Dry, intact, no rashes Neuro: AO x3, CN II-XII grossly intact, moves all extremities Procedures Cardioversion Consent Signed: Yes Indication: Atrial fibrillation Stability: Stable Number of attempts (shocks): 1 Joules used: 150 Cardiac rhythm post-cardioversion: Sinus Procedural Sedation Consent signed: Yes Time out performed: Yes Indication: cardioversion ASA Class: II Mallampati Airway Classification: Class II Time of Last PO Intake: 12:00 Preparation: clinical research monitor applied, pulse oximeter, capnometry used, supplemental O2 applied, suction/airway equipment at bedside and IV secured IV Propofol dose (mg): 60 Intraservice time/total sedation time (min): 10 ED Sedation Level: Moderate (Concious) Patient Tolerated Procedure: Well and No complications Course Orders Ordered: ED Orders 05/03/24 18:24 CBC Auto Diff [Complete Blood Count AUTO DIFF] Stat CMP [Comprehensive Metabolic Panel] Stat MAG [Magnesium] Stat TSH [Thyroid Stimulating Hormone] Stat EKG-12 Lead Stat Discontinued Medications Metoprolol Succinate (Metoprolol Er 25 Mg Tablet) 12.5 mg PO NOW ONE Stop: 05/03/24 20:50 Last Admin: 05/03/24 20:57 Dose: 12.5 mg Documented By: MARGARITO Propofol (Propofol 200 Mg/20 Ml Vial) 100 mg IV NOW ONE Stop: 05/03/24 18:46 Last Admin: 05/03/24 20:16 Dose: 100 mg Documented By: LS Vital Signs Vital signs: Vital Signs - 8 hr 05/03/24 18:16 05/03/24 18:16 05/03/24 18:30 Temperature 98.7 F Pulse Rate 69 110 H Respiratory Rate 18 Blood Pressure 143/74 H 126/74 Pulse Oximetry 98 99 Oxygen Delivery Method Room Air Oxygen Flow Rate 05/03/24 18:30 05/03/24 18:30 05/03/24 18:45 Temperature Pulse Rate 100 H Respiratory Rate 13 Blood Pressure 154/70 H 128/69 Pulse Oximetry 96 Oxygen Delivery Method Oxygen Flow Rate 05/03/24 18:45 05/03/24 19:00 05/03/24 19:00 Temperature Pulse Rate 98 H 96 H Respiratory Rate 18 12 Blood Pressure 145/64 H Pulse Oximetry 96 94 Oxygen Delivery Method Oxygen Flow Rate 05/03/24 19:15 05/03/24 19:15 05/03/24 19:30 Temperature Pulse Rate 94 H Respiratory Rate 7 L Blood Pressure 140/63 135/65 Pulse Oximetry 96 Oxygen Delivery Method Oxygen Flow Rate 05/03/24 19:30 05/03/24 19:45 05/03/24 19:45 Temperature Pulse Rate 98 H 99 H Respiratory Rate 10 L 8 L Blood Pressure 137/76 Pulse Oximetry 96 95 Oxygen Delivery Method Oxygen Flow Rate 05/03/24 19:48 05/03/24 19:48 05/03/24 19:50 Temperature Pulse Rate 95 H 94 H Respiratory Rate 12 19 Blood Pressure 146/65 H Pulse Oximetry 96 95 Oxygen Delivery Method Oxygen Flow Rate 05/03/24 19:50 05/03/24 19:52 05/03/24 19:53 Temperature 97.7 F Pulse Rate 96 H Respiratory Rate 14 Blood Pressure 116/68 147/73 H 147/73 H Pulse Oximetry 96 Oxygen Delivery Method Oxygen Flow Rate 0.5 05/03/24 19:53 05/03/24 19:55 05/03/24 19:55 Temperature Pulse Rate 88 95 H Respiratory Rate 14 7 L Blood Pressure 138/67 Pulse Oximetry 96 98 Oxygen Delivery Method Oxygen Flow Rate 05/03/24 19:58 05/03/24 19:58 05/03/24 20:00 Temperature Pulse Rate 93 H Respiratory Rate 13 Blood Pressure 143/69 H 139/65 Pulse Oximetry 98 Oxygen Delivery Method Oxygen Flow Rate 05/03/24 20:00 05/03/24 20:03 05/03/24 20:03 Temperature Pulse Rate 94 H 97 H Respiratory Rate 9 L 8 L Blood Pressure 140/69 Pulse Oximetry 96 97 Oxygen Delivery Method Oxygen Flow Rate 05/03/24 20:05 05/03/24 20:05 05/03/24 20:07 Temperature Pulse Rate 94 H Respiratory Rate 11 L Blood Pressure 129/62 138/69 Pulse Oximetry 97 Oxygen Delivery Method Oxygen Flow Rate 05/03/24 20:07 05/03/24 20:10 05/03/24 20:10 Temperature Pulse Rate 100 H 94 H Respiratory Rate 14 10 L Blood Pressure 133/62 Pulse Oximetry 97 97 Oxygen Delivery Method Nasal Cannula Oxygen Flow Rate 0.5 05/03/24 20:13 05/03/24 20:13 05/03/24 20:15 Temperature Pulse Rate 97 H Respiratory Rate 14 Blood Pressure 142/64 H 140/66 Pulse Oximetry 97 Oxygen Delivery Method Nasal Cannula Oxygen Flow Rate 0.5 05/03/24 20:15 05/03/24 20:18 05/03/24 20:18 Temperature Pulse Rate 100 H 71 Respiratory Rate 21 20 Blood Pressure 136/63 Pulse Oximetry 97 97 Oxygen Delivery Method Nasal Cannula Nasal Cannula Oxygen Flow Rate 0.5 0.5 05/03/24 20:20 05/03/24 20:20 05/03/24 20:21 Temperature Pulse Rate 71 68 Respiratory Rate 21 17 Blood Pressure 138/63 118/55 L Pulse Oximetry 94 96 Oxygen Delivery Method Nasal Cannula Oxygen Flow Rate 0.5 0.5 05/03/24 20:23 05/03/24 20:23 05/03/24 20:25 Temperature Pulse Rate 68 Respiratory Rate 22 Blood Pressure 120/58 L 118/55 L Pulse Oximetry 95 Oxygen Delivery Method Nasal Cannula Oxygen Flow Rate 0.5 05/03/24 20:25 05/03/24 20:27 05/03/24 20:27 Temperature Pulse Rate 68 68 Respiratory Rate 17 16 Blood Pressure 117/58 L Pulse Oximetry 96 96 Oxygen Delivery Method Nasal Cannula Nasal Cannula Oxygen Flow Rate 0.5 0.5 05/03/24 20:30 05/03/24 20:30 05/03/24 20:32 Temperature Pulse Rate 69 Respiratory Rate 15 Blood Pressure 114/58 L 107/57 L Pulse Oximetry 96 Oxygen Delivery Method Nasal Cannula Oxygen Flow Rate 0.5 05/03/24 20:32 05/03/24 20:35 05/03/24 20:35 Temperature Pulse Rate 69 70 Respiratory Rate 14 11 L Blood Pressure 108/59 L Pulse Oximetry 97 97 Oxygen Delivery Method Nasal Cannula Nasal Cannula Oxygen Flow Rate 0.5 0.5 05/03/24 20:37 05/03/24 20:37 05/03/24 20:40 Temperature Pulse Rate 70 Respiratory Rate 9 L Blood Pressure 111/59 L 109/55 L Pulse Oximetry 97 Oxygen Delivery Method Nasal Cannula Oxygen Flow Rate 0.5 05/03/24 20:40 05/03/24 20:43 05/03/24 20:43 Temperature Pulse Rate 71 71 Respiratory Rate 11 L 19 Blood Pressure 109/57 L Pulse Oximetry 96 97 Oxygen Delivery Method Nasal Cannula Room Air Oxygen Flow Rate 0.5 05/03/24 20:45 05/03/24 20:45 05/03/24 21:00 Temperature Pulse Rate 70 Respiratory Rate 18 Blood Pressure 113/55 L 113/58 L Pulse Oximetry 97 Oxygen Delivery Method Room Air Oxygen Flow Rate 05/03/24 21:00 05/03/24 21:12 05/03/24 21:12 Temperature Pulse Rate 68 67 Respiratory Rate 16 18 Blood Pressure 119/60 Pulse Oximetry 98 98 Oxygen Delivery Method Room Air Room Air Oxygen Flow Rate MDM - Arrhythmia/Palpitations Differential Diagnosis Differential diagnosis: Likely anxiety, sinus tachycardia and artial fibrillation Lab Data 05/03/24 18:24 05/03/24 18:24 Labs: Lab Results 05/03/24 Range/Units 18:24 WBC 7.3 (4.5-11.0) X10^3/uL RBC 4.47 (4.0-5.2) X10^6/uL Hgb 13.7 (12.0-16.0) g/dL Hct 41.6 (36-46) % MCV 93.0 (80-100) fL MCH 30.6 (26-34) PG MCHC 32.9 (30-36) % RDW 13.3 (11.6-14.8) % Plt Count 229 (150-400) X10^3/uL Neut % (Auto) 55.1 (50-75) % Lymph % (Auto) 31.9 (25-40) % Terry % (Auto) 10.5 (3-14) % Eos % (Auto) 1.6 L (2-4) % Baso % (Auto) 0.9 (0-2) % Neut # (Auto) 4000 (9773-7668) /uL Lymph # (Auto) 2300 (1137-9998) /uL Terry # (Auto) 800 (0-900) /uL Eos # (Auto) 100 (0-450) /uL Baso # (Auto) 100 (0-100) /uL Sodium 138 (137-145) mmol/L Potassium 4.3 (3.4-5.1) mmol/L Chloride 103 (98-107) mmol/L Carbon Dioxide 28 (22-32) mmol/L BUN 28 H (7-17) mg/dL Creatinine 0.87 (0.52-1.04) mg/dL Estimated GFR > 60 (>60) mL/min BUN/Creatinine Ratio 32.2 H (6-22) Glucose 95 (80-110) mg/dL Calcium 10.8 H (8.4-10.2) mg/dL Magnesium 2.1 (1.6-2.3) mg/dL Total Bilirubin 0.6 (0.2-1.3) mg/dL AST 39 H (14-36) IU/L ALT 42 H (<35) IU/L Alkaline Phosphatase 102 (38-126) U/L Total Protein 8.1 (6.3-8.2) g/dL Albumin 4.9 (3.5-5.0) g/dL Globulin 3.2 (1.7-4.1) g/dL Albumin/Globulin Ratio 1.5 (1.0-2.8) TSH 4.57 (0.47-4.68) uIU/mL Point of Care Testing Test Results Negative MDM Narrative Medical decision making narrative: Well-appearing patient with spontaneous conversion of sinus rhythm to atrial fibrillation at home. She underwent ablation approximately 1.5 years ago and has been in sinus rhythm since that time. She reports 100% compliance with her Eliquis in the last month. Electrolytes within normal limits, EKG nonischemic. Patient was successfully cardioverted after single synchronized attempt at 150 joules. Patient is not on any beta-blockers at this time. Post procedure resting heart rate in the 60s. Counseled to start low-dose metoprolol at home and to follow up with her food and beverage controller as soon as possible for further guidance. ED return precautions discussed. Discharge Plan Departure Patient Disposition: Home Clinical Impression: Atrial fibrillation Instructions: DI for Atrial Fibrillation Activity Restrictions/Additional Instructions: You were found to be in atrial fibrillation today. Your blood work and electrolytes were normal. We were able to cardiovert you with a single shock. Start taking metoprolol daily to help try to prevent you going back into atrial fibrillation. Start at 12.5 mg daily. You may increase to 25 mg daily if your heart rate is not below 60 beats per minute and your blood pressure is not too low. Call your food and beverage controller 1st thing tomorrow morning for a follow up appointment. If you go back into atrial fibrillation or have any other concerns please come back to the ER for repeat evaluation. Prescriptions: New metoprolol succinate 25 mg tablet extended release 24 hr 12.5 mg PO DAILY Qty: 30 0RF No Action lisinopril 10 mg tablet 10 mg PO DAILY quetiapine 150 mg tablet 150 mg PO DAILY triamcinolone acetonide 0.025 % cream 1 applic topical BID Qty: 15 0RF coenzyme Q10 [Co Q-10] 100 MG capsule 200 mg PO QDAY Qty: 0 lutein 20 MG tablet 20 mg PO DAILY Qty: 0 vitamin E 268 mg (400 unit) Capsule 450 mg PO QDAY Qty: 0 Eliquis 5 mg tablet 5 mg PO BID Qty: 180 0RF atorvastatin 80 mg tablet 80 mg PO HS Qty: 90 1RF lamotrigine 150 mg tablet 150 mg PO QDAY Qty: 90 1RF Women's Multiple Vitamins 1 tab PO DAILY cholecalciferol (vitamin D3) [Vitamin D3] 25 mcg (1,000 unit) Capsule 1,000 unit PO DAILY Referrals: Nicole Davey MD [Primary Care Provider] - Stand Alone Forms: Patient Portal/API/Survey
[2024-05-03 18:32] LABS: Add Manual Diff / Slide Review NO; Basophils Absolute Auto 100 /uL (0-100); Basophils Percent Auto 0.9 % (0-2); Eosinophils Absolute Auto 100 /uL (0-450); Eosinophils Percent Auto 1.6 % (2-4); Hematocrit 41.6 % (36-46); Hemoglobin 13.7 g/dL (12.0-16.0); Lymphocytes Absolute Auto 2300 /uL (1100-4500); Lymphocytes Percent Auto 31.9 % (25-40); Mean Corpuscular HGB Conc 32.9 % (30-36); Mean Corpuscular Hemoglobin 30.6 PG (26-34); Monocytes Absolute Auto 800 /uL (0-900); Monocytes Percent Auto 10.5 % (3-14); Neutrophils Absolute Auto 4000 /uL (1500-7000); Neutrophils Percent Auto 55.1 % (50-75); Platelet Count 229 X10^3/uL (150-400); Red Blood Cell Count 4.47 X10^6/uL (4.0-5.2); Red Cell Distribution Width 13.3 % (11.6-14.8); White Blood Cell Count 7.3 X10^3/uL (4.5-11.0)
[2024-05-03 18:47] LABS: Alanine Aminotransferase 42 IU/L (<35); Albumin 4.9 g/dL (3.5-5.0); Albumin Globulin Ratio 1.5 (1.0-2.8); Alkaline Phosphatase 102 U/L (38-126); Aspartate Aminotransferase 39 IU/L (14-36); BUN Creatinine Ratio 32.2 (6-22); Bilirubin Total 0.6 mg/dL (0.2-1.3); Blood Urea Nitrogen 28 mg/dL (7-17); Calcium 10.8 mg/dL (8.4-10.2); Carbon Dioxide 28 mmol/L (22-32); Chloride 103 mmol/L (98-107); Estimated Glomerular Filt Rate > 60 mL/min (>60); Globulin 3.2 g/dL (1.7-4.1); Glucose 95 mg/dL (80-110); HEMOLYSIS < 15 (0-50); Magnesium 2.1 mg/dL (1.6-2.3); Potassium 4.3 mmol/L (3.4-5.1); Sodium 138 mmol/L (137-145); Total Protein 8.1 g/dL (6.3-8.2)
[2024-05-03 19:25] LABS: Thyroid Stimulating Hormone 4.57 uIU/mL (0.47-4.68)
[2024-05-03] MEDS: propofoL 200 MG/20 ML VIAL 100 MG IV (20:16)
--- NOTE | 2024-05-03 20:20 | PC.NURSE ---
Repeat EKG done
--- NOTE | 2024-05-03 20:22 | EKG_ITS ---
[address] [address] Test Date: 2024-05-03 Pat Name: Dulce Parks Department: Room: Gender: Female Welder Gun: KEMAL JONATHAN : 1950 Requested By: Order Number: [id number] Reading MD: Adi Hopkins Measurements Intervals [place] Rate: 70 P: 69 MD: 212 QRS: 11 QRSD: 74 T: 32 QT: 388 QTc: 419 Interpretive Statements Sinus rhythm with 1st degree AV block with premature atrial complexes Anteroseptal infarct , age undetermined Electronically Signed On 05-04-2024 17:58:23 PST by Adi Hopkins
--- NOTE | 2024-05-03 20:41 | PC.NURSE ---
Pt awake and alert sitting in ED stretcher speaking with spouse and singing. O2 and ETCO2 monitors removed and water provided for sipping. Pt states I'm feeling better.
[2024-05-03] MEDS: METOPROLOL ER 25 MG TABLET 12.5 MG PO (20:57)
--- NOTE | 2024-05-03 21:20 | PC.NURSE ---
Pt taking po fluids without difficulty. Ambulatory around department without difficulty or assistance.
== END 2024-05-03 21:23 | disposition home or self-care (01) ==
PROVIDERS: Emergency Provider Emergency Medicine; PCP Internal Medicine
DX: I48.91 Unspecified atrial fibrillation (principal); Z79.01 Long term (current) use of anticoagulants; I44.0 Atrioventricular block, first degree; I25.2 Old myocardial infarction; I10 Essential (primary) hypertension; Z87.891 Personal history of nicotine dependence
CPT/HCPCS: 36415; 80053; 83735; 84443; 85025; 92960; 93005; 99152; 99285; J2704

== ENCOUNTER → 2024-05-04 13:26 | Outpatient (CLI) | payer MEDICARE, OTHER, SELFPAY ==
[2024-02-04 10:54] VITALS: BMI 32.1
--- NOTE | 2024-05-04 | DI.MG.S_ITS ---
BILATERAL DIGITAL SCREENING MAMMOGRAM 3D/2D WITH CAD: 05/04/2024 CLINICAL: Routine screening. Comparison is made to exams dated: 06/02/2022 mammogram, 04/01/2021 mammogram, and 03/12/2020 mammogram - [facility]. There are scattered areas of fibroglandular density (category b / 25%-50% glandular tissue). Current study was also evaluated with a Computer Aided Detection (CAD) system. No significant masses, calcifications, or other findings are seen in either breast. There has been no significant interval change. IMPRESSION: NEGATIVE There is no mammographic evidence of malignancy. A 1 year screening mammogram is recommended. Based on the Tyrer Cuzick model (a risk assessment model) the patient's lifetime risk is 5.9% and her 10 year risk is 4.8%. According to the ACR, ACS, and NCCN guidelines, an annual breast MRI exam along with mammogram is recommended if the patient's lifetime risk is 20% or greater. This exam was interpreted at Station ID: [id number]. NOTE: For mammograms, a report in lay terms will be sent to the patient. Approximately 15% of breast malignancies will not be visualized mammographically. In the management of a palpable breast mass, a negative mammogram must not discourage biopsy of a clinically suspicious lesion. Electronically Signed By: Mitch ellis/mamie:05/04/2024 16:10:40 letter sent: Normal Exam ACR BI-RADS Category 1: Negative
== END ==
PROVIDERS: PCP Internal Medicine; Referring Provider Internal Medicine; Visit Provider Internal Medicine
DX: Z12.31 Encounter for screening mammogram for malignant neoplasm of breast (principal)
CPT/HCPCS: 77063; 77067

== ENCOUNTER → 2024-09-26 07:40 | Outpatient (CLI) | payer MEDICARE, OTHER, SELFPAY ==
[2024-02-04 10:54] VITALS: BMI 32.1
--- NOTE | 2024-09-26 07:46 | DI.NM.S_ITS ---
PROCEDURE: NM DENNIS PERF SPECT R&S PHARM Rest and pharmacological stress myocardial perfusion SPECT with gated imaging and ejection fraction RADIOPHARMACEUTICAL: 12.4 mCi Tc-99m tetrafosmin IV at rest and 25.3 mCi Tc-99m tetrafosmin IV at peak effect of pharmacological stress. [id number] was performed. INDICATIONS: Persistent AFIB TECHNIQUE: Radiopharmaceutical was injected at peak stress test, and also at rest. SPECT images were obtained. SPECT myocardial perfusion images were displayed in short axis, horizontal long axis, and vertical long axis views. Gated images were reviewed using [employer] software. COMPARISON: None. CARDIAC STRESS: A pharmacologic stress test was performed under the supervision of an attending staff, using an infusion of lexiscan 0.4mg IV X1. Hemodynamic data: There is normal blood pressure and heart rate response to pharmacologic stress. Symptoms: The patient denied anginal chest pain. Aminophylline: none EKG: No diagnostic changes of ischemia; no ectopy. FINDINGS: Raw data: There is good myocardial uptake of radiotracer. No significant motion artifacts. Dkkt-sz-[id number] ratio is 0.35 (normal is less than 0.38 for tetrafosmin tracer). Left ventricle function: Gated images demonstrate normal left ventricular wall thickening. No segmental wall motion abnormalities. No transient ischemic dilation; TID is 1.07 (normal less than 1.3). Left ventricle resting end diastolic volume is 84 mL. Left ventricle stress ejection fraction is 78%; normal range is above 45%. Myocardial perfusion: There is a mildly intense defect in the distal anterior wall at rest that improves with stress and resolves with stress prone imaging, suggesting breast attenuation artifact. No ischemia and no infarction present. IMPRESSION: Low risk, normal pharm nuclear stress test from inducible ischemia standpoint. 1) There is a mildly intense defect in the distal anterior wall at rest that improves with stress and resolves with stress prone imaging, suggesting breast attenuation artifact. No ischemia and no infarction present. 2) Normal left ventricular size, wall motion, and systolic function (EF post stress 78%). 3) No diagnostic ST changes with lexsican. 4) No angina during the study. 5) No prior nuclear stress test available for comparison. Dictated by: Zoran Florez MD on 09/27/2024 at 13:47 Approved by: Zoran Florez MD on 09/27/2024 at 13:49
== END ==
PROVIDERS: PCP Internal Medicine; Referring Provider Internal Medicine Cardiovascular Disease; Visit Provider Internal Medicine Cardiovascular Disease
DX: R07.9 Chest pain, unspecified (principal); I48.19 Other persistent atrial fibrillation
CPT/HCPCS: 78452; 93017; A9502; J2785

== ENCOUNTER → 2025-01-31 13:18 | Outpatient (CLI) | payer MEDICARE, OTHER, SELFPAY ==
[2024-02-04 10:54] VITALS: BMI 32.1
--- NOTE | 2025-01-31 13:20 | DI.CT.S_ITS ---
PROCEDURE: CT KIDNEY URETER BLADDER (KUB) INDICATIONS: Left flank pain TECHNIQUE: CT of the abdomen and pelvis was obtained without intravenous contrast. Coronal and sagittal reformats were performed. For radiation dose reduction, the following was used: automated exposure control, adjustment of mA and/or kV according to patient size. COMPARISON: None. FINDINGS: Image quality: Diagnostic. Lower Chest: No significant findings. ABDOMEN: Liver: No contour-deforming mass. Subcentimeter hypodensities too small to fully characterize. Gallbladder: Gallstones. No wall thickening. Biliary ducts: No biliary dilation. Pancreas: No ductal dilation. Spleen: Size is within normal limits. Adrenal Glands: Incidental indeterminate 1.3 cm left adrenal nodule. Kidneys and Ureters: No hydronephrosis. No contour-deforming mass. Multiple nonobstructing punctate right renal stones measuring up to 4 mm in the inferior pole (2/64). No left renal stones are visualized. Bilateral renal cysts. Stomach and Bowel: Normal colonic caliber, without significant wall thickening. Peritoneum: No abnormal intraperitoneal fluid. No free air. Ventral Wall: No significant hernia. Abdominal Nodes: No retroperitoneal or mesenteric adenopathy by size criteria. Vessels: Aorta and inferior vena cava are normal in size. PELVIS: Pelvic Organs: Unremarkable. Bladder: Unremarkable. Pelvic Nodes: No enlarged lymph nodes. Miscellaneous: No inguinal hernias are seen. Bones: No aggressive osseous abnormality. IMPRESSION: No etiology for left flank pain is identified. Multiple nonobstructing right renal stones measuring up to 4 mm in the lower pole. Dictated by: Brain Lentz M.D. on 01/31/2025 at 18:03 Approved by: Brain Lentz M.D. on 01/31/2025 at 18:08
== END ==
LOC: CT 13:20
PROVIDERS: Family Provider Internal Medicine; PCP Internal Medicine; Referring Provider Internal Medicine; Visit Provider Internal Medicine
DX: N20.0 Calculus of kidney (principal); N28.1 Cyst of kidney, acquired; R31.29 Other microscopic hematuria; R10.A2 Flank pain, left side
CPT/HCPCS: 74176